=== PATIENT | female | born 1940 | race Two or more races ===

== ENCOUNTER 2019-07-04 11:59 | Inpatient (IN) | payer OTHER, MEDICAID ==
[~2019-07-04] VITALS: Ht 183.2 cm; Wt 73.8 kg
[2019-07-04] MEDS ORDERED: ASPirin 81 mg TAB PO ONE ×2 (12:45→13:00)
[2019-07-04 12:52] LABS: Basophils # (auto) 0.1 10 ^3/uL (0-0.2); Mean Corpuscular Volume 71.5 fL (80.0-100.0); Nucleated Red Blood Cells % 0.1 %; Red Blood Cells 3.96 10^6/uL (4.0-5.20)
[2019-07-04 12:54] LABS: Basophils % (auto) 0.7 % (0.0-2.0); Eosinophils # (auto) 0.2 10 ^3/uL (0-0.8); Eosinophils % (auto) 1.7 % (0.0-7.0); Hematocrit 28.4 % (36.0-46.0); Hemoglobin 8.8 g/dL (12.2-16.2); Lymphocytes % (auto) 22.2 % (10.0-50.0); Mean Corpuscular Hemoglobin 22.2 pg (28.0-32.0); Monocytes # (auto) 0.7 10 ^3/uL (0-1.3); Monocytes % (auto) 7.7 % (0.0-12.0); Neutrophils # (auto) 5.9 10 ^3/uL (1.6-8.6); Neutrophils % (auto) 67.7 % (37.0-80.0); Platelet Count (auto) 666 10^3/uL (140-450); White Blood Cell 8.8 10^3/uL (4.4-10.8)
[2019-07-04 13:02] LABS: Partial Thromboplastin Time 27.1 sec (23.64-32.05)
[2019-07-04 13:08] LABS: Albumin 3.8 g/dL (3.4-5.0); Anion Gap 8 (5-15); Blood Urea Nitrogen 14 mg/dL (7-18); Carbon Dioxide 24 mmol/L (21-32); Chloride 104 mmol/L (98-107); Glucose 116 mg/dL (74-106); Potassium 4.1 mmol/L (3.5-5.1); Sodium 136 mmol/L (136-145)
[2019-07-04 13:13] LABS: Alanine Aminotransferase 28 U/L (13-56); Alkaline Phosphatase 150 U/L (45-117); Aspartate Aminotransferase 13 U/L (15-37); BUN/Creatinine Ratio 15.6; Bilirubin, Total 0.2 mg/dL (0.2-1.0); GFR African American 78 mL/min; GFR Non-African American 65 mL/min; Total Protein 8.1 g/dL (6.4-8.2)
[2019-07-04] MEDS ORDERED: MORPHINE SULF INJ 2 MG/ML SYRINGE 1ML IV ONE (14:15)
[2019-07-04] MEDS ORDERED: ONDANSETRON HCL 4 MG/2 ML VIAL IV ONE (14:15)
[2019-07-04] MEDS ORDERED: ONDANSETRON HCL 4 MG/2 ML VIAL IV PRN (15:00)
[2019-07-04] MEDS ORDERED: NITROGLYCERIN 0.4 MG SL TAB SL PRN (15:00)
[2019-07-04] MEDS ORDERED: hydrALAZINE HCL 20 MG/ML VL IV PRN (15:00)
[2019-07-04] MEDS ORDERED: MORPHINE SULF INJ 2 MG/ML SYRINGE 1ML IV PRN ×2 (15:00)
[2019-07-04] MEDS ORDERED: BACLOFEN 10 MG TAB PO PRN (15:00)
[2019-07-04 15:19] VITALS: BP 107/33
[2019-07-04 16:00] VITALS: BP 127/67
[2019-07-04 16:55] VITALS: BP 127/67
[2019-07-04] MEDS: BUDESONIDE (INHALATION) 0.5 MG/2 ML NEB NEB SCH (18:27)
[2019-07-04] MEDS: IPRATROPIUM BROM 0.5 MG/2.5ML INH SOL NEB SCH (18:27)
[2019-07-04] MEDS: ALBUTEROL SULF 2.5 MG/0.5ML(0.5%) NEB SOLN NEB SCH (18:27)
[2019-07-04 21:00] VITALS: BP 135/60
[2019-07-04] MEDS ORDERED: TEMAZEPAM 15 MG CAP PO ONE (21:15)
[2019-07-04] MEDS: MONTELUKAST SODIUM 10 MG TAB PO SCH (21:25)
[2019-07-04] MEDS: ATORVASTATIN 20 MG TAB PO SCH (21:25)
[2019-07-04] MEDS ORDERED: METOPROLOL TARTRATE 25 MG TAB PO SCH (22:00)
[2019-07-05] MEDS ORDERED: ALBU2TAB4 PO (04:48)
[2019-07-05] MEDS ORDERED: BUPR150T6 PO (04:48)
[2019-07-05] MEDS ORDERED: ESCI20TA PO (04:48)
[2019-07-05] MEDS ORDERED: TRAM50TA2 PO (04:48)
[2019-07-05] MEDS ORDERED: GABA300C10 PO (04:48)
[2019-07-05] MEDS ORDERED: ASPI81CH43 PO (04:48)
[2019-07-05] MEDS ORDERED: MONT10TA34 OR (04:48)
[2019-07-05] MEDS ORDERED: ALEN1TAB32 PO (04:48)
[2019-07-05] MEDS ORDERED: ALBU2TAB4 INH (04:48)
[2019-07-05] MEDS ORDERED: DICL1.3D21 TD (04:48)
[2019-07-05] MEDS ORDERED: PRE1T PO (04:48)
[2019-07-05] MEDS ORDERED: BECL80AE11 IN (04:48)
[2019-07-05] MEDS ORDERED: LOSA-39 PO (04:48)
[2019-07-05 05:00] VITALS: BP 128/69
[2019-07-05 06:24] LABS: Basophils # (auto) 0 10 ^3/uL (0-0.2); Basophils % (auto) 0.7 % (0.0-2.0); Eosinophils # (auto) 0.2 10 ^3/uL (0-0.8); Eosinophils % (auto) 2.7 % (0.0-7.0); Hematocrit 26.2 % (36.0-46.0); Hemoglobin 8.4 g/dL (12.2-16.2); Lymphocytes # (auto) 1.3 10 ^3/uL (0.4-5.4); Lymphocytes % (auto) 19.4 % (10.0-50.0); Mean Corpuscular Hemoglobin 22.8 pg (28.0-32.0); Mean Corpuscular Hgb Conc. 31.9 g/dL (32.0-36.0); Mean Corpuscular Volume 71.4 fL (80.0-100.0); Monocytes # (auto) 0.6 10 ^3/uL (0-1.3); Monocytes % (auto) 8.2 % (0.0-12.0); Neutrophils # (auto) 4.7 10 ^3/uL (1.6-8.6); Nucleated Red Blood Cells % 0.1 %; Platelet Count (auto) 619 10^3/uL (140-450); Red Blood Cells 3.67 10^6/uL (4.0-5.20); Red Cell Distribution Width 17.8 % (11.8-14.3); White Blood Cell 6.8 10^3/uL (4.4-10.8)
[2019-07-05 06:41] LABS: BUN/Creatinine Ratio 19.3; Calcium 8.3 mg/dL (8.5-10.1); Potassium 4.2 mmol/L (3.5-5.1)
[2019-07-05 06:44] LABS: INR 1.02 (0.9-1.15); Partial Thromboplastin Time 27.1 sec (23.64-32.05)
[2019-07-05] MEDS: BUDESONIDE (INHALATION) 0.5 MG/2 ML NEB NEB SCH ×2 (07:45→18:11)
[2019-07-05] MEDS: ALBUTEROL SULF 2.5 MG/0.5ML(0.5%) NEB SOLN NEB SCH ×3 (07:45→18:11)
[2019-07-05] MEDS: IPRATROPIUM BROM 0.5 MG/2.5ML INH SOL NEB SCH ×3 (07:45→18:11)
[2019-07-05 08:00] VITALS: BP 101/49
[2019-07-05] MEDS: HYDROcodone-ACET 5/325MG TAB PO PRN ×2 (08:03→20:50)
[2019-07-05] MEDS: ASPirin-EC 81 mg tab PO SCH (09:27)
[2019-07-05] MEDS: LISINOPRIL 10 MG TAB PO SCH (09:28)
[2019-07-05 13:00] VITALS: BP 114/45
[2019-07-05 14:06] LABS: % Iron Saturation 3.1 % (15-50)
[2019-07-05 17:00] VITALS: BP 125/53
[2019-07-05 20:00] VITALS: BP 142/64
[2019-07-05] MEDS: CYCLOBENZAPRINE HCL 10 MG TAB PO PRN (20:50)
[2019-07-05 22:00] VITALS: BP 142/64
[2019-07-05] MEDS: METOPROLOL TARTRATE 25 MG TAB PO SCH (22:25)
[2019-07-05] MEDS: MONTELUKAST SODIUM 10 MG TAB PO SCH (22:25)
[2019-07-05] MEDS: ATORVASTATIN 20 MG TAB PO SCH (22:26)
[2019-07-06] MEDS: ACETAMINOPHEN 500 MG TAB PO PRN ×2 (04:55→13:18)
[2019-07-06] MEDS: CYCLOBENZAPRINE HCL 10 MG TAB PO PRN ×2 (04:55→22:02)
[2019-07-06 05:00] VITALS: BP 136/65
[2019-07-06] MEDS: IPRATROPIUM BROM 0.5 MG/2.5ML INH SOL NEB SCH ×3 (06:07→18:35)
[2019-07-06] MEDS: BUDESONIDE (INHALATION) 0.5 MG/2 ML NEB NEB SCH ×2 (06:07→18:35)
[2019-07-06] MEDS: ALBUTEROL SULF 2.5 MG/0.5ML(0.5%) NEB SOLN NEB SCH ×3 (06:07→18:35)
[2019-07-06 06:31] LABS: Hemoglobin 8.3 g/dL (12.2-16.2)
[2019-07-06 06:34] LABS: Hematocrit 25.8 % (36.0-46.0)
[2019-07-06 06:54] LABS: Cholesterol 134 mg/dL (< 200); HDL Cholesterol 39 mg/dL (40-59); LDL Cholesterol 72 mg/dL (< 100); Triglycerides 126 mg/dL (< 150)
[2019-07-06 09:00] VITALS: BP 121/50
[2019-07-06] MEDS: ASPirin-EC 81 mg tab PO SCH (09:13)
[2019-07-06] MEDS: LISINOPRIL 10 MG TAB PO SCH (09:14)
[2019-07-06] MEDS: METOPROLOL TARTRATE 25 MG TAB PO SCH ×2 (09:15→22:04)
[2019-07-06] MEDS: HYDROcodone-ACET 5/325MG TAB PO PRN ×2 (09:19→17:40)
[2019-07-06] MEDS ORDERED: LACTULOSE 20Gm/30ML SOLN PO PRN (09:45)
[2019-07-06 13:00] VITALS: BP 125/52
[2019-07-06] MEDS: DOCUSATE SOD 100 MG CAP PO SCH ×2 (13:16→22:00)
[2019-07-06 17:00] VITALS: BP 130/50
[2019-07-06 22:00] VITALS: BP 117/56
[2019-07-06] MEDS: ATORVASTATIN 20 MG TAB PO SCH (22:03)
[2019-07-06] MEDS: MONTELUKAST SODIUM 10 MG TAB PO SCH (22:03)
[2019-07-07 04:44] VITALS: BP 133/55
[2019-07-07] MEDS: IPRATROPIUM BROM 0.5 MG/2.5ML INH SOL NEB SCH ×2 (07:21→12:00)
[2019-07-07] MEDS: ALBUTEROL SULF 2.5 MG/0.5ML(0.5%) NEB SOLN NEB SCH ×2 (07:21→12:00)
[2019-07-07] MEDS: BUDESONIDE (INHALATION) 0.5 MG/2 ML NEB NEB SCH (07:21)
[2019-07-07 09:00] VITALS: BP 127/56
[2019-07-07] MEDS: CYCLOBENZAPRINE HCL 10 MG TAB PO PRN (09:07)
[2019-07-07] MEDS: ASPirin-EC 81 mg tab PO SCH (09:07)
[2019-07-07] MEDS: METOPROLOL TARTRATE 25 MG TAB PO SCH (09:08)
[2019-07-07] MEDS: LISINOPRIL 10 MG TAB PO SCH (09:09)
[2019-07-07] MEDS: DOCUSATE SOD 100 MG CAP PO SCH ×2 (09:09→09:12)
[2019-07-07 13:00] VITALS: BP 117/62
[2019-07-07 13:02] VITALS: BP 125/56
[2019-07-07 14:50] VITALS: BP 117/62
== END 2019-07-07 16:05 | disposition home or self-care (01) | DRG 206 ==
LOC: ER 11:59 → TELE 12:00 → TELE-EAST 15:46
PROVIDERS: ADMIT Nurse Practitioner Acute Care; ATTEND Internal Medicine
DX: M94.0 Chondrocostal junction syndrome [Tietze] (principal); D68.59 Other primary thrombophilia; D50.8 Other iron deficiency anemias; J44.9 Chronic obstructive pulmonary disease, unspecified; I10 Essential (primary) hypertension; M81.0 Age-related osteoporosis without current pathological fracture; F41.9 Anxiety disorder, unspecified; G89.29 Other chronic pain; I11.9 Hypertensive heart disease without heart failure; M48.00 Spinal stenosis, site unspecified; F32.9 Major depressive disorder, single episode, unspecified; M54.5 Low back pain; S32.020G Wedge compression fracture of second lumbar vertebra, subsequent encounter for fracture with delayed healing; S22.050G Wedge compression fracture of T5-T6 vertebra, subsequent encounter for fracture with delayed healing
CPT/HCPCS: 36415; 71046; 72128; 72131; 73010; 80048; 80053; 80061; 82270; 83036; 83540; 83550; 83735; 83880; 84443; 84484; 85014; 85018; 85025; 85379; 85610; 85730; 86141; 93005; 93306; 94640; 96374; 96375; 97116; 97163; 97530; G0378; J2405

== ENCOUNTER 2024-02-14 02:25 | Inpatient (IN) | payer OTHER, MEDICAID ==
[2024-02-14] VITALS (20 sets, daily range): BP systolic 103–140; BP diastolic 38–76; PULSE 21–103; RESP 18–41; TEMP 98.8; O2SAT 93–99
[~2024-02-14] VITALS: Ht 147.3 cm; Wt 57.8 kg
[~2024-02-14 02:25] MED LIST: ALBU2TAB11 INH; ALEN70TA74 PO; ASPI81CH43 PO; BECL80AE11 IN; BUPR150T18 PO; DICL1.3P TD; ESCI20TA PO; GABA-1250 PO; LOSA-535 PO; MONT-8 OR; PRE1T PO; TRAM50TA2 PO
[2024-02-14] MEDS: ALBUTEROL SULF 2.5 MG/0.5ML(0.5%) NEB SOLN NEB ONE ×2 (02:30→02:45)
[2024-02-14] MEDS: IPRATROPIUM BROM 0.5 MG/2.5ML INH SOL NEB ONE ×2 (02:30→02:45)
[2024-02-14] MEDS: methylPREDNISolone SOD SUCC 125 MG/2 ML VL IV ONE (02:39)
--- NOTE | 2024-02-14 03:01 | ED.PDOC ---
History of Present Illness HPI Comments 83 y/o F is BIBA for c/o shortness of breath, today. Per EMS report, patient endorses on sudden and unprovoked onset of difficulty breathing, this morning. She was noted to have been found with a SpO2 of 80%RA and wheezing and placed on CPAP after given a 1x breathing Tx en route. At time of assessment, patient denies having any chest pain, cough, fever, chills, or other associated symptoms or modifiers at this time. 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: Denies all WELL HEAD PUMPER Hx Family History Family History: Unknown Social History Smoker: Non-Smoker Alcohol: Denies ETOH Use Drugs: Denies Drug Use Lives In: Home Respiratory: reports: shortness of breath All Other Systems: Reviewed and Negative (negative unless otherwise stated above or in HPI) Physical Exam General Appearance: No Apparent Distress, Normal HEENT: Normal ENT Inspection, Pharynx Normal, TMs Normal Neck: Full Range of Motion, Non-Tender, Normal, Normal Inspection Respiratory: Decreased Breath Sounds, Respiratory Distress, Wheezing, Other (labored breathing, on CPAP, chest tightness) Cardiovascular: No Edema, No JVD, No Murmur, No Gallop, Normal Peripheral Pulses, Regular Rate/Rhythm Breast Exam: Deferred Gastrointestinal: No Organomegaly, Non Tender, No Pulsatile Mass, Normal Bowel Sounds, Soft Genitalia: Deferred Pelvic: Deferred Rectal: Deferred Extremities: No calf tenderness, Normal capillary refill, Normal inspection, Normal range of motion, Non-tender, No pedal edema Musculoskeletal : Apperance: Normal Neurologic: Alert, printing services coordinator II-XII nml as Tested, No Motor Deficits, Normal Affect, Normal Mood, No Sensory Deficits Cerebellar Function: Normal Reflexes: Normal Skin: Dry, Normal Color, Warm Lymphatic: No Adenopathy Was a procedure done? Was a procedure done?: No EKG EKG : Pulse Rate (adult): 91 Weed: Normal Cardiac Rhythm: NSR Block: None Hypertrophy: None ST: Normal Differential Dx Considerations may include: respiratory distress, URI, viral syndrome, PE, PNA, pleural effusions X-Ray, Labs, Meds, VS Vital Signs Date Time Temp Pulse Resp B/P (MAP) Pulse Ox O2 Delivery O2 Flow Rate FiO2 02/14/24 04:04 109 Facial BiPAP Mask 50 02/14/24 04:00 83 27 125/40 (68) 95 02/14/24 03:01 91 02/14/24 02:53 103 41 99 Bi-Pap+ 100 100 02/14/24 02:42 91 02/14/24 02:36 103 41 143/85 (104) 99 02/14/24 02:35 116 Facial BiPAP Mask 100 02/14/24 02:25 97.0 87 38 127/86 (100) 91 Lab Test 02/14/24 05:10 02/14/24 04:04 02/14/24 03:38 Range/Units Troponin I High Sensitivity Pending 67 *H </=34 ng/L White Blood Count 20.0 H 4.4-10.8 10^3/uL Red Blood Count 4.30 4.0-5.20 10^6/uL Hemoglobin 11.4 L 12.2-16.2 g/dL Hematocrit 34.5 L 36.0-46.0 % Mean Corpuscular Volume 80.2 80.0-100.0 fL Mean Corpuscular Hemoglobin 26.5 L 28.0-32.0 pg Mean Corpuscular Hemoglobin Concent 33.1 32.0-36.0 g/dL Red Cell Distribution Width 15.1 H 11.8-14.3 % Platelet Count 467 H 140-450 10^3/uL Mean Platelet Volume 7.9 6.9-10.8 fL Neutrophils (%) (Auto) 88.7 H 37.0-80.0 % Lymphocytes (%) (Auto) 8.0 L 10.0-50.0 % Monocytes (%) (Auto) 2.5 0.0-12.0 % Eosinophils (%) (Auto) 0.6 0.0-7.0 % Basophils (%) (Auto) 0.2 0.0-2.0 % Neutrophils # (Auto) 17.7 H 1.6-8.6 10 ^3/uL Lymphocytes # (Auto) 1.6 0.4-5.4 10 ^3/uL Monocytes # (Auto) 0.5 0-1.3 10 ^3/uL Eosinophils # (Auto) 0.1 0-0.8 10 ^3/uL Basophils # (Auto) 0 0-0.2 10 ^3/uL Nucleated Red Blood Cells 0.0 % Prothrombin Time 11.1 9.3-11.8 sec Prothrombin Time INR 1.05 0.9-1.15 Activated Partial Thromboplast Time 20.0 L 24.5-34.5 SEC Sodium Level 140 136-145 mmol/L Potassium Level 3.3 L 3.5-5.1 mmol/L Chloride Level 107 98-107 mmol/L Carbon Dioxide Level 23 20-31 mmol/L Anion Gap 10 5-15 Blood Urea Nitrogen 10 9-23 mg/dL Creatinine 0.92 0.550-1.02 mg/dL Glomerular Filtration Rate Calc 62 >90 mL/min BUN/Creatinine Ratio 10.9 10.0-20.0 Serum Glucose 185 H 74-106 mg/dL Calcium Level 9.2 8.7-10.4 mg/dL Magnesium Level 1.9 1.6-2.6 mg/dL Total Bilirubin 0.2 0.2-1.0 mg/dL Aspartate Amino Transferase (AST) 13 13-40 U/L Alanine Aminotransferase (ALT) 18 7-40 U/L Alkaline Phosphatase 115 46-116 U/L B-Type Natriuretic Peptide 439.38 0-100 pg/mL Total Protein 6.5 5.7-8.2 g/dL Albumin 4.0 3.2-4.8 g/dL Blood Gas Specimen Type Arterial Blood Gas Sample Site Right radial Blood Gas Patient Temperature 37.0 Arterial Blood Date Drawn [id number] Arterial Blood pH 7.313 L 7.350-7.450 Arterial Blood Partial Pressure CO2 40.2 32.0-45.0 mmHg Arterial Blood Partial Pressure O2 195.3 H 83.0-108.0 mmHg Arterial Blood HCO3 19.9 L 21.0-28.0 mmol/L Arterial Blood Oxygen Saturation 99.4 H 94.0-98.0 % Arterial Blood Base Excess -5.9 L -2.0-3.0 mmol/L Arterial Blood Oxyhemoglobin 98.5 H 94.0-98.0 % Arterial Blood Carboxyhemoglobin 0.3 L 0.5-1.5 % Arterial Blood Methemoglobin 0.6 0.0-1.5 % Naga Test Yes Blood Gas Total Hemoglobin 12.40 12.0-16.0 g/dL Blood Gas Modality Mask - bipap Blood Gas Spontaneous Rate 27 FiO2 % 100.0 Blood Gas EPAP 6 Blood Gas IPAP 12 Current Medications Medications (Trade) Dose Ordered Sig/Bria Route Start Time Stop Time Status Last Admin Methylprednisolone Sodium Succinate (Solu Medrol) 250 mg ONCE ONCE IV 02/14/24 02:30 02/14/24 02:31 DC 02/14/24 02:39 Ceftriaxone Sodium 50 ml @ 100 mls/hr ONCE ONCE IV 02/14/24 03:00 02/14/24 03:29 DC 02/14/24 03:10 [place] [id number] Ph: [phone] DIAGNOSTIC IMAGING Diagnostic Imaging Report : [id number] Signed PATIENT: SYL CULLEN ACCT: [id number] UNIT: [id number] : 1940 LOC: ER ROOM / BED: / AGE / SEX: 83 / F ADM STATUS: REG ER SERVICE 8 ORDERING PHYSICIAN: KATHERYN WESTFALL MD PROCEDURE(s): CXRP - CHEST PORTABLE REASON: SOB ORDER NUMBER(s): [id number], ACCESSION NUMBER(s): [id number] Examination: CXRP CLINICAL INDICATION: SOB COMPARISON: None. Technique: Frontal radiograph of the chest was obtained. Findings: Prominent vascular markings are seen in bilateral lung harmon. Mild bilateral pleural effusion. Moderate cardiomegaly. Rest of the lungs are clear and well expanded with no pulmonary infiltrate. There is no pneumothorax. No acute osseous abnormality is seen. Impression: 1. Prominent vascular markings are seen in bilateral lung harmon. 2. Mild bilateral pleural effusion. 3. Moderate cardiomegaly. 4. Features suggestive of pulmonary edema. 5. Suggest clinical correlation, follow-up. Electronically Signed 02/14/2024 03:05 Larisa Xiong ATED BY: JIM DE OLIVEIRA MD DICTATED DATE/TIME: 02/14/24 0305 SIGNED BY: JIM DE OLIVEIRA MD SIGNED DATE/TIME: 02/14/24 0301 CC: Troponin is 67 EKG shows no signs of ischemia BNP is 440 [place] [address]. Patient was placed on Rocephin and given Lasix for CHF and possible pneumonia while on CPAP. DuoNeb Rocephin was also given for possible pneumonia versus COPD exacerbation The patient will be admitted to the hospitalist for further evaluation and care. Time of 1ST Reevaluation: 03:00 Reevaluation 1ST: Unchanged Patient Education/Counseling: Diagnosis, Treatment Family Education/Counseling: No Family Present Departure 1 Departure Time of Disposition: 05:39 Impression: Primary Impression: Congestive heart failure Qualified Codes: I50.9 - Heart failure, unspecified Additional Impressions: Elevated troponin Pleural effusion Pulmonary edema Qualified Codes: J81.0 - Acute pulmonary edema Acute hypoxic on chronic hypercapnic respiratory failure Pneumonia Qualified Codes: J18.9 - Pneumonia, unspecified organism Admit to: ICU Condition: Critical Critical Care Note Critical Care Time?: Yes Stability Stability form required: No Heart Score Heart Score: Heart Score Response (Comments) Value History Moderate Suspicious 1 EKG Normal 0 Age >65 2 Risk Factors 1 or 2 risk factors 1 Troponin N/A 0 Total 4 I personally scribed for KATHERYN WESTFALL MD ([email or web address]) on 02/14/24 at 03:01. Electronically submitted by Melchor Reyes ([email or web address]). KATHERYN WESTFALL MD Feb 14, 2024 03:01
--- NOTE | 2024-02-14 03:06 | DVH ---
Examination: CXRP CLINICAL INDICATION: SOB COMPARISON: None. Technique: Frontal radiograph of the chest was obtained. Findings: Prominent vascular markings are seen in bilateral lung harmon. Mild bilateral pleural effusion. Moderate cardiomegaly. Rest of the lungs are clear and well expanded with no pulmonary infiltrate. There is no pneumothorax. No acute osseous abnormality is seen. Impression: 1. Prominent vascular markings are seen in bilateral lung harmon. 2. Mild bilateral pleural effusion. 3. Moderate cardiomegaly. 4. Features suggestive of pulmonary edema. 5. Suggest clinical correlation, follow-up. Electronically Signed 02/14/2024 03:05 Larisa Xiong
[2024-02-14] MEDS: cefTRIAXone 1GM/50ML D5W 50 ML IV ONE (03:10)
[2024-02-14 04:05] LABS: Base Excess -5.9 mmol/L (-2.0-3.0)
[2024-02-14 04:41] LABS: Alanine Aminotransferase 18 U/L (7-40); Alkaline Phosphatase 115 U/L (46-116); Anion Gap 10 (5-15); Aspartate Aminotransferase 13 U/L (13-40); BUN/Creatinine Ratio 10.9 (10.0-20.0); Blood Urea Nitrogen 10 mg/dL (9-23); Calcium 9.2 mg/dL (8.7-10.4); Carbon Dioxide 23 mmol/L (20-31); Magnesium 1.9 mg/dL (1.6-2.6); Sodium 140 mmol/L (136-145); Total Protein 6.5 g/dL (5.7-8.2)
[2024-02-14 04:42] LABS: INR 1.05 (0.9-1.15); Prothrombin Time 11.1 sec (9.3-11.8)
[2024-02-14 04:46] LABS: Basophils # (auto) 0 10 ^3/uL (0-0.2); Basophils % (auto) 0.2 % (0.0-2.0); Eosinophils # (auto) 0.1 10 ^3/uL (0-0.8); Eosinophils % (auto) 0.6 % (0.0-7.0); Hematocrit 34.5 % (36.0-46.0); Hemoglobin 11.4 g/dL (12.2-16.2); Lymphocytes # (auto) 1.6 10 ^3/uL (0.4-5.4); Mean Corpuscular Hemoglobin 26.5 pg (28.0-32.0); Mean Corpuscular Hgb Conc. 33.1 g/dL (32.0-36.0); Mean Corpuscular Volume 80.2 fL (80.0-100.0); Monocytes # (auto) 0.5 10 ^3/uL (0-1.3); Monocytes % (auto) 2.5 % (0.0-12.0); Neutrophils # (auto) 17.7 10 ^3/uL (1.6-8.6); Neutrophils % (auto) 88.7 % (37.0-80.0); Platelet Count (auto) 467 10^3/uL (140-450); Red Cell Distribution Width 15.1 % (11.8-14.3)
[2024-02-14 04:48] LABS: Bilirubin, Total 0.2 mg/dL (0.2-1.0); Chloride 107 mmol/L (98-107); Glucose 185 mg/dL (74-106); Potassium 3.3 mmol/L (3.5-5.1)
[2024-02-14] MEDS: FUROSEMIDE 40 MG/4 ML VIAL IV ONE (06:12)
[2024-02-14] MEDS ORDERED: DEXTROSE (50%) 50ML SYRG IV PRN (06:30)
[2024-02-14] MEDS ORDERED: IPRATROPIUM BROM 0.5 MG/2.5ML INH SOL NEB PRN (06:30)
[2024-02-14] MEDS ORDERED: ALBUTEROL SULF 2.5 MG/0.5ML(0.5%) NEB SOLN NEB PRN (06:30)
--- NOTE | 2024-02-14 06:36 | ECG ---
[facility] Test Date: 2024-02-14 Test Time: 02:42:56 Pat Name: SYL CULLEN Department: ED Room: [address] [place] [address] Gender: F Transportation Officer: ZACH : 1940 Requested By: KATHERYN WESTFALL Order Number: [id number] Reading MD: Joseph Gould Measurements Intervals [place] Rate: 91 P: 53 AL: 151 QRS: 32 QRSD: 94 T: 121 QT: 372 QTc: 458 Interpretive Statements Sinus rhythm Multiple premature complexes, vent & supraven Borderline repolarization abnormality Electronically Signed On 02-14-2024 18:28:36 PST by Joseph Gould Please click the below link to view image of tracing.
--- NOTE | 2024-02-14 06:50 | DVHHP2 ---
History of Present Illness Reason for Visit: Shortness of breath History of Present Illness María Padilla is a an 83-year-old female with past medical history of hypertension, hyperlipidemia, depression, oa, and anxiety who presents to the ED for shortness of breath x1 day. Patient reports that she lives with her family and she just suddenly woke up feeling short of breath was in a tripod position. EMS was called placed her on a CPAP and brought her to the ER for evaluation. Patient also reports that she uses about 2-3 L of nasal cannula on and off at home for shortness of breath. Patient states that there are no triggering or alleviating factors. Patient also reports that she is compliant with her medications and she has been seeing her PCP regularly. Patient denies any chest pain, fever, chills, nausea, vomiting, abdominal pain, lightheadedness, dizziness, any recent sick contacts, and any recent travels. Cardiovascular: HTN, hyperipidemia Psych: Anxiety, Depression Past Medical History Osteoarthritis Family History: Other (Dad throat cancer Mom emphysema) Smoke: No ALCOHOL: none Lives: with Family Domestic Violence: Neg Review of Systems Constitutional: No: Fever, Chills, Sweats, Weakness, Malaise, Other Eyes: No: Pain, Vision change, Conjunctivae inflammation, Eyelid inflammation, Other, Redness ENT: No: Ear pain, Ear discharge, Nose pain, Nose discharge, Nose congestion, Mouth pain, Mouth swelling, Throat pain, Throat swelling, Other Respiratory: Shortness of breath; No: Cough, Dry, SOB with excertion, Wheezing, Hemoptysis, Pleuritic Pain, Sputum, Wheezing, Other Cardiovascular: Other (Chest tightness); No: Chest Pain, Palpitations, Orthopnea, Paroxysmal Noc. Dyspnea, Edema, Lt Headedness Gastrointestinal: No: Nausea, Vomiting, Abdominal Pain, Diarrhea, Constipation, Melena, Hematochezia, Other Genitourinary: No Dysuria, No Frequency, No Incontinence, No Hematuria, No Retention, No Other Musculoskeletal: No: other, neck pain, shoulder pain, arm pain, back pain, hand pain, leg pain, foot pain Skin: No: Rash, Lesions, Jaundice, Bruising, Other Neurological: No: Weakness, Numbness, Incoordination, Change in speech, Confusion, Seizures, Other Allergies: Coded Allergies: NO KNOWN ALLERGIES (Unverified , 02/14/24) Exam Vital Signs Vital Signs Date Time Temp Pulse Resp B/P (MAP) Pulse Ox O2 Delivery O2 Flow Rate FiO2 02/14/24 06:00 75 20 120/38 (65) 95 02/14/24 04:04 Facial BiPAP Mask 50 02/14/24 02:25 97.0 General Appearance: Alert, Oriented X3, Cooperative, mild distress HEENT: Atraumatic, PERRLA, EOMI, Mucous membr. moist/pink Respiratory: Normal air movement Cardiovascular: Regular rate, Normal S1, Normal S2, No murmurs Abdominal: Normal bowel sounds, Soft, No tenderness, No hepatospenomegaly, No masses Extremities: No clubbing, No cyanosis, No edema, Normal pulses, No tenderness/swelling Skin: No rashes, No breakdown, No significant lesion Neuro: Normal gait, Normal speech, Strength at 5/5 X4 ext, Normal tone, Sensation intact Psych/Mental Status: Mental status NL, Mood NL Labs/Xrays Labs Test 02/14/24 05:10 02/14/24 04:04 02/14/24 03:38 Range/Units Troponin I High Sensitivity 88 *H </=34 ng/L White Blood Count 20.0 H 4.4-10.8 10^3/uL Red Blood Count 4.30 4.0-5.20 10^6/uL Hemoglobin 11.4 L 12.2-16.2 g/dL Hematocrit 34.5 L 36.0-46.0 % Mean Corpuscular Volume 80.2 80.0-100.0 fL Mean Corpuscular Hemoglobin 26.5 L 28.0-32.0 pg Mean Corpuscular Hemoglobin Concent 33.1 32.0-36.0 g/dL Red Cell Distribution Width 15.1 H 11.8-14.3 % Platelet Count 467 H 140-450 10^3/uL Mean Platelet Volume 7.9 6.9-10.8 fL Neutrophils (%) (Auto) 88.7 H 37.0-80.0 % Lymphocytes (%) (Auto) 8.0 L 10.0-50.0 % Monocytes (%) (Auto) 2.5 0.0-12.0 % Eosinophils (%) (Auto) 0.6 0.0-7.0 % Basophils (%) (Auto) 0.2 0.0-2.0 % Neutrophils # (Auto) 17.7 H 1.6-8.6 10 ^3/uL Lymphocytes # (Auto) 1.6 0.4-5.4 10 ^3/uL Monocytes # (Auto) 0.5 0-1.3 10 ^3/uL Eosinophils # (Auto) 0.1 0-0.8 10 ^3/uL Basophils # (Auto) 0 0-0.2 10 ^3/uL Nucleated Red Blood Cells 0.0 % Prothrombin Time 11.1 9.3-11.8 sec Prothrombin Time INR 1.05 0.9-1.15 Activated Partial Thromboplast Time 20.0 L 24.5-34.5 SEC Sodium Level 140 136-145 mmol/L Potassium Level 3.3 L 3.5-5.1 mmol/L Chloride Level 107 98-107 mmol/L Carbon Dioxide Level 23 20-31 mmol/L Anion Gap 10 5-15 Blood Urea Nitrogen 10 9-23 mg/dL Creatinine 0.92 0.550-1.02 mg/dL Glomerular Filtration Rate Calc 62 >90 mL/min BUN/Creatinine Ratio 10.9 10.0-20.0 Serum Glucose 185 H 74-106 mg/dL Calcium Level 9.2 8.7-10.4 mg/dL Magnesium Level 1.9 1.6-2.6 mg/dL Total Bilirubin 0.2 0.2-1.0 mg/dL Aspartate Amino Transferase (AST) 13 13-40 U/L Alanine Aminotransferase (ALT) 18 7-40 U/L Alkaline Phosphatase 115 46-116 U/L B-Type Natriuretic Peptide 439.38 0-100 pg/mL Total Protein 6.5 5.7-8.2 g/dL Albumin 4.0 3.2-4.8 g/dL Blood Gas Specimen Type Arterial Blood Gas Sample Site Right radial Blood Gas Patient Temperature 37.0 Arterial Blood Date Drawn [id number] Arterial Blood pH 7.313 L 7.350-7.450 Arterial Blood Partial Pressure CO2 40.2 32.0-45.0 mmHg Arterial Blood Partial Pressure O2 195.3 H 83.0-108.0 mmHg Arterial Blood HCO3 19.9 L 21.0-28.0 mmol/L Arterial Blood Oxygen Saturation 99.4 H 94.0-98.0 % Arterial Blood Base Excess -5.9 L -2.0-3.0 mmol/L Arterial Blood Oxyhemoglobin 98.5 H 94.0-98.0 % Arterial Blood Carboxyhemoglobin 0.3 L 0.5-1.5 % Arterial Blood Methemoglobin 0.6 0.0-1.5 % Naga Test Yes Blood Gas Total Hemoglobin 12.40 12.0-16.0 g/dL Blood Gas Modality Mask - bipap Blood Gas Spontaneous Rate 27 FiO2 % 100.0 Blood Gas EPAP 6 Blood Gas IPAP 12 Examination: CXRP CLINICAL INDICATION: SOB COMPARISON: None. Technique: Frontal radiograph of the chest was obtained. Findings: Prominent vascular markings are seen in bilateral lung harmon. Mild bilateral pleural effusion. Moderate cardiomegaly. Rest of the lungs are clear and well expanded with no pulmonary infiltrate. There is no pneumothorax. No acute osseous abnormality is seen. Impression: 1. Prominent vascular markings are seen in bilateral lung harmon. 2. Mild bilateral pleural effusion. 3. Moderate cardiomegaly. 4. Features suggestive of pulmonary edema. 5. Suggest clinical correlation, follow-up. Assessment/Plan Assessment/Plan Assessment/Plan: Acute HF exacerbation Leukocytosis likely secondary to pneumonia R/O sepsis Trop IV antibiotics BiPAP Flu swab COVID ABG EKG Mag level UA Chest x-ray noted PT/PTT BNP Respiratory treatments IV steroids Inhaled steroids Lasix A.m. labs Labs EKG Echo Pain management Antiemetics TSH Cardiology consult asa statin gdmt tx (metop, losartan, spironolactone, jardiance) lactic blood cultures Hyperglycemia HgbA1C ISS and accuchecks Hypokalemia Replete lytes Monitor labs Chronic hyperlipidemia Follow up with PCP outpatient Chronic depression Chronic anxiety Continue home medications Chronic OA Continue home medications FEN/PPX cardiac diet hl DVT ppx - lovenox PUD ppx - famotidine with steroids Home medications reconciled Discussed plan of care with patient and nurse Admit to [facility] Plan discussed with: Patient, Daughter My Orders Orders - VIRI LUX Procedure Category Date Status Time Magnesium Nirmal PHA 02/14/24 Transmitted 06:30 Potassium Chl Nirmal PHA 02/14/24 Transmitted KCL 06:30 Furosemide Injection PHA 02/14/24 Transmitted (Lasix Injection) 10:00 Admit ADMIT 02/14/24 Transmitted 06:20 Allergies IVORY 02/14/24 Transmitted 06:20 Code Status CODE 02/14/24 Transmitted 06:20 Hydrocodone-Acet PHA 02/14/24 Transmitted 5/325mg Tab ([place] 06:30 Ondansetron Hcl PHA 02/14/24 Transmitted (Zofran) 06:30 Enoxaparin Sodium PHA 02/14/24 Transmitted (Lovenox) 10:00 Complete Blood Count LAB 02/15/24 Verified 04:00 Comprehensive LAB 02/15/24 Verified Metabolic Panel 04:00 Cardiac DIET 02/14/24 Transmitted Diet-2gna,Lofat,Lochol Breakfast Echo 2d Mode Cardiac US 02/14/24 Transmitted DOP 06:20 Acetaminophen Tablet PHA 02/14/24 Transmitted (Tylenol Tablet) 06:30 Morphine Sulfate PHA 02/14/24 Transmitted Injection 06:30 Nitroglycerin MERGED WITH [facility] 02/14/24 Transmitted Sublingual (Ntrostat 06:30 Morphine Sulfate PHA 02/14/24 Transmitted Injection 06:30 Stat Ekg For Chest [facility] 02/14/24 Transmitted Pain 06:20 Notify Of Changes [facility] 02/14/24 Transmitted From Base 06:20 Balance Assembler For [facility] 02/14/24 Transmitted 24 Hours 06:20 Emergency Dysrhythmia [facility] 02/14/24 Transmitted Protocol 06:20 Rhythm Strips Once [facility] 02/14/24 Transmitted Every Shift 06:20 Oxygen By Nasal RT 02/14/24 Transmitted Cannula 06:20 Glucose Blood MERGED WITH [facility] 02/14/24 Transmitted (Accu-Chek Comfort 07:00 Mild Sliding Scale PHA 02/14/24 Transmitted 07:00 Dextrose 50% Syringe PHA 02/14/24 Transmitted 06:30 Hemoglobin A1c LAB 02/14/24 Transmitted 06:20 Ceftriaxone Ivpb PHA 02/14/24 Transmitted Rocephin 09:00 Azithromycin 500mg/ PHA 02/14/24 Transmitted 250ml (Zithromax 50 10:00 Azithromycin 500mg/ PHA 02/14/24 Transmitted 250ml (Zithromax 50 06:30 Albuterol Medneb PHA 02/14/24 Transmitted (Ventolin Medneb) 12:00 Albuterol Medneb PHA 02/14/24 Transmitted (Ventolin Medneb) 06:30 Ipratropium Medneb PHA 02/14/24 Transmitted (Atrovent Medneb) 12:00 Ipratropium Medneb PHA 02/14/24 Transmitted (Atrovent Medneb) 06:30 Budesonide PHA 02/14/24 Transmitted (Inhalation) 10:00 Methylprednisolone PHA 02/14/24 Transmitted Sod Succ (Solu Medrol 14:00 Famotidine Injection PHA 02/14/24 Transmitted (Pepcid Injection) 10:00 Date of Service: Feb 14, 2024 Billing Provider: VIRI LUX Common Visit Codes: [id number] INP/OBS CARE (HIGH) VIRI LUX Feb 14, 2024 06:50
[2024-02-14] MEDS: MAGNESIUM SULFATE 1GM/100ML 100 ML IV ONE (06:57)
[2024-02-14] MEDS: ACCU-CHEK COMFORT CURVE STRIP VI SCH (07:07)
[2024-02-14] MEDS: InsuLIN REG 1unit/0.01ml Soln (100units/ml) SC SCH (07:07)
[2024-02-14 07:46] LABS: COVID19 ANTIGEN SOFIA FIA NEGATIVE (NEGATIVE)
[2024-02-14 07:47] LABS: Rapid Influenza A Negative (Negative); Rapid Influenza B Negative (Negative)
[2024-02-14] MEDS: POTASSIUM CHLORIDE 40 MEQ, LIDOCAINE 1% (LOCAL ANESTH.) 4 ML in SODIUM CHL 0.9% 250 ML IV ONE (08:15)
[2024-02-14] MEDS: AZITHROMYCIN 500MG/ 250ML 250 ML IV ONE (09:53)
[2024-02-14] MEDS ORDERED: FUROSEMIDE 20 MG/2 ML VIAL IV SCH (10:00)
--- NOTE | 2024-02-14 10:09 | DVHINCON2 ---
Date Seen: Feb 14, 2024 Referring Physician KARI Dasilva Reason for Consultation Elevated troponin History of Present Illness This is an 83-year-old female patient who presents to the emergency room with chief complaint of shortness of breath that began yesterday. Patient reports she was sleeping when suddenly she woke up feeling extremely short of breath. EMS was called and the patient was brought to the emergency room for further evaluation. Initial twelve lead electrocardiogram reveals normal sinus rhythm with PVCs. She denies any chest pain or palpitations. Initial troponin level of 67ng/L with peak level at 105ng/L. Initial BNP level of 439.38pg/mL. Significant past medical history includes hypertension, COPD with home O2 as needed, peripheral neuropathy, osteoporosis, anxiety, and previous tobacco use. The patient denies following up with a hogshead hand in the outpatient setting. Patient reports her PCP is Dr. Swenson. Past Medical History Past medical history reviewed. No other significant than mentioned above. Past Surgical History Lymph node removal Hysterectomy Partial thyroidectomy Family History Family history reviewed. Social History Patient has a 58 pack-year history, quit smoking approximately three years ago Patient denies any drug use Patient denies any alcohol use Allergies: Coded Allergies: NO KNOWN ALLERGIES (Unverified , 02/14/24) Home Meds Reported Medications Escitalopram Oxalate (ESCITALOPRAM OXALATE) 20 Mg Tab, 0.5 TAB PO DAILY 02/14/24 Alendronate Sodium (Alendronate Sodium) 70 Mg Tab, 1 TAB PO QWEEKLY 02/14/24 Losartan Potassium (Losartan Potassium) 50 Mg Tab, 1 TAB PO DAILY 02/14/24 Current Medications Current Medications Medications (Trade) Dose Ordered Sig/Bria Route PRN Reason Start Time Stop Time Status Last Admin Furosemide (Lasix Injection) 20 mg DAILY IV 02/14/24 10:00 02/14/24 08:50 DC Acetaminophen/ Hydrocodone Bitart (Rulo 5/325MG Tab) 1 tab Q4HP PRN PO MODERATE PAIN (4-6 PAIN SCALE) 02/14/24 06:30 Ondansetron HCl (Zofran) 4 mg Q4HP PRN IV NAUSEA / VOMITING 02/14/24 06:30 Enoxaparin Sodium (Lovenox) 40 mg DAILY SC 02/14/24 10:00 Acetaminophen (Tylenol Tablet) 650 mg Q6HP PRN PO PAIN SCALE 1-3 OR TEMP>100.4 02/14/24 06:30 Morphine Sulfate 2 mg Q4HPRN PRN IV SEVERE PAIN (7-10 PAIN SCALE) 02/14/24 06:30 Nitroglycerin (Ntrostat Sublingual) 0.4 mg Q5MINP PRN SL FOR CHEST PAIN 02/14/24 06:30 Morphine Sulfate 2 mg Q30M PRN IV FOR CHEST PAIN 02/14/24 06:30 Diagnostic Test (Pha) (Accu-Chek Comfort Curve T) 1 strip ACHS 02/14/24 07:00 02/14/24 07:07 Insulin Human Regular (InsuLIN R) ACHS SC 02/14/24 07:00 02/14/24 07:07 Dextrose 50 ml UD PRN IV Blood Sugar LESS THAN 60 02/14/24 06:30 Ceftriaxone Sodium 50 ml @ 100 mls/hr DAILY@09 IV 02/15/24 09:00 Azithromycin 250 ml @ 125 mls/hr DAILY IV 02/15/24 10:00 Albuterol (Ventolin Medneb) 2.5 mg Q6HWA NEB 02/14/24 12:00 Albuterol (Ventolin Medneb) 2.5 mg Q4HPRN PRN NEB SHORTNESS OF BREATH 02/14/24 06:30 Ipratropium [place] (Atrovent Medneb) 0.5 mg Q6HWA NEB 02/14/24 12:00 Ipratropium [place] (Atrovent Medneb) 0.5 mg Q4HPRN PRN NEB SHORTNESS OF BREATH 02/14/24 06:30 Budesonide (Pulmicort) 0.5 mg BID NEB 02/14/24 10:00 Methylprednisolone Sodium Succinate (Solu Medrol) 40 mg Q8HR IV 02/14/24 14:00 Famotidine (Pepcid Injection) 20 mg DAILY IV 02/14/24 10:00 Aspirin 81 mg DAILY PO 02/14/24 10:00 Atorvastatin Calcium (Lipitor) 40 mg HS PO 02/14/24 22:00 Metoprolol Tartrate (Lopressor Tablet) 12.5 mg BID PO 02/14/24 10:00 Losartan Potassium (Cozaar Tablet) 12.5 mg DAILY PO 02/14/24 10:00 Empaglifozin (Jardiance) 10 mg DAILY PO 02/14/24 10:00 Spironolactone (Aldactone) 25 mg DAILY PO 02/14/24 10:00 Review of Systems Constitutional: No symptom reported Ears, Nose, & Throat: No symptom reported Eyes: No symptom reported Neurological: No symptoms reported Pulmonary/Respiratory: Shortness of breath Cardiovascular: No symptom reported Gastrointestinal: No symptom reported Genitourinary: No symptom reported Musculoskeletal: No symptom reported Skin: No symptom reported Psychiatric: No symptom reported Endocrine: No symptom reported Hematologic/Lymphatic: No symptom reported Vital Signs Vital Signs Date Time Temp Pulse Resp B/P (MAP) Pulse Ox O2 Delivery O2 Flow Rate FiO2 02/14/24 08:34 82 123/57 97 Facial BiPAP Mask 50 02/14/24 07:30 20 02/14/24 07:30 98.3 98.3 Physical Exam General Appearance: Cooperative. Well-developed. Well-nourished. No acute distress. Pulmonary/Respiratory: Coarse throughout Cardiovascular/Chest: Regular rate and rhythm. Peripheral Pulses: 2+ Radial (R). 2+ Radial (L). 2+ Pedal (R). 2+ Pedal (L) Abdominal Exam: Normal bowel sounds. Ankle Exam: Negative ankle edema Lower extremities: Negative lower extremity edema Neuro/Mental Status: A/OX4, coherent. Thoughts/Psych: Normal thought pattern. Appropriate mood and affect. Good judgment and insight. Appearance: No acute distress. Skin Exam: Normal inspection. Normal color. Warm and dry. Labs/Diagnostic Data Labs Test 02/14/24 07:45 02/14/24 05:59 02/14/24 04:04 02/14/24 03:38 Range/Units Troponin I High Sensitivity 105 *H </=34 ng/L Albumin 4.0 3.2-4.8 g/dL Influenza Type A Antigen Negative Negative Influenza Type B Antigen Negative Negative SARS-CoV-2 Antigen (Rapid) Negative NEGATIVE White Blood Count 20.0 H 4.4-10.8 10^3/uL Red Blood Count 4.30 4.0-5.20 10^6/uL Hemoglobin 11.4 L 12.2-16.2 g/dL Hematocrit 34.5 L 36.0-46.0 % Mean Corpuscular Volume 80.2 80.0-100.0 fL Mean Corpuscular Hemoglobin 26.5 L 28.0-32.0 pg Mean Corpuscular Hemoglobin Concent 33.1 32.0-36.0 g/dL Red Cell Distribution Width 15.1 H 11.8-14.3 % Platelet Count 467 H 140-450 10^3/uL Mean Platelet Volume 7.9 6.9-10.8 fL Neutrophils (%) (Auto) 88.7 H 37.0-80.0 % Lymphocytes (%) (Auto) 8.0 L 10.0-50.0 % Monocytes (%) (Auto) 2.5 0.0-12.0 % Eosinophils (%) (Auto) 0.6 0.0-7.0 % Basophils (%) (Auto) 0.2 0.0-2.0 % Neutrophils # (Auto) 17.7 H 1.6-8.6 10 ^3/uL Lymphocytes # (Auto) 1.6 0.4-5.4 10 ^3/uL Monocytes # (Auto) 0.5 0-1.3 10 ^3/uL Eosinophils # (Auto) 0.1 0-0.8 10 ^3/uL Basophils # (Auto) 0 0-0.2 10 ^3/uL Nucleated Red Blood Cells 0.0 % Prothrombin Time 11.1 9.3-11.8 sec Prothrombin Time INR 1.05 0.9-1.15 Activated Partial Thromboplast Time 20.0 L 24.5-34.5 SEC Sodium Level 140 136-145 mmol/L Potassium Level 3.3 L 3.5-5.1 mmol/L Chloride Level 107 98-107 mmol/L Carbon Dioxide Level 23 20-31 mmol/L Anion Gap 10 5-15 Blood Urea Nitrogen 10 9-23 mg/dL Creatinine 0.92 0.550-1.02 mg/dL Glomerular Filtration Rate Calc 62 >90 mL/min BUN/Creatinine Ratio 10.9 10.0-20.0 Serum Glucose 185 H 74-106 mg/dL Hemoglobin A1c 6.2 H <5.7 % A1C Calcium Level 9.2 8.7-10.4 mg/dL Magnesium Level 1.9 1.6-2.6 mg/dL Total Bilirubin 0.2 0.2-1.0 mg/dL Aspartate Amino Transferase (AST) 13 13-40 U/L Alanine Aminotransferase (ALT) 18 7-40 U/L Alkaline Phosphatase 115 46-116 U/L B-Type Natriuretic Peptide 439.38 0-100 pg/mL Total Protein 6.5 5.7-8.2 g/dL Thyroid Stimulating Hormone (TSH) 1.28 0.55-4.78 uIU/mL Blood Gas Specimen Type Arterial Blood Gas Sample Site Right radial Blood Gas Patient Temperature 37.0 Arterial Blood Date Drawn [id number] Arterial Blood pH 7.313 L 7.350-7.450 Arterial Blood Partial Pressure CO2 40.2 32.0-45.0 mmHg Arterial Blood Partial Pressure O2 195.3 H 83.0-108.0 mmHg Arterial Blood HCO3 19.9 L 21.0-28.0 mmol/L Arterial Blood Oxygen Saturation 99.4 H 94.0-98.0 % Arterial Blood Base Excess -5.9 L -2.0-3.0 mmol/L Arterial Blood Oxyhemoglobin 98.5 H 94.0-98.0 % Arterial Blood Carboxyhemoglobin 0.3 L 0.5-1.5 % Arterial Blood Methemoglobin 0.6 0.0-1.5 % Naag Test Yes Blood Gas Total Hemoglobin 12.40 12.0-16.0 g/dL Blood Gas Modality Mask - bipap Blood Gas Spontaneous Rate 27 FiO2 % 100.0 Blood Gas EPAP 6 Blood Gas IPAP 12 Assessment Rule out structural heart disease Hypertension Pneumonia Prediabetes Bilateral pleural effusion COPD with home O2 as needed Osteoporosis Anxiety History of tobacco use Plan/Recommendation We will continue with the following plan/recommendations (Dr. Gould): * Echocardiogram to evaluate cardiac function * Diuresis as tolerated * BP control * Antibiotics per primary care Case discussed with . Thank you for allowing us to care for this patient. Please call with any questions or concerns. Critical care time spent: 41 minutes This medical document was created using an electronic medical record system with voice recognition software and computerized dictation system. Although this document has been carefully reviewed, there might still be some phonetic and typographical errors. Occasional wrong-word or ``sound-alike substitutions may have occurred due to the inherent limitations of voice recognition software. These areas are purely typographical due to imperfections of the software p rograms and do not reflect any compromise in the patient's medical care. Please read the chart carefully and recognize, using context, where these substitutions have occurred. Plan discussed with: Patient NYHA Physical activity limitations: NA Date of Service: Feb 14, 2024 Billing Provider: TAY GLYNN Cardiology Common Codes: 56812-YJPNPJS INP/OBS CARE (High) Cardiology Consultation Codes: 23613-[id number] CONSULT <45MIN TAY GLYNN Feb 14, 2024 10:09
[2024-02-14] MEDS: ENOXAPARIN SOD 40 MG/0.4 ML SYRINGE SC SCH (10:46)
[2024-02-14] MEDS: FAMOTIDINE (10MG/ML) 2ML VL IV SCH (10:46)
[2024-02-14] MEDS: LOSARTAN POTASSIUM 25 MG TAB PO SCH (10:47)
[2024-02-14] MEDS: ASPirin 81 mg TAB PO SCH (10:47)
[2024-02-14] MEDS: SPIRONOLACTONE 25 MG TAB PO SCH (10:48)
[2024-02-14] MEDS: EMPAGLIFLOZIN 10 MG TAB PO SCH (10:48)
[2024-02-14] MEDS: METOPROLOL TARTRATE 25 MG TAB PO SCH (10:52)
[2024-02-14 11:28] LABS: Lactic Acid w/Reflex 4.5 mmol/L (0.4-2.0)
[2024-02-14] MEDS: LORazepam 2MG/ML-1ML VIAL IV ONE ×2 (11:44→21:02)
[2024-02-14] MEDS: ALBUTEROL SULF 2.5 MG/0.5ML(0.5%) NEB SOLN NEB SCH (12:48)
[2024-02-14] MEDS: IPRATROPIUM BROM 0.5 MG/2.5ML INH SOL NEB SCH (12:49)
[2024-02-14] MEDS: BUDESONIDE (INHALATION) 0.5 MG/2 ML NEB NEB SCH (12:49)
[2024-02-14] MEDS ORDERED: methylPREDNISolone SOD SUCC 40 MG/ML VL IV SCH (14:00)
[2024-02-14 14:32] LABS: Urine Bacteria None Seen /hpf (None Seen)
[2024-02-14 14:52] LABS: Urine Blood Negative /uL (Negative); Urine Clarity Clear (Clear); Urine Color Light-Yellow (Yellow); Urine Mucus FEW (None Seen); Urine Protein, UAD 1+ (Negative); Urine Specific Gravity 1.015 (1.001-1.035); Urine Squamous Epithelial Cell FEW /hpf (<5); Urine Urobilinogen Normal (Negative); Urine WBC 3 /hpf (0 - 5); Urine pH 6.5 (5.0-9.0)
--- NOTE | 2024-02-14 16:18 | DVHPN2 ---
Subjective Patient was states that her shortness of breath has improved Reviewed: Care Plan, H&P, Labs, Medications Changes from previous H/P or p: No Changes General: Per HPI Eyes: No Pain, No Vision change, No Conjunctivae inflammation, No Eyelid inflammation, No Other, No Redness ENT: No Ear pain, No Ear discharge, No Nose pain, No Nose discharge, No Nose congestion, No Mouth pain, No Mouth swelling, No Throat pain, No Throat swelling, No Other Cardiovascular: No Chest Pain, No Palpitations, No Orthopnea, No Paroxysmal Noc. Dyspnea, No Edema, No Lt Headedness; Other (Chest tightness) Respiratory: No Cough, No Dry; Shortness of breath; No SOB with excertion, No Wheezing, No Hemoptysis, No Pleuritic Pain, No Sputum, No Other Gastrointestinal: No Nausea, No Vomiting, No Abdominal Pain, No Diarrhea, No Constipation, No Melena, No Hematochezia, No Other Genitourinary: No Dysuria, No Frequency, No Incontinence, No Hematuria, No Retention, No Other Musculoskeletal: No other, No neck pain, No shoulder pain, No arm pain, No back pain, No hand pain, No leg pain, No foot pain Skin: No Rash, No Lesions, No Jaundice, No Bruising, No Other Objective Vitals Vital Signs Date Time Temp Pulse Resp B/P (MAP) Pulse Ox O2 Delivery O2 Flow Rate FiO2 02/14/24 15:00 74 20 114/54 (74) 94 02/14/24 12:48 Bi-Pap+ 35 35 02/14/24 07:30 98.3 98.3 Intake/Output Intake and Output 02/14/24 07:00 Intake Total 50 ml Balance 50 ml Intake IV Total 50 ml General Appearance: Alert, Oriented X3, Cooperative, mild distress HEENT: Atraumatic, PERRLA, EOMI Lungs: Clear to auscultation, Normal air movement Cardiovascular: Normal S1, Normal S2 Abdomen: Normal bowel sounds, Soft, No tenderness, No hepatospenomegaly Musculoskeletal: Normal sensory function, Normal motor function Neuro: Normal gait, Normal speech Psych/Mental Status: Mental status NL, Mood NL Medications Current Medications Medications Dose Ordered Sig/Bria Route Start Time Stop Time Status Last Admin Dose Admin Acetaminophen/ Hydrocodone Bitart 1 tab Q4HP PRN PO 02/14/24 06:30 Ondansetron HCl 4 mg Q4HP PRN IV 02/14/24 06:30 Enoxaparin Sodium 40 mg DAILY SC 02/14/24 10:00 02/14/24 10:46 40 MG Acetaminophen 650 mg Q6HP PRN PO 02/14/24 06:30 Morphine Sulfate 2 mg Q4HPRN PRN IV 02/14/24 06:30 Nitroglycerin 0.4 mg Q5MINP PRN SL 02/14/24 06:30 Morphine Sulfate 2 mg Q30M PRN IV 02/14/24 06:30 Diagnostic Test (Pha) 1 strip ACHS 02/14/24 07:00 02/14/24 11:38 1 STRIP Insulin Human Regular ACHS SC 02/14/24 07:00 02/14/24 11:44 3 UNITS Dextrose 50 ml UD PRN IV 02/14/24 06:30 Ceftriaxone Sodium 50 ml @ 100 mls/hr DAILY@09 IV 02/15/24 09:00 Azithromycin 250 ml @ 125 mls/hr DAILY IV 02/15/24 10:00 Albuterol 2.5 mg Q6HWA NEB 02/14/24 12:00 02/14/24 12:48 2.5 MG Albuterol 2.5 mg Q4HPRN PRN NEB 02/14/24 06:30 Ipratropium [place] 0.5 mg Q6HWA NEB 02/14/24 12:00 02/14/24 12:49 0.5 MG Ipratropium [place] 0.5 mg Q4HPRN PRN NEB 02/14/24 06:30 Budesonide 0.5 mg BID NEB 02/14/24 10:00 02/14/24 12:49 0.5 MG Famotidine 20 mg DAILY IV 02/14/24 10:00 02/14/24 10:46 20 MG Aspirin 81 mg DAILY PO 02/14/24 10:00 02/14/24 10:47 81 MG Atorvastatin Calcium 40 mg HS PO 02/14/24 22:00 Metoprolol Tartrate 12.5 mg BID PO 02/14/24 10:00 02/14/24 10:52 12.5 MG Losartan Potassium 12.5 mg DAILY PO 02/14/24 10:00 02/14/24 10:47 12.5 MG Empaglifozin 10 mg DAILY PO 02/14/24 10:00 02/14/24 10:48 10 MG Spironolactone 25 mg DAILY PO 02/14/24 10:00 02/14/24 10:48 25 MG Furosemide 20 mg DAILY IV 02/15/24 10:00 Laboratory Results Laboratory Tests 02/14/24 04:04 Chemistry Test 02/14/24 04:04 02/14/24 07:45 Albumin 4.0 g/dL (3.2-4.8) 4.0 g/dL (3.2-4.8) Calcium Level 9.2 mg/dL (8.7-10.4) Magnesium Level 1.9 mg/dL (1.6-2.6) Total Protein 6.5 g/dL (5.7-8.2) Coagulation Test 02/14/24 04:04 Prothrombin Time 11.1 sec (9.3-11.8) Prothrombin Time INR 1.05 (0.9-1.15) Activated Partial Thromboplast Time 20.0 SEC (24.5-34.5) L Cardiac Markers Test 02/14/24 04:04 B-Type Natriuretic Peptide 439.38 pg/mL (0-100) LFT Test 02/14/24 04:04 Alanine Aminotransferase (ALT) 18 U/L (7-40) Alkaline Phosphatase 115 U/L (46-116) Aspartate Amino Transferase (AST) 13 U/L (13-40) Total Bilirubin 0.2 mg/dL (0.2-1.0) HgA1c, TSH Test 02/14/24 04:04 Hemoglobin A1c 6.2 % A1C (<5.7) H Thyroid Stimulating Hormone (TSH) 1.28 uIU/mL (0.55-4.78) Urinalysis Test 02/14/24 14:32 Urine Color Light-yellow (Yellow) Urine Clarity Clear (Clear) Urine pH 6.5 (5.0-9.0) Urine Specific [place] 1.015 (1.001-1.035) Urine Protein 1+ (Negative) H Urine Ketones Negative (Negative) Urine Blood Negative /uL (Negative) Urine Nitrite Negative (Negative) Urine Bilirubin Negative (Negative) Urine Urobilinogen Normal mg/dL (Negative) Urine Leukocyte Esterase Negative /uL (Negative) Urine RBC 1 /hpf (0 - 4) Urine WBC 3 /hpf (0 - 5) Urine Squamous Epithelial Cells Few /hpf (<5) Urine Bacteria None seen /hpf (None Seen) Urine Mucus Few (None Seen) Urine Glucose 4+ mg/dL (Normal) H Blood Gas Results Test 02/14/24 03:38 Arterial Blood pH 7.313 (7.350-7.450) FiO2 % 100.0 Labs and/or images reviewed: Labs reviewed by me, Image(s) reviewed by me Assessment/Plan Assessment/Plan Impression: -acute hypoxic respiratory failure -acute decompensated systolic heart failure -leukocytosis, rule out sepsis -hypothyroidism -dyslipidemia -primary hypertension Plan: -patient now on high-flow nasal cannula at 40% FiO2. Dyspnea has improved dramatically. -cardiology consultation: Echocardiogram pending with preliminary ejection fraction 30% -IV diuresis -continue goal-directed medical therapy -blood and sputum culture -repeat labs and chest x-ray in am Critical care time spent with patient discussing and formulating plan of care: 40 minutes. This does not include time spent performing procedures. This medical document was created using an electronic medical record system with [employer] dictation system. Although this document has been carefully reviewed, there may still be some phonetic and typographical errors. These areas are purely typographical due to imperfections of the software programs, and do not reflect any compromise in the patient's medical care. Plan discussed with: Patient, Other (RN) My Orders Orders - WILMAR MENDES NP Procedure Category Date Status Time Furosemide Injection PHA 02/15/24 In Process (Lasix Injection) 10:00 Chest Portable XY 02/15/24 Logged 04:00 Respiratory Culture HILDA 02/14/24 Transmitted W/ Gs 16:13 Date of Service: Feb 14, 2024 Billing Provider: WILMAR MENDES NP Common Visit Codes: [id number] CARE 30-74 MIN WILMAR MENDES NP Feb 14, 2024 16:18
--- NOTE | 2024-02-14 17:14 | DVHSR ---
APPROVED REPORT EXAM: Two-dimensional and M-mode echocardiogram with Doppler and color Doppler. Blood Pressure: 120/38 mmHg INDICATION SOB RISK FACTORS Height: 61, Weight: 150 DIMENSIONS LVDd5.1 (3.8-5.7cm)LA (2D)4.1 (1.9-4.0cm)Aortic Root3.0 (2.0-3.7cm) LVDs4.4 (2.5-4.0cm)LA (MM) (1.9-4.0cm)Aortic Cusp Exc1.4 (1.5-2.0cm) EF (%) 30.0 (55-70%)Rt. Atrium3.7 (1.9-4.0cm)Asc. Aorta cm IVSd1.0 (0.7-1.1cm)RV (D) (1.8-2.4cm) PWd1.1 (0.7-1.1cm) Mitral Valve MitralMitral Stenosis E wave1.25m/sMV Mean GR.4mmHg A wave1.18m/sMV Peak GR.99mmHg E/A ratio1.12D MVAcm2 DECEL [id number] 1/2 [place] Aortic Valve Aortic ValveAortic Stenosis V11.22m/Annabelle Mean GR.9mmHg V22.18m/Annabelle Peak GR.19mmHg LVOT Diameter2.0 (1.8-2.4cm)Doppler AVA1.76cm2 AI P 1/2 Fryg666.49ms Pulmonic Valve V20.94m/s Tricuspid Valve TR Velocity3.03m/s [id number] Conclusion lvef 30% by visual estimate moderate to severe mitral regurg dilated left atrium normal rv function
[2024-02-14] MEDS: HYDROcodone-ACET 5/325MG TAB PO PRN (21:15)
[2024-02-14] MEDS: ATORVASTATIN 20 MG TAB PO SCH (22:36)
[2024-02-15] VITALS (46 sets, daily range): BP systolic 98–133; BP diastolic 38–69; PULSE 57–87; RESP 12–31; TEMP 97.6–98; O2SAT 94–100
[2024-02-15] MEDS: MORPHINE SULFATE INJ 2 MG/ml SYRG IV PRN (02:56)
--- NOTE | 2024-02-15 04:47 | DVH ---
CHEST RADIOGRAPH Indication: chf Technique: Single frontal view of the chest was obtained Comparison: XY CHEST PORTABLE on DOS: 02/14/24 FINDINGS: Lines and Tubes: None Lungs: There is pulmonary vascular congestion. Pleura: No effusion. No pneumothorax. Cardiomediastinal contours: Stable. Bones: No acute osseous abnormality. IMPRESSION: 1. Pulmonary vascular congestion similar to prior study.
[2024-02-15 05:12] LABS: Basophils # (auto) 0 10 ^3/uL (0-0.2); Basophils % (auto) 0.1 % (0.0-2.0); Eosinophils # (auto) 0 10 ^3/uL (0-0.8); Mean Corpuscular Volume 80.1 fL (80.0-100.0); Monocytes # (auto) 0.7 10 ^3/uL (0-1.3); Neutrophils % (auto) 87.3 % (37.0-80.0)
[2024-02-15 05:15] LABS: Hematocrit 30.5 % (36.0-46.0); Lymphocytes % (auto) 7.3 % (10.0-50.0); Mean Corpuscular Hemoglobin 26.2 pg (28.0-32.0); Mean Corpuscular Hgb Conc. 32.7 g/dL (32.0-36.0); Monocytes % (auto) 5.3 % (0.0-12.0); Neutrophils # (auto) 11.5 10 ^3/uL (1.6-8.6); Platelet Count (auto) 394 10^3/uL (140-450); Red Blood Cells 3.81 10^6/uL (4.0-5.20); Red Cell Distribution Width 15.3 % (11.8-14.3); White Blood Cell 13.2 10^3/uL (4.4-10.8)
[2024-02-15 05:19] LABS: Alanine Aminotransferase 31 U/L (7-40); Albumin 3.8 g/dL (3.2-4.8); Alkaline Phosphatase 116 U/L (46-116); Anion Gap 6 (5-15); Aspartate Aminotransferase 23 U/L (13-40); BUN/Creatinine Ratio 20.3 (10.0-20.0); Blood Urea Nitrogen 16 mg/dL (9-23); Calcium 9.1 mg/dL (8.7-10.4); Carbon Dioxide 23 mmol/L (20-31); Chloride 107 mmol/L (98-107); Potassium 4.4 mmol/L (3.5-5.1); Sodium 136 mmol/L (136-145)
[2024-02-15 05:27] LABS: Bilirubin, Total 0.3 mg/dL (0.2-1.0); Glucose 122 mg/dL (74-106)
[2024-02-15] MEDS: ONDANSETRON HCL 4 MG/2 ML VIAL IV PRN (08:23)
[2024-02-15] MEDS ORDERED: HEPARIN SODIUM (PORCINE) 5000 UNITS/ML 1ML VIAL IV ONE (08:45)
[2024-02-15] MEDS ORDERED: HEPARIN DRIP/D5W 100UNITS/ML 250 ML IV SCH (08:45)
[2024-02-15] MEDS: HEPARIN SODIUM (PORCINE) 5000 UNITS/ML 1ML VIAL ONE ×2 (08:59→09:54)
[2024-02-15] MEDS: ASPirin 325 MG TAB PO ONE (09:01)
[2024-02-15] MEDS: cefTRIAXone 1GM/50ML D5W 50 ML IV SCH (09:02)
[2024-02-15] MEDS: NITROGLYCERIN 0.2MG/HR TOPICAL PATCH TD ONE (09:05)
--- NOTE | 2024-02-15 09:12 | DVHPN2 ---
Subjective Patient was found to be in 10/10 chest pain, left side of her chest radiating to her back. Patient was currently tachypneic and on BiPAP. Reviewed: Care Plan, H&P, Labs, Medications Changes from previous H/P or p: No Changes General: Per HPI Eyes: No Pain, No Vision change, No Conjunctivae inflammation, No Eyelid inflammation, No Other, No Redness ENT: No Ear pain, No Ear discharge, No Nose pain, No Nose discharge, No Nose congestion, No Mouth pain, No Mouth swelling, No Throat pain, No Throat swelling, No Other Cardiovascular: No Chest Pain, No Palpitations, No Orthopnea, No Paroxysmal Noc. Dyspnea, No Edema, No Lt Headedness; Other (Chest tightness) Respiratory: No Cough, No Dry; Shortness of breath; No SOB with excertion, No Wheezing, No Hemoptysis, No Pleuritic Pain, No Sputum, No Other Gastrointestinal: No Nausea, No Vomiting, No Abdominal Pain, No Diarrhea, No Constipation, No Melena, No Hematochezia, No Other Genitourinary: No Dysuria, No Frequency, No Incontinence, No Hematuria, No Retention, No Other Musculoskeletal: No other, No neck pain, No shoulder pain, No arm pain, No back pain, No hand pain, No leg pain, No foot pain Skin: No Rash, No Lesions, No Jaundice, No Bruising, No Other Objective Vitals Vital Signs Date Time Temp Pulse Resp B/P (MAP) Pulse Ox O2 Delivery O2 Flow Rate FiO2 02/15/24 09:05 123/51 02/15/24 08:57 66 18 02/15/24 07:39 96 Facial BiPAP Mask 35 02/15/24 07:30 98.0 98.0 02/14/24 13:19 50.0 Intake/Output Intake and Output 02/15/24 07:00 Intake Total 932.5 ml Output Total 800 ml Balance 132.5 ml Intake Oral 300 ml IV Total 632.5 ml Output Urine Total 800 ml General Appearance: Alert, Oriented X3, Cooperative, mild distress HEENT: Atraumatic, PERRLA, EOMI Lungs: Clear to auscultation, Normal air movement Cardiovascular: Normal S1, Normal S2 Abdomen: Normal bowel sounds, Soft, No tenderness, No hepatospenomegaly Musculoskeletal: Normal sensory function, Normal motor function Neuro: Normal gait, Normal speech Psych/Mental Status: Mental status NL, Mood NL Medications Current Medications Medications Dose Ordered Sig/Bria Route Start Time Stop Time Status Last Admin Dose Admin Acetaminophen/ Hydrocodone Bitart 1 tab Q4HP PRN PO 02/14/24 06:30 02/14/24 21:15 Ondansetron HCl 4 mg Q4HP PRN IV 02/14/24 06:30 02/15/24 08:23 Enoxaparin Sodium 40 mg DAILY SC 02/14/24 10:00 02/14/24 10:46 Acetaminophen 650 mg Q6HP PRN PO 02/14/24 06:30 Morphine Sulfate 2 mg Q4HPRN PRN IV 02/14/24 06:30 02/15/24 08:24 Nitroglycerin 0.4 mg Q5MINP PRN SL 02/14/24 06:30 Morphine Sulfate 2 mg Q30M PRN IV 02/14/24 06:30 Diagnostic Test (Pha) 1 strip ACHS 02/14/24 07:00 02/15/24 06:33 Insulin Human Regular ACHS SC 02/14/24 07:00 02/14/24 22:43 Dextrose 50 ml UD PRN IV 02/14/24 06:30 Ceftriaxone Sodium 50 ml @ 100 mls/hr DAILY@09 IV 02/15/24 09:00 02/15/24 09:02 Azithromycin 250 ml @ 125 mls/hr DAILY IV 02/15/24 10:00 Albuterol 2.5 mg Q6HWA NEB 02/14/24 12:00 02/15/24 06:14 Albuterol 2.5 mg Q4HPRN PRN NEB 02/14/24 06:30 Ipratropium [place] 0.5 mg Q6HWA NEB 02/14/24 12:00 02/15/24 06:14 Ipratropium [place] 0.5 mg Q4HPRN PRN NEB 02/14/24 06:30 Budesonide 0.5 mg BID NEB 02/14/24 10:00 02/15/24 06:14 Famotidine 20 mg DAILY IV 02/14/24 10:00 02/14/24 10:46 Aspirin 81 mg DAILY PO 02/14/24 10:00 02/14/24 10:47 Atorvastatin Calcium 40 mg HS PO 02/14/24 22:00 02/14/24 22:36 Metoprolol Tartrate 12.5 mg BID PO 02/14/24 10:00 02/14/24 22:38 Losartan Potassium 12.5 mg DAILY PO 02/14/24 10:00 02/14/24 10:47 Empaglifozin 10 mg DAILY PO 02/14/24 10:00 02/14/24 10:48 Spironolactone 25 mg DAILY PO 02/14/24 10:00 02/14/24 10:48 Furosemide 20 mg DAILY IV 02/15/24 10:00 Heparin Sodium/ Dextrose 250 ml @ 8.172 mls/ hr Q24H IV 02/15/24 08:45 UNV Laboratory Results Laboratory Tests 02/15/24 03:50 Chemistry Test 02/15/24 03:50 Albumin 3.8 g/dL (3.2-4.8) Calcium Level 9.1 mg/dL (8.7-10.4) Total Protein 6.0 g/dL (5.7-8.2) LFT Test 02/15/24 03:50 Alanine Aminotransferase (ALT) 31 U/L (7-40) Alkaline Phosphatase 116 U/L (46-116) Aspartate Amino Transferase (AST) 23 U/L (13-40) Total Bilirubin 0.3 mg/dL (0.2-1.0) Urinalysis Test 02/14/24 14:32 Urine Color Light-yellow (Yellow) Urine Clarity Clear (Clear) Urine pH 6.5 (5.0-9.0) Urine Specific [place] 1.015 (1.001-1.035) Urine Protein 1+ (Negative) H Urine Ketones Negative (Negative) Urine Blood Negative /uL (Negative) Urine Nitrite Negative (Negative) Urine Bilirubin Negative (Negative) Urine Urobilinogen Normal mg/dL (Negative) Urine Leukocyte Esterase Negative /uL (Negative) Urine RBC 1 /hpf (0 - 4) Urine WBC 3 /hpf (0 - 5) Urine Squamous Epithelial Cells Few /hpf (<5) Urine Bacteria None seen /hpf (None Seen) Urine Mucus Few (None Seen) Urine Glucose 4+ mg/dL (Normal) H Labs and/or images reviewed: Labs reviewed by me, Image(s) reviewed by me Assessment/Plan Assessment/Plan Impression: -acute hypoxic respiratory failure -acute decompensated systolic heart failure -leukocytosis, rule out sepsis -hypothyroidism -dyslipidemia -primary hypertension -acute coronary syndrome Plan: -events: Patient has acute change in clinical status including severe chest pain, ST depression in V2 through five, with noted well in sign. Patient also has 10/10 chest pain, located in the left aspect of her chest radiating to her back. Patient was also tachypneic. Repeat troponin this a.m. is currently pending. I, myself called the Cardiology regarding acute changes in EKG as well as clinical presentation. -heparin bolus 4000 units followed by heparin drip -loading dose of aspirin 325 mg -nitro patch 0.2 x 1. -cardiology consultation: Recommendations appreciated -IV diuresis -continue goal-directed medical therapy -blood and sputum culture -repeat labs and chest x-ray in am -patient was daughter was bedside. Plan of care discussed. Critical care time spent with patient discussing and formulating plan of care: 90 minutes. This does not include time spent performing procedures. This medical document was created using an electronic medical record system with [employer] dictation system. Although this document has been carefully reviewed, there may still be some phonetic and typographical errors. These areas are purely typographical due to imperfections of the software programs, and do not reflect any compromise in the patient's medical care. Plan discussed with: Patient, Daughter, Other (RN, Cardiology [employer] Belgica Reyna) My Orders Orders - WILMAR MENDES [employer] Procedure Category Date Status Time Furosemide Injection PHA 02/15/24 In Process (Lasix Injection) 10:00 Chest Portable XY 02/15/24 Resulted 04:00 Respiratory Culture HILDA 02/14/24 Logged W/ Gs 16:13 Heparin Sodium PHA 02/15/24 Logged (Porcine) 08:45 Platelet Monitoring IVORY 02/15/24 In Process 08:45 Heparin Per IVORY 02/15/24 In Process Standardized Proce 08:45 Discontinue All Im IVORY 02/15/24 In Process Injections 08:45 PTPTT LAB 02/15/24 Logged 08:45 Complete Blood Count LAB 02/15/24 Logged 08:45 Heparin Drip/D5w PHA 02/15/24 Logged 100units/Ml 08:45 Type And Screen BBK 02/15/24 Logged 08:48 Date of Service: Feb 15, 2024 Billing Provider: WILMAR MENDSE NP Common Visit Codes: 89129-[id number] CARE 30-74 MIN, 55621-[id number] CARE-EACH +30MIN WILMAR MENDES NP Feb 15, 2024 09:12
--- NOTE | 2024-02-15 09:22 | DVHPN2 ---
Consult Progress Note Subjective Other Systems: Chest pain at time of assessment. Objective vital signs Vital Sign Date Time Temp Pulse Resp B/P (MAP) Pulse Ox O2 Delivery O2 Flow Rate FiO2 02/15/24 09:05 123/51 02/15/24 09:04 98.0 65 15 100 35 98.0 02/15/24 07:39 Facial BiPAP Mask 02/14/24 13:19 50.0 Total Intake and Output 02/14/24 02/14/24 02/15/24 15:00 23:00 07:00 Intake Total 632.5 ml 300 ml Output Total 800 ml Balance 632.5 ml -500 ml medications Current Medications Medications Dose Ordered Sig/Bria Route Start Time Stop Time Status Last Admin Dose Admin Acetaminophen/ Hydrocodone Bitart 1 tab Q4HP PRN PO 02/14/24 06:30 02/14/24 21:15 1 TAB Ondansetron HCl 4 mg Q4HP PRN IV 02/14/24 06:30 02/15/24 08:23 4 MG Enoxaparin Sodium 40 mg DAILY SC 02/14/24 10:00 02/14/24 10:46 40 MG Acetaminophen 650 mg Q6HP PRN PO 02/14/24 06:30 Morphine Sulfate 2 mg Q4HPRN PRN IV 02/14/24 06:30 02/15/24 08:24 2 MG Nitroglycerin 0.4 mg Q5MINP PRN SL 02/14/24 06:30 Morphine Sulfate 2 mg Q30M PRN IV 02/14/24 06:30 Diagnostic Test (Pha) 1 strip ACHS 02/14/24 07:00 02/15/24 06:33 1 STRIP Insulin Human Regular ACHS SC 02/14/24 07:00 02/14/24 22:43 2 UNITS Dextrose 50 ml UD PRN IV 02/14/24 06:30 Ceftriaxone Sodium 50 ml @ 100 mls/hr DAILY@09 IV 02/15/24 09:00 02/15/24 09:02 100 MLS/HR Azithromycin 250 ml @ 125 mls/hr DAILY IV 02/15/24 10:00 Albuterol 2.5 mg Q6HWA NEB 02/14/24 12:00 02/15/24 06:14 2.5 MG Albuterol 2.5 mg Q4HPRN PRN NEB 02/14/24 06:30 Ipratropium [place] 0.5 mg Q6HWA NEB 02/14/24 12:00 02/15/24 06:14 0.5 MG Ipratropium [place] 0.5 mg Q4HPRN PRN NEB 02/14/24 06:30 Budesonide 0.5 mg BID NEB 02/14/24 10:00 02/15/24 06:14 0.5 MG Famotidine 20 mg DAILY IV 02/14/24 10:00 02/14/24 10:46 20 MG Aspirin 81 mg DAILY PO 02/14/24 10:00 02/14/24 10:47 81 MG Atorvastatin Calcium 40 mg HS PO 02/14/24 22:00 02/14/24 22:36 40 MG Metoprolol Tartrate 12.5 mg BID PO 02/14/24 10:00 02/14/24 22:38 12.5 MG Losartan Potassium 12.5 mg DAILY PO 02/14/24 10:00 02/14/24 10:47 12.5 MG Empaglifozin 10 mg DAILY PO 02/14/24 10:00 02/14/24 10:48 10 MG Spironolactone 25 mg DAILY PO 02/14/24 10:00 02/14/24 10:48 25 MG Furosemide 20 mg DAILY IV 02/15/24 10:00 Heparin Sodium/ Dextrose 250 ml @ 8.172 mls/ hr Q24H IV 02/15/24 08:45 UNV Examination: GENERAL:Abnormal, LUNGS:Abnormal (Coarse throughout), CVS:Normal, NEURO:Normal laboratory and microbiology Laboratory Tests 02/15/24 03:50 Test 02/15/24 03:50 Range/Units Serum Glucose 122 H 74-106 mg/dL Problem List/Assessment/Plan Problem List/Assessment/Plan Chest pain, coronary artery disease ruled out Acute on chronic decompensated HFrEF, NYHA class IV Moderate to severe mitral valve regurgitation Hypertension Pneumonia Prediabetes Bilateral pleural effusion COPD with home O2 as needed Osteoporosis Anxiety History of tobacco use Plan/Recommendation (Dr. Hernandes): * Echocardiogram reveals EF 30% * Initiate GDMT for CHF as tolerated * Strict intake and output, daily weights, maintain fluid restriction * Diuresis as tolerated * BP control * Antibiotics per primary care Today, the patient began experiencing severe chest pain. A twelve lead electrocardiogram was done by the bedside RN and revealed depressed T-waves to anterolateral leads. It was discussed with the patient and her daughter at bedside that the patient may benefit from coronary angiogram with left heart catheterization. Procedure was discussed with the patient full detail including risks and benefits. Risks include but are not limited to bleeding, contrast induced nephropathy, stroke, and even . The patient was urgently taken to the microbiology laboratory manager. The patient underwent a coronary angiogram without catheter based intervention. We will recommend to continue guideline directed medical therapy for CHF, and diurese as tolerated. Thank you for allowing us to care for this patient. Please call with any questions or concerns. This medical document was created using an electronic medical record system with voice recognition software and computerized dictation system. Although this document has been carefully reviewed, there might still be some phonetic and typographical errors. Occasional wrong-word or ``sound-alike substitutions may have occurred due to the inherent limitations of voice recognition software. These areas are purely typographical due to imperfections of the software programs and do not reflect any compromise in the patient's medical care. Please read the chart carefully and recognize, using context, where these substitutions have occurred. Plan discussed with: Patient, Daughter Date of Service: Feb 15, 2024 Billing Provider: SAMANTHA HERNANDES MD Common Visit Codes: [id number] INP/OBS CARE(HIGH) TAY GLYNN Feb 15, 2024 09:22
[2024-02-15 09:28] LABS: Basophils # (auto) 0 10 ^3/uL (0-0.2); Eosinophils # (auto) 0 10 ^3/uL (0-0.8); Neutrophils # (auto) 12.5 10 ^3/uL (1.6-8.6)
[2024-02-15 09:31] LABS: Basophils % (auto) 0.1 % (0.0-2.0); Hematocrit 30.2 % (36.0-46.0); Lymphocytes # (auto) 1.3 10 ^3/uL (0.4-5.4); Lymphocytes % (auto) 8.9 % (10.0-50.0); Mean Corpuscular Hemoglobin 26.5 pg (28.0-32.0); Mean Corpuscular Hgb Conc. 33.2 g/dL (32.0-36.0); Monocytes # (auto) 0.9 10 ^3/uL (0-1.3); Platelet Count (auto) 423 10^3/uL (140-450); Red Blood Cells 3.78 10^6/uL (4.0-5.20); Red Cell Distribution Width 15.2 % (11.8-14.3); White Blood Cell 14.7 10^3/uL (4.4-10.8)
[2024-02-15] MEDS: VERAPAMIL 2.5MG/ML INJ 2ML VIAL IV ONE (09:54)
[2024-02-15] MEDS: fentaNYL CITRATE 100 MCG/2 ML VL ONE (09:54)
[2024-02-15] MEDS: MIDAZOLAM HCL 2MG/2ML 2ml VIAL (1mg/ml) ONE (09:54)
[2024-02-15] MEDS: ANGIOMAX 250 MG VIAL IV ONE (09:54)
[2024-02-15] MEDS: LIDOCAINE 2%HCL (LOCAL ANESTH.) INJ 20ML MDV ONE (09:55)
[2024-02-15 09:56] LABS: INR 1.12 (0.9-1.15); Prothrombin Time 11.8 sec (9.3-11.8)
[2024-02-15 09:59] LABS: Partial Thromboplastin Time 106.3 SEC (24.5-34.5)
[2024-02-15] MEDS: HEPARIN IN NS 1000Units/500mL 1,500 ML ONE (10:28)
[2024-02-15] MEDS: IODIXANOL 320MG/ML 100ML BTL IV ONE (10:28)
--- NOTE | 2024-02-15 10:44 | DVHOP2 ---
Operative Report - 2 Report Details Date: 02/15/24 Preop Diagnosis: Patient presented with shortness of breath. She has been diagnosed with acute hypoxic respiratory failure. She has been having recurrent episodes of chest pain with elevated troponin suggestive of non ST-elevation myocardial infarction. Her EKG today did show new biphasic T-waves in anterolateral leads. She was taken urgently to the label machine operator for coronary angiography. Postop Diagnosis: 1. No significant angiographic coronary artery disease. 2. Moderately elevated left ventricular end-diastolic pressure. Surgeon: Samantha Hernandes MD Anesthesiologist: Patient was deemed an adequate candidate for conscious sedation. I was available for [id number] monitoring throughout the sedation time. Versed1 mg and [id number] mcg were given during the procedure. Anesthesia: Local Consent: The patient was informed of the risks and benefits of the procedure. These include but are not limited to complications of anesthesia, postoperative infection, incomplete relief of symptoms, recurrence of symptoms, damage to blood vessels, nerves and tendons, deep venous thrombosis, pulmonary embolism and possible need for repeat surgery in the future. Estimated Blood Loss: 10 cc. Name of Procedure Performed 1. Left heart catheterization. 2. Selective left and right coronary angiography. 3. Moderated sedation. Procedure Details Procedure Details: The patient was brought to the label machine operator urgently. She was found to have normal pulses in the right radial artery. The right wrist area was sterilized and draped in a sterile fashion. The skin was anesthetized using 1% lidocaine. Access in the right radial artery was obtained using a Seldinger approach. An 11 cm sheath was placed in the right radial artery. The left heart catheterization, left coronary angiography, and right coronary angiography were performed using a5 [place] tiger catheter. At the completion of the procedure hemostasis in radial artery was obtained using a TR band. Findings: Hemodynamics: Aortic pressure was 139/70 mm Hg, LVEDP was25 mm Hg. There is no significant gradient on LV to aorta pullback. Coronary angiography: The left main coronary artery is a normal caliber bifurcating vessel. It is free of any significant disease. The left anterior descending artery is normal caliber vessel that extends to the apex. No significant angiographic disease. The diagonal branches are with no significant disease. The left circumflex artery is a normal-caliber nondominant vessel. No significant disease. The obtuse marginal branch and left posterolateral branch are with no significant disease. The right coronary artery is a normal caliber and dominant vessel. No significant disease. RPDA and right posterolateral branches are with no significant disease. Impressions: 1. No significant angiographic coronary artery disease. 2. Moderately elevated left ventricular end-diastolic pressure. 3. Consider takotsubo cardiomyopathy. Plan: 1. Patient will be diuresed with IV Lasix. 2. Optimize medical therapy for cardiomyopathy. 3. Risk factors modifications. Condition Stable Disposition Still a Patient SAMANTHA HERNANEDS MD Feb 15, 2024 10:44
[2024-02-15] MEDS: FUROSEMIDE 20 MG/2 ML VIAL IV SCH (10:52)
[2024-02-15] MEDS: AZITHROMYCIN 500MG/ 250ML 250 ML IV SCH (11:25)
[2024-02-16] VITALS (35 sets, daily range): BP systolic 92–133; BP diastolic 29–61; PULSE 65–84; RESP 13–39; TEMP 97.5–98.6; O2SAT 92–100
[2024-02-16 03:47] LABS: Basophils # (auto) 0 10 ^3/uL (0-0.2); Eosinophils # (auto) 0 10 ^3/uL (0-0.8); Monocytes # (auto) 0.9 10 ^3/uL (0-1.3); Neutrophils # (auto) 10.6 10 ^3/uL (1.6-8.6); White Blood Cell 12.9 10^3/uL (4.4-10.8)
[2024-02-16 03:49] LABS: Basophils % (auto) 0.2 % (0.0-2.0); Eosinophils % (auto) 0.4 % (0.0-7.0); Hematocrit 31.5 % (36.0-46.0); Hemoglobin 10.4 g/dL (12.2-16.2); Lymphocytes # (auto) 1.3 10 ^3/uL (0.4-5.4); Lymphocytes % (auto) 10.5 % (10.0-50.0); Mean Corpuscular Hemoglobin 26.3 pg (28.0-32.0); Mean Corpuscular Volume 79.7 fL (80.0-100.0); Monocytes % (auto) 6.9 % (0.0-12.0); Platelet Count (auto) 394 10^3/uL (140-450); Red Blood Cells 3.96 10^6/uL (4.0-5.20); Red Cell Distribution Width 14.9 % (11.8-14.3)
[2024-02-16 04:03] LABS: Anion Gap 7 (5-15); Carbon Dioxide 26 mmol/L (20-31); Chloride 105 mmol/L (98-107); Sodium 138 mmol/L (136-145)
[2024-02-16 04:04] LABS: Calcium 9.4 mg/dL (8.7-10.4)
[2024-02-16 04:09] LABS: BUN/Creatinine Ratio 21.2 (10.0-20.0); Blood Urea Nitrogen 18 mg/dL (9-23)
[2024-02-16 04:18] LABS: Glucose 112 mg/dL (74-106)
[2024-02-16] MEDS: FUROSEMIDE 40 MG/4 ML VIAL ONE (06:26)
[2024-02-16] MEDS: methylPREDNISolone SOD SUCC 125 MG/2 ML VL ONE (06:26)
--- NOTE | 2024-02-16 06:27 | DVH ---
CHEST RADIOGRAPH Indication: LABORED BREATHING Technique: Single frontal view of the chest was obtained Comparison: XY CHEST PORTABLE on DOS: 02/15/24, XY CHEST PORTABLE on DOS: 02/14/24 FINDINGS: Lines and Tubes: None Lungs: Stable pulmonary congestion. Pleura: No effusion. No pneumothorax. Cardiomediastinal contours: Stable cardiovascular silhouette. Bones: No acute osseous abnormality. IMPRESSION: 1. Stable pulmonary congestion.
[2024-02-16] MEDS: methylPREDNISolone SOD SUCC 125 MG/2 ML VL IV ONE (06:30)
[2024-02-16] MEDS: FUROSEMIDE 40 MG/4 ML VIAL IV ONE (06:30)
--- NOTE | 2024-02-16 07:17 | ECG ---
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
--- NOTE | 2024-02-16 07:57 | DVHPN2 ---
Subjective Patient continues to report having shortness of breath. Reviewed: Care Plan, H&P, Labs, Medications Changes from previous H/P or p: Changes General: Per HPI Eyes: No Pain, No Vision change, No Conjunctivae inflammation, No Eyelid inflammation, No Other, No Redness ENT: No Ear pain, No Ear discharge, No Nose pain, No Nose discharge, No Nose congestion, No Mouth pain, No Mouth swelling, No Throat pain, No Throat swelling, No Other Cardiovascular: No Chest Pain, No Palpitations, No Orthopnea, No Paroxysmal Noc. Dyspnea, No Edema, No Lt Headedness; Other (Chest tightness) Respiratory: No Cough, No Dry; Shortness of breath; No SOB with excertion, No Wheezing, No Hemoptysis, No Pleuritic Pain, No Sputum, No Other Gastrointestinal: No Nausea, No Vomiting, No Abdominal Pain, No Diarrhea, No Constipation, No Melena, No Hematochezia, No Other Genitourinary: No Dysuria, No Frequency, No Incontinence, No Hematuria, No Retention, No Other Musculoskeletal: No other, No neck pain, No shoulder pain, No arm pain, No back pain, No hand pain, No leg pain, No foot pain Skin: No Rash, No Lesions, No Jaundice, No Bruising, No Other Objective Vitals Vital Signs Date Time Temp Pulse Resp B/P (MAP) Pulse Ox O2 Delivery O2 Flow Rate FiO2 02/16/24 06:00 82 22 116/60 (78) 96 02/15/24 20:00 Oxymizer 8 35 35 02/15/24 10:20 97.6 97.6 Intake/Output Intake and Output 02/16/24 07:00 Intake Total 450 ml Output Total 2575 ml Balance -2125 ml Intake Oral 200 ml IV Total 250 ml Output Urine Total 2575 ml General Appearance: Alert, Oriented X3, Cooperative, mild distress HEENT: Atraumatic, PERRLA, EOMI Lungs: Clear to auscultation, Normal air movement Cardiovascular: Normal S1, Normal S2 Abdomen: Normal bowel sounds, Soft, No tenderness, No hepatospenomegaly Musculoskeletal: Normal sensory function, Normal motor function Neuro: Normal gait, Normal speech Psych/Mental Status: Mental status NL, Mood NL Medications Current Medications Medications Dose Ordered Sig/Bria Route Start Time Stop Time Status Last Admin Dose Admin Acetaminophen/ Hydrocodone Bitart 1 tab Q4HP PRN PO 02/14/24 06:30 02/16/24 05:50 1 TAB Ondansetron HCl 4 mg Q4HP PRN IV 02/14/24 06:30 02/15/24 08:23 4 MG Enoxaparin Sodium 40 mg DAILY SC 02/14/24 10:00 02/14/24 10:46 40 MG Acetaminophen 650 mg Q6HP PRN PO 02/14/24 06:30 Morphine Sulfate 2 mg Q4HPRN PRN IV 02/14/24 06:30 02/15/24 08:24 2 MG Nitroglycerin 0.4 mg Q5MINP PRN SL 02/14/24 06:30 Morphine Sulfate 2 mg Q30M PRN IV 02/14/24 06:30 Diagnostic Test (Pha) 1 strip ACHS 02/14/24 07:00 02/15/24 21:53 1 STRIP Insulin Human Regular ACHS SC 02/14/24 07:00 02/14/24 22:43 2 UNITS Dextrose 50 ml UD PRN IV 02/14/24 06:30 Ceftriaxone Sodium 50 ml @ 100 mls/hr DAILY@09 IV 02/15/24 09:00 02/15/24 09:02 100 MLS/HR Azithromycin 250 ml @ 125 mls/hr DAILY IV 02/15/24 10:00 02/15/24 11:25 125 MLS/HR Albuterol 2.5 mg Q6HWA NEB 02/14/24 12:00 02/15/24 18:55 2.5 MG Albuterol 2.5 mg Q4HPRN PRN NEB 02/14/24 06:30 Ipratropium [place] 0.5 mg Q6HWA NEB 02/14/24 12:00 02/15/24 18:55 0.5 MG Ipratropium [place] 0.5 mg Q4HPRN PRN NEB 02/14/24 06:30 Budesonide 0.5 mg BID NEB 02/14/24 10:00 02/15/24 18:58 0.5 MG Famotidine 20 mg DAILY IV 02/14/24 10:00 02/15/24 10:47 20 MG Aspirin 81 mg DAILY PO 02/14/24 10:00 02/15/24 10:49 81 MG Atorvastatin Calcium 40 mg HS PO 02/14/24 22:00 02/15/24 21:52 40 MG Metoprolol Tartrate 12.5 mg BID PO 02/14/24 10:00 02/15/24 21:53 12.5 MG Losartan Potassium 12.5 mg DAILY PO 02/14/24 10:00 02/15/24 10:49 12.5 MG Empaglifozin 10 mg DAILY PO 02/14/24 10:00 02/15/24 10:49 10 MG Spironolactone 25 mg DAILY PO 02/14/24 10:00 02/15/24 10:49 25 MG Furosemide 100 mg/ Sodium Chloride 110 ml @ 11 mls/hr Q10H IV 02/16/24 07:45 Laboratory Results Laboratory Tests 02/16/24 03:15 Chemistry Test 02/16/24 03:15 Calcium Level 9.4 mg/dL (8.7-10.4) Coagulation Test 02/15/24 09:03 Prothrombin Time 11.8 sec (9.3-11.8) Prothrombin Time INR 1.12 (0.9-1.15) Activated Partial Thromboplast Time 106.3 SEC (24.5-34.5) *H Urinalysis Test 02/14/24 14:32 Urine Color Light-yellow (Yellow) Urine Clarity Clear (Clear) Urine pH 6.5 (5.0-9.0) Urine Specific [place] 1.015 (1.001-1.035) Urine Protein 1+ (Negative) H Urine Ketones Negative (Negative) Urine Blood Negative /uL (Negative) Urine Nitrite Negative (Negative) Urine Bilirubin Negative (Negative) Urine Urobilinogen Normal mg/dL (Negative) Urine Leukocyte Esterase Negative /uL (Negative) Urine RBC 1 /hpf (0 - 4) Urine WBC 3 /hpf (0 - 5) Urine Squamous Epithelial Cells Few /hpf (<5) Urine Bacteria None seen /hpf (None Seen) Urine Mucus Few (None Seen) Urine Glucose 4+ mg/dL (Normal) H Blood Gas Results Test 02/16/24 05:55 Arterial Blood pH 7.385 (7.350-7.450) FiO2 % 64.0 Microbiology Microbiology Date/Time Source Procedure Growth Status 02/14/24 13:45 Blood Blood Culture - Preliminary NO GROWTH AFTER 24 HOURS OF INCUBATION. Resulted Labs and/or images reviewed: Labs reviewed by me, Image(s) reviewed by me Assessment/Plan Assessment/Plan Impression: -acute hypoxic respiratory failure -acute decompensated systolic heart failure -leukocytosis, rule out sepsis -hypothyroidism -dyslipidemia -primary hypertension -acute coronary syndrome Plan: -events: Patient went for left heart catheterization yesterday morning. No CAD found amenable for intervention. 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 Worsening dyspnea overnight with the patient placed back on BiPAP. Chest x-ray reveals pulmonary vascular congestion. -start Lasix drip -serial K and Mag with replete as needed -cardiology consultation: Recommendations reviewed -continue goal-directed medical therapy -blood and sputum culture -repeat labs and chest x-ray in am -patient was daughter was bedside. Plan of care discussed. Critical care time spent with patient discussing and formulating plan of care: 40 minutes. This does not include time spent performing procedures. This medical document was created using an electronic medical record system with [employer] dictation system. Although this document has been carefully reviewed, there may still be some phonetic and typographical errors. These areas are purely typographical due to imperfections of the software programs, and do not reflect any compromise in the patient's medical care. Plan discussed with: Patient, Other (RN) My Orders Orders - WILMAR MENDES NP Procedure Category Date Status Time Platelet Monitoring IVORY 02/15/24 In Process 08:45 Heparin Per IVORY 02/15/24 In Process Standardized Proce 08:45 Discontinue All Im IVORY 02/15/24 In Process Injections 08:45 Mrsa Screen HILDA 02/15/24 In Process 19:57 Chest Portable XY 02/16/24 Resulted 05:43 Abg W/ Co-Ox RT 02/16/24 Logged 05:43 Sodium Chl 0.9% PHA 02/16/24 In Process (So... W/Furosemide 07:45 Potassium LAB 02/16/24 Logged 12:00 Potassium LAB 02/16/24 Logged 18:00 Potassium LAB 02/17/24 Verified 00:00 Potassium LAB 02/17/24 Verified 06:00 Potassium LAB 02/17/24 Verified 12:00 Potassium LAB 02/17/24 Verified 18:00 Potassium LAB 02/18/24 Verified 00:00 Potassium LAB 02/18/24 Verified 06:00 Magnesium LAB 02/16/24 Logged 07:40 Magnesium LAB 02/16/24 Logged 12:00 Magnesium LAB 02/16/24 Logged 18:00 Magnesium LAB 02/17/24 Verified 00:00 Magnesium LAB 02/17/24 Verified 06:00 Magnesium LAB 02/17/24 Verified 12:00 Magnesium LAB 02/17/24 Verified 18:00 Magnesium LAB 02/18/24 Verified 00:00 Magnesium LAB 02/18/24 Verified 06:00 Basic Metabolic Panel LAB 02/17/24 Verified 05:00 Basic Metabolic Panel LAB 02/18/24 Verified 05:00 Basic Metabolic Panel LAB 02/19/24 Verified 05:00 Basic Metabolic Panel LAB 02/20/24 Verified 05:00 Basic Metabolic Panel LAB 02/21/24 Verified 05:00 Basic Metabolic Panel LAB 02/22/24 Verified 05:00 Complete Blood Count LAB 02/17/24 Verified 05:00 Complete Blood Count LAB 02/18/24 Verified 05:00 Complete Blood Count LAB 02/19/24 Verified 05:00 Complete Blood Count LAB 02/20/24 Verified 05:00 Chest Portable XY 02/17/24 Verified 04:00 Lorazepam 2mg/Ml Inj PHA 02/16/24 Verified (Ativan Inj) 08:00 Date of Service: Feb 16, 2024 Billing Provider: WILMAR MENDES NP Common Visit Codes: [id number] CARE 30-74 MIN WILMAR MENDES NP Feb 16, 2024 07:57
[2024-02-16] MEDS: LORazepam 2MG/ML-1ML VIAL IV PRN ×2 (08:21→22:19)
[2024-02-16] MEDS: FUROSEMIDE INJECTION 100 MG in SODIUM CHL 0.9% 100 ML IV SCH (11:19)
[2024-02-16 12:37] LABS: Potassium 4.1 mmol/L (3.5-5.1)
--- NOTE | 2024-02-16 18:34 | DVHPN2 ---
Consult Progress Note Subjective Other Systems: Patient now on HiFlow cannula at 50L, FIO2 60% No cardiac events reported Objective vital signs Vital Sign Date Time Temp Pulse Resp B/P (MAP) Pulse Ox O2 Delivery O2 Flow Rate FiO2 02/16/24 18:16 115/42 02/16/24 16:09 79 16 97 60.0 50 02/16/24 12:00 98.4 98.4 02/16/24 11:30 Facial BiPAP Mask Total Intake and Output 02/15/24 02/15/24 02/16/24 15:00 23:00 07:00 Intake Total 250 ml 200 ml Output Total 1850 ml 725 ml Balance 250 ml -1850 ml -525 ml medications Current Medications Medications Dose Ordered Sig/Bria Route Start Time Stop Time Status Last Admin Dose Admin Acetaminophen/ Hydrocodone Bitart 1 tab Q4HP PRN PO 02/14/24 06:30 02/16/24 05:50 1 TAB Ondansetron HCl 4 mg Q4HP PRN IV 02/14/24 06:30 02/15/24 08:23 4 MG Enoxaparin Sodium 40 mg DAILY SC 02/14/24 10:00 02/16/24 08:43 40 MG Acetaminophen 650 mg Q6HP PRN PO 02/14/24 06:30 Morphine Sulfate 2 mg Q4HPRN PRN IV 02/14/24 06:30 02/16/24 15:18 2 MG Nitroglycerin 0.4 mg Q5MINP PRN SL 02/14/24 06:30 Morphine Sulfate 2 mg Q30M PRN IV 02/14/24 06:30 Diagnostic Test (Pha) 1 strip ACHS 02/14/24 07:00 02/16/24 17:00 1 STRIP Insulin Human Regular ACHS SC 02/14/24 07:00 02/16/24 18:04 3 UNITS Dextrose 50 ml UD PRN IV 02/14/24 06:30 Ceftriaxone Sodium 50 ml @ 100 mls/hr DAILY@09 IV 02/15/24 09:00 02/16/24 08:26 100 MLS/HR Azithromycin 250 ml @ 125 mls/hr DAILY IV 02/15/24 10:00 02/16/24 08:44 125 MLS/HR Albuterol 2.5 mg Q6HWA NEB 02/14/24 12:00 02/16/24 14:10 2.5 MG Albuterol 2.5 mg Q4HPRN PRN NEB 02/14/24 06:30 Ipratropium [place] 0.5 mg Q6HWA NEB 02/14/24 12:00 02/16/24 14:10 0.5 MG Ipratropium [place] 0.5 mg Q4HPRN PRN NEB 02/14/24 06:30 Budesonide 0.5 mg BID NEB 02/14/24 10:00 02/16/24 09:08 0.5 MG Famotidine 20 mg DAILY IV 02/14/24 10:00 02/16/24 08:21 20 MG Aspirin 81 mg DAILY PO 02/14/24 10:00 02/16/24 11:00 81 MG Atorvastatin Calcium 40 mg HS PO 02/14/24 22:00 02/15/24 21:52 40 MG Metoprolol Tartrate 12.5 mg BID PO 02/14/24 10:00 02/16/24 08:23 12.5 MG Losartan Potassium 12.5 mg DAILY PO 02/14/24 10:00 02/16/24 08:24 12.5 MG Empaglifozin 10 mg DAILY PO 02/14/24 10:00 02/16/24 08:25 10 MG Spironolactone 25 mg DAILY PO 02/14/24 10:00 02/16/24 08:22 25 MG Furosemide 100 mg/ Sodium Chloride 110 ml @ 11 mls/hr Q10H IV 02/16/24 07:45 02/16/24 18:16 11 MLS/HR Lorazepam 0.5 mg Q6HP PRN IV 02/16/24 16:30 Examination: GENERAL:Abnormal (Generalized weakness), LUNGS:Normal, CVS:Normal, NEURO:Normal laboratory and microbiology Laboratory Tests 02/16/24 11:54 02/16/24 03:15 Test 02/16/24 03:15 Range/Units Serum Glucose 112 H 74-106 mg/dL Problem List/Assessment/Plan Problem List/Assessment/Plan Chest pain, coronary artery disease ruled out Acute on chronic decompensated HFrEF, NYHA class IV ?Takotsubo cardiomyopathy Nonischemic cardiomyopathy Moderate to severe mitral valve regurgitation Hypertension Pneumonia Prediabetes Bilateral pleural effusion COPD with home O2 as needed Osteoporosis Anxiety History of tobacco use Plan/Recommendation (Dr. Hernandes): * Echocardiogram reveals EF 30% * Continue GDMT for CHF as tolerated by BP * Strict intake and output, daily weights, maintain fluid restriction * Diuresis as tolerated * BP control * Antibiotics per primary care Patient seen and examined at bedside with . The patient underwent a coronary angiogram on 02/15/2024 which revealed no significant coronary artery disease. We will recommend to continue guideline directed medical therapy for CHF, and diurese as tolerated. There is no further inpatient cardiac workup indicated at this time. The patient may qualify for CASING FLUID TENDER-D implantation after three months of GDMT with no improvement in EF. Patient will need to follow up with Cardiology in the outpatient setting in 1-2 weeks post discharge. Thank you for allowing us to care for this patient. Please call with any questions or concerns. Critical care time spent: 35 minutes This medical document was created using an electronic medical record system with voice recognition software and computerized dictation system. Although this document has been carefully reviewed, there might still be some phonetic and typographical errors. Occasional wrong-word or ``sound-alike substitutions may have occurred due to the inherent limitations of voice recognition software. These areas are purely typographical due to imperfections of the software programs and do not reflect any compromise in the patient's medical care. Please read the chart carefully and recognize, using context, where these substitutions have occurred. Plan discussed with: Patient Date of Service: Feb 16, 2024 Billing Provider: SAMANTHA HERNANDES MD Common Visit Codes: [id number] CARE 30-74 MIN TAY GLYNN Feb 16, 2024 18:34
[2024-02-16 19:00] LABS: Potassium 3.6 mmol/L (3.5-5.1)
--- NOTE | 2024-02-16 23:41 | DVHINCON2 ---
Date of service: Feb 16, 2024 Referring Physician Augustine Cruz NP Reason for Consultation Acute hypoxic respiratory failure History of Present Illness An 83-year-old woman with past medical history of hypertension, hyperlipidemia, depression, osteoarthritis, and anxiety who presented to ED on 02/14/24 with c/o shortness of breath x1 day. Patient reports she lives with her family and she just suddenly woke up feeling short of breath, was in a tripod position. EMS was called, they placed her on CPAP and brought her to the ER for evaluation. Patient uses about 2-3 L of nasal cannula on and off at home for shortness of breath. Reports she is compliant with her medications and has been seeing her PCP regularly. Patient was admitted for further care and pulmonary consultation is requested for evaluation and management due to the above findings. Review of Systems: 14-point review of systems negative unless otherwise noted above. Past Medical History: hypertension, hyperlipidemia, depression, osteoarthritis, and anxiety Past Surgical History: None Medications: Reviewed. Allergies: No known drug allergies. Family History: Dad w/ throat cancer, mom w/ emphysema. Social History: Nonsmoker. No alcohol or illicit drug use. Allergies: Coded Allergies: NO KNOWN ALLERGIES (Unverified , 02/14/24) Home Meds Reported Medications Ibuprofen (Ibuprofen) 600 Mg Tab, 600 MG PO, MG 0 Refills 02/15/24 Trazodone Hcl (Trazodone Hcl) 100 Mg Tab, 1 TAB PO QPM, #30 TAB 1 Refill 02/15/24 Albuterol Sulfate (VENTOLIN MDI) 90 Mcg Ih, 90 MCG INH Q6HP PRN for cough,SOB for 30 Days, MCG 02/15/24 Aspirin (Aspir-Low) 81 Mg Tab, 81 MG PO DAILY for 30 Days, MG 02/15/24 Beclomethasone Dipropionate (Qvar Redihaler) 80 Mcg/Act Aer, 2 PUFF IN DAILY for 30 Days, #10.6 02/15/24 Escitalopram Oxalate (ESCITALOPRAM OXALATE) 20 Mg Tab, 0.5 TAB PO DAILY 02/14/24 Alendronate Sodium (Alendronate Sodium) 70 Mg Tab, 1 TAB PO QWEEKLY 02/14/24 Losartan Potassium (Losartan Potassium) 50 Mg Tab, 1 TAB PO DAILY 02/14/24 Current Medications Current Medications Medications (Trade) Dose Ordered Sig/Bria Route PRN Reason Start Time Stop Time Status Last Admin Furosemide 100 mg/ Sodium Chloride 110 ml @ 11 mls/hr Q10H IV 02/16/24 07:45 02/16/24 18:16 Lorazepam (Ativan Inj) 0.5 mg Q12HP PRN IV ANXIETY 02/16/24 08:00 02/16/24 16:22 DC 02/16/24 08:21 Lorazepam (Ativan Inj) 0.5 mg Q6HP PRN IV ANXIETY 02/16/24 16:30 02/16/24 22:19 Vital Signs Vital Signs Date Time Temp Pulse Resp B/P (MAP) Pulse Ox O2 Delivery O2 Flow Rate FiO2 02/16/24 22:06 83 24 95 02/16/24 22:00 98/36 02/16/24 20:37 Nasal Cannula 3.0 02/16/24 20:00 60 60 02/16/24 17:00 98.5 98.5 Physical Exam Gen.: Patient lying in bed in no apparent distress. On supplemental oxygen. Head: Normocephalic, atraumatic. Eyes: EOMI/PERRLA. Ears: Normal hearing. Normal anatomy. Neck/trachea: Trachea midline, supple. Nose: Normal external anatomy. Mouth: Moist mucous membranes. Chest: Decreased air entry bilaterally. No wheezing or rhonchi. Cardiovascular: Positive S1, positive S2. Regular rate and rhythm. Abdomen: Positive bowel sounds in all 4 quadrants. Soft, non-tender, non- distended. : Deferred. Rectal: Deferred. Skin: Warm, dry. Intact. Extremities: 2+ radial pulses bilaterally. No lower extremity edema. Neuro: Awake, alert, oriented x3. No gross motor or sensory deficits. Cranial nerves II through XII intact. Gait not assessed. Labs/Diagnostic Data Labs Test 02/16/24 22:05 02/16/24 18:15 02/16/24 05:55 02/16/24 03:15 Range/Units POC Glucose 163 H 70-106 mg/dl Potassium Level 3.6 3.5-5.1 mmol/L Magnesium Level 2.0 1.6-2.6 mg/dL Blood Gas Specimen Type Arterial Blood Gas Sample Site Right radial Blood Gas Patient Temperature 37.0 Arterial Blood Date Drawn [id number] Arterial Blood pH 7.385 7.350-7.450 Arterial Blood Partial Pressure CO2 45.1 H 32.0-45.0 mmHg Arterial Blood Partial Pressure O2 71.2 L 83.0-108.0 mmHg Arterial Blood HCO3 26.4 21.0-28.0 mmol/L Arterial Blood Oxygen Saturation 93.1 L 94.0-98.0 % Arterial Blood Base Excess 1.0 -2.0-3.0 mmol/L Arterial Blood Oxyhemoglobin 92.5 L 94.0-98.0 % Arterial Blood Carboxyhemoglobin 0.2 L 0.5-1.5 % Arterial Blood Methemoglobin 0.4 0.0-1.5 % [place] Test Modified Blood Gas Total Hemoglobin 12.20 12.0-16.0 g/dL Blood Gas Modality Oxymizer FiO2 % 64.0 Specimen Drawn By cipriano pedro White Blood Count 12.9 H 4.4-10.8 10^3/uL Red Blood Count 3.96 L 4.0-5.20 10^6/uL Hemoglobin 10.4 L 12.2-16.2 g/dL Hematocrit 31.5 L 36.0-46.0 % Mean Corpuscular Volume 79.7 L 80.0-100.0 fL Mean Corpuscular Hemoglobin 26.3 L 28.0-32.0 pg Mean Corpuscular Hemoglobin Concent 33.0 32.0-36.0 g/dL Red Cell Distribution Width 14.9 H 11.8-14.3 % Platelet Count 394 140-450 10^3/uL Mean Platelet Volume 7.7 6.9-10.8 fL Neutrophils (%) (Auto) 82.0 H 37.0-80.0 % Lymphocytes (%) (Auto) 10.5 10.0-50.0 % Monocytes (%) (Auto) 6.9 0.0-12.0 % Eosinophils (%) (Auto) 0.4 0.0-7.0 % Basophils (%) (Auto) 0.2 0.0-2.0 % Neutrophils # (Auto) 10.6 H 1.6-8.6 10 ^3/uL Lymphocytes # (Auto) 1.3 0.4-5.4 10 ^3/uL Monocytes # (Auto) 0.9 0-1.3 10 ^3/uL Eosinophils # (Auto) 0 0-0.8 10 ^3/uL Basophils # (Auto) 0 0-0.2 10 ^3/uL Nucleated Red Blood Cells 0.0 % Sodium Level 138 136-145 mmol/L Chloride Level 105 98-107 mmol/L Carbon Dioxide Level 26 20-31 mmol/L Anion Gap 7 5-15 Blood Urea Nitrogen 18 9-23 mg/dL Creatinine 0.85 0.550-1.02 mg/dL Glomerular Filtration Rate Calc 68 >90 mL/min BUN/Creatinine Ratio 21.2 H 10.0-20.0 Serum Glucose 112 H 74-106 mg/dL Calcium Level 9.4 8.7-10.4 mg/dL Test 02/15/24 20:26 02/15/24 09:03 02/15/24 03:50 02/14/24 14:32 Range/Units Troponin I High Sensitivity 42 *H </=34 ng/L Prothrombin Time 11.8 9.3-11.8 sec Prothrombin Time INR 1.12 0.9-1.15 Activated Partial Thromboplast Time 106.3 *H 24.5-34.5 SEC Total Bilirubin 0.3 0.2-1.0 mg/dL Aspartate Amino Transferase (AST) 23 13-40 U/L Alanine Aminotransferase (ALT) 31 7-40 U/L Alkaline Phosphatase 116 46-116 U/L Total Protein 6.0 5.7-8.2 g/dL Albumin 3.8 3.2-4.8 g/dL Urine Color Light-yellow Yellow Urine Clarity Clear Clear Urine pH 6.5 5.0-9.0 Urine Specific [place] 1.015 1.001-1.035 Urine Protein 1+ H Negative Urine Ketones Negative Negative Urine Blood Negative Negative /uL Urine Nitrite Negative Negative Urine Bilirubin Negative Negative Urine Urobilinogen Normal Negative mg/dL Urine Leukocyte Esterase Negative Negative /uL Urine RBC 1 0 - 4 /hpf Urine WBC 3 0 - 5 /hpf Urine Squamous Epithelial Cells Few <5 /hpf Urine Bacteria None seen None Seen /hpf Urine Mucus Few None Seen Urine Glucose 4+ H Normal mg/dL Test 02/14/24 13:45 02/14/24 05:59 02/14/24 04:04 02/14/24 03:38 Range/Units Lactic Acid Level 2.8 *H 0.4-2.0 mmol/L Influenza Type A Antigen Negative Negative Influenza Type B Antigen Negative Negative SARS-CoV-2 Antigen (Rapid) Negative NEGATIVE Hemoglobin A1c 6.2 H <5.7 % A1C B-Type Natriuretic Peptide 439.38 0-100 pg/mL Thyroid Stimulating Hormone (TSH) 1.28 0.55-4.78 uIU/mL Blood Gas Spontaneous Rate 27 Blood Gas EPAP 6 Blood Gas IPAP 12 Microbiology Date/Time Source Procedure Growth Status 02/15/24 19:57 Nose MRSA Screen - Final Complete 02/14/24 13:45 Blood Blood Culture - Preliminary NO GROWTH AFTER 48 HOURS OF INCUBATION. Resulted Assessment Impression: Acute hypoxic respiratory failure Dependence on supplemental oxygen Acute decompensated systolic heart failure Leukocytosis Hypertension Obesity Plan: Supplemental oxygen On high-flow oxygen at 50 LPM, 60% FiO2 Titrate to keep O2 sats above 92%. Taper O2 as tolerated. Continue antibiotics Monitor WBC Monitor blood pressure closely Start Levophed if SBP <90 mmHg Diurese as tolerated w/ Lasix drip Monitor renal function. Monitor electrolytes. Supplement as necessary. Monitor ins and outs. Cardiology recs appreciated. Anxiolytic PRN anxiety. Diet and lifestyle modifications for weight reduction Obesity - complicates all care DVT prophylaxis. Prognosis: Poor given patient's multiple co-morbidities. Condition: Critical Rest of plan per hospitalist and other consultants. A total of 35 minutes of critical care time was spent reviewing the patient record, examining the patient, making a diagnostic and therapeutic plan, discussing this plan with the medical personnel, following up on diagnostic studies and following the patient for clinical stability excluding any and all procedures. At least 50% of this time was spent in direct, [id number] contact. Thank you, KARI Cruz, for allowing me to participate in this patient's care. Further recommendations will depend on the patient's clinical course. Please do not hesitate to contact me if you have any questions or concerns. This medical document was created using an electronic medical record system with [employer] dictation system. Although these documentations are being carefully reviewed, there may still be some phonetic and typographical changes. The errors are purely typographical, due to imperfection on the software program, and do not reflect any compromise in the patient's medical care. Plan discussed with: Patient, Other (MARIBELL Amaro/KARI Cruz/) LANA PARHAM MD Feb 16, 2024 23:41
[2024-02-17] VITALS (34 sets, daily range): BP systolic 96–145; BP diastolic 34–112; PULSE 65–88; RESP 12–31; TEMP 97.5–98.4; O2SAT 91–100
[2024-02-17 02:14] LABS: Potassium 3.4 mmol/L (3.5-5.1)
[2024-02-17 04:40] LABS: Basophils # (auto) 0 10 ^3/uL (0-0.2); Eosinophils # (auto) 0 10 ^3/uL (0-0.8); Hemoglobin 12.2 g/dL (12.2-16.2); Mean Corpuscular Hemoglobin 26.4 pg (28.0-32.0); Monocytes # (auto) 0.6 10 ^3/uL (0-1.3)
[2024-02-17 04:46] LABS: Basophils % (auto) 0.1 % (0.0-2.0); Hematocrit 36.3 % (36.0-46.0); Lymphocytes # (auto) 0.9 10 ^3/uL (0.4-5.4); Lymphocytes % (auto) 6.5 % (10.0-50.0); Mean Corpuscular Hgb Conc. 33.5 g/dL (32.0-36.0); Mean Corpuscular Volume 78.6 fL (80.0-100.0); Monocytes % (auto) 4.8 % (0.0-12.0); Neutrophils # (auto) 11.9 10 ^3/uL (1.6-8.6); Neutrophils % (auto) 88.6 % (37.0-80.0); Platelet Count (auto) 442 10^3/uL (140-450); Red Blood Cells 4.62 10^6/uL (4.0-5.20); Red Cell Distribution Width 14.7 % (11.8-14.3); White Blood Cell 13.4 10^3/uL (4.4-10.8)
[2024-02-17 04:54] LABS: Anion Gap 11 (5-15); Calcium 9.3 mg/dL (8.7-10.4); Carbon Dioxide 28 mmol/L (20-31); Chloride 99 mmol/L (98-107); Sodium 138 mmol/L (136-145)
[2024-02-17 05:00] LABS: BUN/Creatinine Ratio 21.6 (10.0-20.0); Blood Urea Nitrogen 22 mg/dL (9-23); Glucose 118 mg/dL (74-106); Potassium 3.3 mmol/L (3.5-5.1)
[2024-02-17 05:01] LABS: Magnesium 2.1 mg/dL (1.6-2.6)
--- NOTE | 2024-02-17 05:40 | DVH ---
CHEST RADIOGRAPH Indication: chf Technique: Single frontal view of the chest was obtained COMPARISON: XY CHEST PORTABLE on DOS: 02/16/24, XY CHEST PORTABLE on DOS: 02/15/24, XY CHEST PORTABLE on DOS: 02/14/24 FINDINGS: Lines and Tubes: None Lungs: Congestion Pleura: No effusion. No pneumothorax. Cardiomediastinal contours: Cardiomegaly Bones: Unremarkable IMPRESSION: Slight interval increase in diffuse congestion.
[2024-02-17] MEDS: POTASSIUM CHL 20MEQ/100ML 100 ML IV SCH (08:46)
--- NOTE | 2024-02-17 09:03 | DVHPN2 ---
Subjective Patient resting comfortably. Denies any symptoms at this time. Reviewed: Care Plan, H&P, Labs, Medications Changes from previous H/P or p: Changes General: Per HPI Eyes: No Pain, No Vision change, No Conjunctivae inflammation, No Eyelid inflammation, No Other, No Redness ENT: No Ear pain, No Ear discharge, No Nose pain, No Nose discharge, No Nose congestion, No Mouth pain, No Mouth swelling, No Throat pain, No Throat swelling, No Other Cardiovascular: No Chest Pain, No Palpitations, No Orthopnea, No Paroxysmal Noc. Dyspnea, No Edema, No Lt Headedness; Other (Chest tightness) Respiratory: No Cough, No Dry; Shortness of breath; No SOB with excertion, No Wheezing, No Hemoptysis, No Pleuritic Pain, No Sputum, No Other Gastrointestinal: No Nausea, No Vomiting, No Abdominal Pain, No Diarrhea, No Constipation, No Melena, No Hematochezia, No Other Genitourinary: No Dysuria, No Frequency, No Incontinence, No Hematuria, No Retention, No Other Musculoskeletal: No other, No neck pain, No shoulder pain, No arm pain, No back pain, No hand pain, No leg pain, No foot pain Skin: No Rash, No Lesions, No Jaundice, No Bruising, No Other Objective Vitals Vital Signs Date Time Temp Pulse Resp B/P (MAP) Pulse Ox O2 Delivery O2 Flow Rate FiO2 02/17/24 06:53 81 18 99 50.0 60 02/17/24 06:51 Hi-Flow Heated NC+ 02/17/24 06:00 145/67 (93) 02/17/24 04:00 97.5 97.5 Intake/Output Intake and Output 02/17/24 07:00 Intake Total 787 ml Output Total 3450 ml Balance -2663 ml Intake Oral 300 ml IV Total 487 ml Output Urine Total 3450 ml General Appearance: Alert, Oriented X3, Cooperative, mild distress HEENT: Atraumatic, PERRLA, EOMI Lungs: Clear to auscultation, Normal air movement Cardiovascular: Normal S1, Normal S2 Abdomen: Normal bowel sounds, Soft, No tenderness, No hepatospenomegaly Musculoskeletal: Normal sensory function, Normal motor function Neuro: Normal gait, Normal speech Psych/Mental Status: Mental status NL, Mood NL Medications Current Medications Medications Dose Ordered Sig/Bria Route Start Time Stop Time Status Last Admin Dose Admin Acetaminophen/ Hydrocodone Bitart 1 tab Q4HP PRN PO 02/14/24 06:30 02/16/24 20:44 1 TAB Ondansetron HCl 4 mg Q4HP PRN IV 02/14/24 06:30 02/15/24 08:23 4 MG Enoxaparin Sodium 40 mg DAILY SC 02/14/24 10:00 02/16/24 08:43 40 MG Acetaminophen 650 mg Q6HP PRN PO 02/14/24 06:30 Morphine Sulfate 2 mg Q4HPRN PRN IV 02/14/24 06:30 02/16/24 15:18 2 MG Nitroglycerin 0.4 mg Q5MINP PRN SL 02/14/24 06:30 Morphine Sulfate 2 mg Q30M PRN IV 02/14/24 06:30 Diagnostic Test (Pha) 1 strip ACHS 02/14/24 07:00 02/17/24 08:56 1 STRIP Insulin Human Regular ACHS SC 02/14/24 07:00 02/16/24 22:08 3 UNITS Dextrose 50 ml UD PRN IV 02/14/24 06:30 Ceftriaxone Sodium 50 ml @ 100 mls/hr DAILY@09 IV 02/15/24 09:00 02/16/24 08:26 100 MLS/HR Azithromycin 250 ml @ 125 mls/hr DAILY IV 02/15/24 10:00 02/16/24 08:44 125 MLS/HR Albuterol 2.5 mg Q6HWA NEB 02/14/24 12:00 02/17/24 06:46 2.5 MG Albuterol 2.5 mg Q4HPRN PRN NEB 02/14/24 06:30 Ipratropium [place] 0.5 mg Q6HWA NEB 02/14/24 12:00 02/17/24 06:46 0.5 MG Ipratropium [place] 0.5 mg Q4HPRN PRN NEB 02/14/24 06:30 Budesonide 0.5 mg BID NEB 02/14/24 10:00 02/17/24 06:45 0.5 MG Aspirin 81 mg DAILY PO 02/14/24 10:00 02/16/24 11:00 81 MG Atorvastatin Calcium 40 mg HS PO 02/14/24 22:00 02/16/24 22:04 40 MG Metoprolol Tartrate 12.5 mg BID PO 02/14/24 10:00 02/16/24 08:23 12.5 MG Losartan Potassium 12.5 mg DAILY PO 02/14/24 10:00 02/16/24 08:24 12.5 MG Empaglifozin 10 mg DAILY PO 02/14/24 10:00 02/16/24 08:25 10 MG Spironolactone 25 mg DAILY PO 02/14/24 10:00 02/16/24 08:22 25 MG Potassium Chloride 100 ml @ 50 mls/hr Q2H IV 02/17/24 06:30 02/17/24 10:29 02/17/24 08:46 50 MLS/HR Patient Own Medication 0.5 tab DAILY PO 02/17/24 10:00 UNV Laboratory Results Laboratory Tests 02/17/24 03:39 Chemistry Test 02/16/24 11:54 02/16/24 18:15 02/17/24 00:23 02/17/24 03:39 Magnesium Level 2.0 mg/dL (1.6-2.6) 2.0 mg/dL (1.6-2.6) 2.0 mg/dL (1.6-2.6) 2.1 mg/dL (1.6-2.6) Calcium Level 9.3 mg/dL (8.7-10.4) Urinalysis Test 02/14/24 14:32 Urine Color Light-yellow (Yellow) Urine Clarity Clear (Clear) Urine pH 6.5 (5.0-9.0) Urine Specific [place] 1.015 (1.001-1.035) Urine Protein 1+ (Negative) H Urine Ketones Negative (Negative) Urine Blood Negative /uL (Negative) Urine Nitrite Negative (Negative) Urine Bilirubin Negative (Negative) Urine Urobilinogen Normal mg/dL (Negative) Urine Leukocyte Esterase Negative /uL (Negative) Urine RBC 1 /hpf (0 - 4) Urine WBC 3 /hpf (0 - 5) Urine Squamous Epithelial Cells Few /hpf (<5) Urine Bacteria None seen /hpf (None Seen) Urine Mucus Few (None Seen) Urine Glucose 4+ mg/dL (Normal) H Microbiology Microbiology Date/Time Source Procedure Growth Status 02/15/24 19:57 Nose MRSA Screen - Final Complete 02/14/24 13:45 Blood Blood Culture - Preliminary NO GROWTH AFTER 48 HOURS OF INCUBATION. Resulted Labs and/or images reviewed: Labs reviewed by me, Image(s) reviewed by me Assessment/Plan Assessment/Plan Impression: -acute hypoxic respiratory failure -acute decompensated systolic heart failure -leukocytosis, rule out sepsis -hypothyroidism -dyslipidemia -primary hypertension -acute coronary syndrome -anxiety disorder Plan: -events: Stop Lasix drip. Transitioned to IV Bumex pulse dose. Continue K and Mag supplementation. Patient weaned down to 40% on high-flow nasal cannula. -restart antianxiety medication, p.r.n. hydroxyzine -serial K and Mag with replete as needed -cardiology consultation: Recommendations reviewed -continue goal-directed medical therapy -blood and sputum culture -repeat labs and chest x-ray in am -transfer to step-down ICU Critical care time spent with patient discussing and formulating plan of care: 40 minutes. This does not include time spent performing procedures. This medical document was created using an electronic medical record system with [employer] dictation system. Although this document has been carefully reviewed, there may still be some phonetic and typographical errors. These areas are purely typographical due to imperfections of the software programs, and do not reflect any compromise in the patient's medical care. Plan discussed with: Patient, Daughter, Other (RN) My Orders Orders - WILMAR MENDES NP Procedure Category Date Status Time Communication Order ORDERS 02/16/24 Transmitted 15:56 Potassium Chl PHA 02/17/24 In Process 20meq/100ml 06:30 (Nf) Escitalopram PHA 02/17/24 Logged Oxalate 10:00 Magnesium Oxide PHA 02/17/24 Verified Tablet (Mag-Ox Tablet) 10:00 Bumetanide Injection PHA 02/17/24 Verified (Bumex Injection) 18:00 Chest Ultrasound US 02/17/24 Verified 08:57 Hydroxyzine Oral PHA 02/17/24 Verified (Vistaril Oral) 09:00 Transfer Orders XFER 02/17/24 Verified 08:57 Date of Service: Feb 17, 2024 Billing Provider: WILMAR MENDES NP Common Visit Codes: [id number] CARE 30-74 MIN WILMAR MENDES NP Feb 17, 2024 09:03
[2024-02-17] MEDS: CITALOPRAM HYDROBR 20 MG TAB PO SCH (10:05)
[2024-02-17] MEDS: MAGNESIUM OXIDE 400 MG TAB PO SCH (10:06)
--- NOTE | 2024-02-17 10:22 | DVH ---
US CHEST ULTRASOUND, HISTORY: pleural effusion COMPARISON(S): None TECHNICAL DATA: Transverse and longitudinal images are obtained of the chest. FINDING: IMPRESSION(S): Trace bilateral pleural effusion.
[2024-02-17] MEDS: hydrOXYzine HCL 10 MG TAB PO PRN (12:38)
[2024-02-17] MEDS: BUMETANIDE 1mg/4ml VIAL (0.25mg/ml) IV SCH (17:23)
--- NOTE | 2024-02-17 22:26 | DVHPN2 ---
Progress Note - Dictate Date Seen: Feb 17, 2024 Medical Necessity Reason Pt with a Central, PICC or Fol: Yes The following are medically ne: Chaudhry Catheter Reason for chaudhry catheter: Strict I&O Subjective Patient seen and examined at bedside. Remains on supplemental oxygen Overnight events reviewed. vital signs Vital Sign Date Time Temp Pulse Resp B/P (MAP) Pulse Ox O2 Delivery O2 Flow Rate FiO2 02/17/24 22:09 70 15 94 50.0 50 02/17/24 22:03 113/39 02/17/24 20:00 Hi-Flow Heated NC+ 02/17/24 16:00 97.9 97.9 Total Intake and Output 02/16/24 02/16/24 02/17/24 14:59 22:59 06:59 Intake Total 333 ml 328 ml 126 ml Output Total 2600 ml 850 ml Balance 333 ml -2272 ml -724 ml medications Current Medications Medications Dose Ordered Sig/Bria Route Start Time Stop Time Status Last Admin Dose Admin Acetaminophen/ Hydrocodone Bitart 1 tab Q4HP PRN PO 02/14/24 06:30 02/17/24 21:25 1 TAB Ondansetron HCl 4 mg Q4HP PRN IV 02/14/24 06:30 02/15/24 08:23 4 MG Enoxaparin Sodium 40 mg DAILY SC 02/14/24 10:00 02/17/24 10:06 40 MG Acetaminophen 650 mg Q6HP PRN PO 02/14/24 06:30 Morphine Sulfate 2 mg Q4HPRN PRN IV 02/14/24 06:30 02/17/24 17:21 2 MG Nitroglycerin 0.4 mg Q5MINP PRN SL 02/14/24 06:30 Morphine Sulfate 2 mg Q30M PRN IV 02/14/24 06:30 Ceftriaxone Sodium 50 ml @ 100 mls/hr DAILY@09 IV 02/15/24 09:00 02/17/24 13:54 100 MLS/HR Azithromycin 250 ml @ 125 mls/hr DAILY IV 02/15/24 10:00 02/17/24 14:53 125 MLS/HR Albuterol 2.5 mg Q6HWA NEB 02/14/24 12:00 02/17/24 18:33 2.5 MG Albuterol 2.5 mg Q4HPRN PRN NEB 02/14/24 06:30 Ipratropium [place] 0.5 mg Q6HWA NEB 02/14/24 12:00 02/17/24 18:33 0.5 MG Ipratropium [place] 0.5 mg Q4HPRN PRN NEB 02/14/24 06:30 Budesonide 0.5 mg BID NEB 02/14/24 10:00 02/17/24 18:33 0.5 MG Aspirin 81 mg DAILY PO 02/14/24 10:00 02/17/24 10:06 81 MG Atorvastatin Calcium 40 mg HS PO 02/14/24 22:00 02/17/24 22:02 40 MG Metoprolol Tartrate 12.5 mg BID PO 02/14/24 10:00 02/17/24 22:03 12.5 MG Losartan Potassium 12.5 mg DAILY PO 02/14/24 10:00 02/17/24 10:06 12.5 MG Empaglifozin 10 mg DAILY PO 02/14/24 10:00 02/17/24 10:06 10 MG Spironolactone 25 mg DAILY PO 02/14/24 10:00 02/17/24 10:05 25 MG Citalopram Hydrobromide 20 mg DAILY PO 02/17/24 10:00 02/17/24 10:05 20 MG Magnesium Oxide 400 mg DAILY PO 02/17/24 10:00 02/17/24 10:06 400 MG Bumetanide 1 mg BIDD IV 02/17/24 18:00 02/17/24 17:23 1 MG Hydroxyzine HCl 10 mg Q6HP PRN PO 02/17/24 09:00 02/17/24 12:38 10 MG objective Gen.: Patient lying in bed in no apparent distress. On supplemental oxygen. Head: Normocephalic, atraumatic. Eyes: EOMI/PERRLA. Ears: Normal hearing. Normal anatomy. Neck/trachea: Trachea midline, supple. Nose: Normal external anatomy. Mouth: Moist mucous membranes. Chest: Decreased air entry bilaterally. No wheezing or rhonchi. Cardiovascular: Positive S1, positive S2. Regular rate and rhythm. Abdomen: Positive bowel sounds in all 4 quadrants. Soft, non-tender, non- distended. : Deferred. Rectal: Deferred. Skin: Warm, dry. Intact. Extremities: 2+ radial pulses bilaterally. No lower extremity edema. Neuro: Awake, alert, oriented x3. No gross motor or sensory deficits. Cranial nerves II through XII intact. Gait not assessed. laboratory and microbiology Laboratory Tests 02/17/24 03:39 Test 02/17/24 03:39 Range/Units Serum Glucose 118 H 74-106 mg/dL Assessment/Plan Impression: Acute hypoxic respiratory failure Dependence on supplemental oxygen Acute decompensated systolic heart failure Leukocytosis Hypertension Obesity Events: Remains on supplemental oxygen, On high-flow oxygen at 50 LPM, 50% FiO2 Taper as tolerated Improved O2 requirements Patient noted to have anxiety/panic attack Anxiolytic PRN Continue antibiotics IV fluid hydration Lasix drip for diuresis Monitor renal function. Monitor electrolytes. Supplement as necessary. Potassium supplementation Monitor respiratory status closely d/t high O2 requirements Labs and imaging reviewed. Rest of plan as noted below Plan: Supplemental oxygen Titrate to keep O2 sats above 92%. Continue antibiotics Monitor WBC Monitor blood pressure closely Start Levophed if SBP <90 mmHg Diurese as tolerated w/ Lasix drip Monitor renal function. Monitor electrolytes. Supplement as necessary. Monitor ins and outs. Cardiology recs appreciated. Anxiolytic PRN anxiety. Diet and lifestyle modifications for weight reduction Obesity - complicates all care DVT prophylaxis. Prognosis: Poor given patient's multiple co-morbidities. Condition: Critical Rest of plan per hospitalist and other consultants. A total of 35 minutes of critical care time was spent reviewing the patient record, examining the patient, making a diagnostic and therapeutic plan, discussing this plan with the medical personnel, following up on diagnostic studies and following the patient for clinical stability excluding any and all procedures. At least 50% of this time was spent in direct, [id number] contact. Thank you, KARI Cruz, for allowing me to participate in this patient's care. Further recommendations will depend on the patient's clinical course. Please do not hesitate to contact me if you have any questions or concerns. This medical document was created using an electronic medical record system with [employer] dictation system. Although these documentations are being carefully reviewed, there may still be some phonetic and typographical changes. The errors are purely typographical, due to imperfection on the software program, and do not reflect any compromise in the patient's medical care. Dietary Evaluation Review Comments: Continue current plan of care Expected Outcomes/Goals: F/U in 3-5 days Plan discussed with: Patient, Other (MARIBELL Doyle) Critical Care Time(min): 35 LANA PARHAM MD Feb 17, 2024 22:26
[2024-02-18] VITALS (37 sets, daily range): BP systolic 12–138; BP diastolic 23–71; PULSE 59–96; RESP 11–37; TEMP 97.4–98.8; O2SAT 85–98
[2024-02-18] MEDS: MORPHINE SULFATE INJ 2 MG/ml SYRG IV PRN (01:31)
[2024-02-18 04:35] LABS: Basophils # (auto) 0 10 ^3/uL (0-0.2); Basophils % (auto) 0.4 % (0.0-2.0); Eosinophils # (auto) 0 10 ^3/uL (0-0.8); Eosinophils % (auto) 0.4 % (0.0-7.0); Hematocrit 35.2 % (36.0-46.0); Hemoglobin 12.1 g/dL (12.2-16.2); Lymphocytes # (auto) 2.1 10 ^3/uL (0.4-5.4); Lymphocytes % (auto) 20.8 % (10.0-50.0); Mean Corpuscular Hgb Conc. 34.4 g/dL (32.0-36.0); Mean Corpuscular Volume 78.6 fL (80.0-100.0); Monocytes # (auto) 0.9 10 ^3/uL (0-1.3); Monocytes % (auto) 8.3 % (0.0-12.0); Neutrophils # (auto) 7.2 10 ^3/uL (1.6-8.6); Neutrophils % (auto) 70.1 % (37.0-80.0); Platelet Count (auto) 440 10^3/uL (140-450); Red Blood Cells 4.48 10^6/uL (4.0-5.20); Red Cell Distribution Width 14.7 % (11.8-14.3); White Blood Cell 10.3 10^3/uL (4.4-10.8)
[2024-02-18 04:46] LABS: Chloride 99 mmol/L (98-107); Sodium 137 mmol/L (136-145)
[2024-02-18 04:47] LABS: Anion Gap 10 (5-15); Carbon Dioxide 28 mmol/L (20-31)
[2024-02-18 04:48] LABS: Calcium 8.8 mg/dL (8.7-10.4); Potassium 3.2 mmol/L (3.5-5.1)
[2024-02-18 04:52] LABS: BUN/Creatinine Ratio 29.5 (10.0-20.0); Glucose 103 mg/dL (74-106)
[2024-02-18 04:53] LABS: Magnesium 2.1 mg/dL (1.6-2.6)
[2024-02-18 05:08] LABS: Blood Urea Nitrogen 28 mg/dL (9-23)
[2024-02-18] MEDS: POTASSIUM CHL 20MEQ/100ML 100 ML IV SCH (07:30)
[2024-02-18] MEDS: POTASSIUM EFFERVESENT TAB 25 MEQ PO SCH (07:56)
[2024-02-18] MEDS: APIXABAN 2.5 MG TAB PO SCH (07:57)
[2024-02-18] MEDS: Ensure Enlive Chocolate 8oz Bottle PO SCH (08:00)
--- NOTE | 2024-02-18 08:00 | DVHPN2 ---
Subjective Patient resting comfortably. Denies any symptoms at this time. Reviewed: Care Plan, H&P, Labs, Medications Changes from previous H/P or p: No Changes General: Per HPI Eyes: No Pain, No Vision change, No Conjunctivae inflammation, No Eyelid inflammation, No Other, No Redness ENT: No Ear pain, No Ear discharge, No Nose pain, No Nose discharge, No Nose congestion, No Mouth pain, No Mouth swelling, No Throat pain, No Throat swelling, No Other Cardiovascular: No Chest Pain, No Palpitations, No Orthopnea, No Paroxysmal Noc. Dyspnea, No Edema, No Lt Headedness; Other (Chest tightness) Respiratory: No Cough, No Dry; Shortness of breath; No SOB with excertion, No Wheezing, No Hemoptysis, No Pleuritic Pain, No Sputum, No Other Gastrointestinal: No Nausea, No Vomiting, No Abdominal Pain, No Diarrhea, No Constipation, No Melena, No Hematochezia, No Other Genitourinary: No Dysuria, No Frequency, No Incontinence, No Hematuria, No Retention, No Other Musculoskeletal: No other, No neck pain, No shoulder pain, No arm pain, No back pain, No hand pain, No leg pain, No foot pain Skin: No Rash, No Lesions, No Jaundice, No Bruising, No Other Objective Vitals Vital Signs Date Time Temp Pulse Resp B/P (MAP) Pulse Ox O2 Delivery O2 Flow Rate FiO2 02/18/24 06:05 75 11 96 50.0 50 02/18/24 06:00 117/50 (72) 02/18/24 04:00 98.5 98.5 02/17/24 22:23 Facial BiPAP Mask Intake/Output Intake and Output 02/18/24 07:00 Intake Total 1481 ml Output Total 800 ml Balance 681 ml Intake Oral 970 ml IV Total 511 ml Output Urine Total 800 ml General Appearance: Alert, Oriented X3, Cooperative, mild distress HEENT: Atraumatic, PERRLA, EOMI Lungs: Clear to auscultation, Normal air movement Cardiovascular: Normal S1, Normal S2 Abdomen: Normal bowel sounds, Soft, No tenderness, No hepatospenomegaly Musculoskeletal: Normal sensory function, Normal motor function Neuro: Normal gait, Normal speech Psych/Mental Status: Mental status NL, Mood NL Medications Current Medications Medications Dose Ordered Sig/Bria Route Start Time Stop Time Status Last Admin Dose Admin Acetaminophen/ Hydrocodone Bitart 1 tab Q4HP PRN PO 02/14/24 06:30 02/17/24 21:25 1 TAB Ondansetron HCl 4 mg Q4HP PRN IV 02/14/24 06:30 02/18/24 01:31 4 MG Acetaminophen 650 mg Q6HP PRN PO 02/14/24 06:30 Morphine Sulfate 2 mg Q4HPRN PRN IV 02/14/24 06:30 02/17/24 17:21 2 MG Nitroglycerin 0.4 mg Q5MINP PRN SL 02/14/24 06:30 Morphine Sulfate 2 mg Q30M PRN IV 02/14/24 06:30 02/18/24 01:31 2 MG Ceftriaxone Sodium 50 ml @ 100 mls/hr DAILY@09 IV 02/15/24 09:00 02/17/24 13:54 100 MLS/HR Azithromycin 250 ml @ 125 mls/hr DAILY IV 02/15/24 10:00 02/17/24 14:53 125 MLS/HR Albuterol 2.5 mg Q6HWA [facility] 02/14/24 12:00 02/18/24 06:04 2.5 MG Albuterol 2.5 mg Q4HPRN PRN NEB 02/14/24 06:30 Ipratropium [place] 0.5 mg Q6HWA NEB 02/14/24 12:00 02/18/24 06:04 0.5 MG Ipratropium [place] 0.5 mg Q4HPRN PRN NEB 02/14/24 06:30 Budesonide 0.5 mg BID NEB 02/14/24 10:00 02/17/24 18:33 0.5 MG Aspirin 81 mg DAILY PO 02/14/24 10:00 02/17/24 10:06 81 MG Atorvastatin Calcium 40 mg HS PO 02/14/24 22:00 02/17/24 22:02 40 MG Metoprolol Tartrate 12.5 mg BID PO 02/14/24 10:00 02/17/24 22:03 12.5 MG Losartan Potassium 12.5 mg DAILY PO 02/14/24 10:00 02/17/24 10:06 12.5 MG Empaglifozin 10 mg DAILY PO 02/14/24 10:00 02/17/24 10:06 10 MG Spironolactone 25 mg DAILY PO 02/14/24 10:00 02/17/24 10:05 25 MG Citalopram Hydrobromide 20 mg DAILY PO 02/17/24 10:00 02/17/24 10:05 20 MG Magnesium Oxide 400 mg DAILY PO 02/17/24 10:00 02/17/24 10:06 400 MG Bumetanide 1 mg BIDD IV 02/17/24 18:00 02/18/24 05:49 1 MG Hydroxyzine HCl 10 mg Q6HP PRN PO 02/17/24 09:00 02/18/24 01:49 10 MG Potassium Chloride 100 ml @ 50 mls/hr Q2H IV 02/18/24 05:30 02/18/24 09:29 Enteral Nutritional Formula 240 ml TIDWM PO 02/18/24 08:00 Potassium Bicarbonate 25 meq DAILY PO 02/18/24 10:00 Apixaban 2.5 mg BID PO 02/18/24 10:00 Laboratory Results Laboratory Tests 02/18/24 03:17 Chemistry Test 02/17/24 12:10 02/18/24 03:17 Magnesium Level 2.0 mg/dL (1.6-2.6) 2.1 mg/dL (1.6-2.6) Calcium Level 8.8 mg/dL (8.7-10.4) Urinalysis Test 02/14/24 14:32 Urine Color Light-yellow (Yellow) Urine Clarity Clear (Clear) Urine pH 6.5 (5.0-9.0) Urine Specific [place] 1.015 (1.001-1.035) Urine Protein 1+ (Negative) H Urine Ketones Negative (Negative) Urine Blood Negative /uL (Negative) Urine Nitrite Negative (Negative) Urine Bilirubin Negative (Negative) Urine Urobilinogen Normal mg/dL (Negative) Urine Leukocyte Esterase Negative /uL (Negative) Urine RBC 1 /hpf (0 - 4) Urine WBC 3 /hpf (0 - 5) Urine Squamous Epithelial Cells Few /hpf (<5) Urine Bacteria None seen /hpf (None Seen) Urine Mucus Few (None Seen) Urine Glucose 4+ mg/dL (Normal) H Microbiology Microbiology Date/Time Source Procedure Growth Status 02/15/24 19:57 Nose MRSA Screen - Final Complete 02/14/24 13:45 Blood Blood Culture - Preliminary NO GROWTH AFTER 72 HOURS OF INCUBATION. Resulted Labs and/or images reviewed: Labs reviewed by me, Image(s) reviewed by me Assessment/Plan Assessment/Plan Impression: -acute hypoxic respiratory failure -acute decompensated systolic heart failure -leukocytosis, rule out sepsis -hypothyroidism -dyslipidemia -primary hypertension -acute coronary syndrome -anxiety disorder Plan: -events: Continues to be on high-flow nasal cannula. WBC normal -continue antianxiety medication -potassium replaced -cardiology consultation: Recommendations reviewed -continue goal-directed medical therapy -blood and sputum culture -repeat labs and chest x-ray in am Critical care time spent with patient discussing and formulating plan of care: 40 minutes. This does not include time spent performing procedures. This medical document was created using an electronic medical record system with [employer] system. Although this document has been carefully reviewed, there may still be some phonetic and typographical errors. These areas are purely typographical due to imperfections of the software programs, and do not reflect any compromise in the patient's medical care Plan discussed with: Patient, Other (RN) My Orders Orders - WILMAR MENDES NP Procedure Category Date Status Time Citalopram Tablet PHA 02/17/24 In Process (Celexa Tablet) 10:00 Magnesium Oxide PHA 02/17/24 In Process Tablet (Mag-Ox Tablet) 10:00 Chest Ultrasound US 02/17/24 Resulted 08:57 Hydroxyzine Oral PHA 02/17/24 In Process (Vistaril Oral) 09:00 Transfer Orders XFER 02/17/24 Transmitted 08:57 Bumetanide Injection PHA 02/17/24 In Process (Bumex Injection) 18:00 Potassium Chl PHA 02/18/24 In Process 20meq/100ml 05:[address] 02/18/24 Logged 06:52 Nutritional PHA 02/18/24 In Process Supplements (Ensure 08:00 Potassium Effervesent PHA 02/18/24 In Process Tab (Klor-Con/Ef) 10:00 Apixaban (Eliquis) PHA 02/18/24 In Process 10:00 Date of Service: Feb 18, 2024 Billing Provider: WILMAR MENDES NP Common Visit Codes: [id number] CARE 30-74 MIN WILMAR MENDES NP Feb 18, 2024 07:59
--- NOTE | 2024-02-18 12:18 | DVH ---
EXAM: CT CHEST WITHOUT CONTRAST HISTORY: hypoxia, interstitial lung disease COMPARISON: None TECHNIQUE: Axial images were obtained and reformatted in coronal and sagittal planes. All CT scans at this medical facility are performed using dose modulation techniques as appropriate to a performed exam including the following: Automated exposure control was utilized; adjustment of the MA and/or K V according to patient size; and use of iterative reconstruction technique. CT Dose: CTDI volume is 9.89 mGy. Dose-length product is 335.49 mGy*cm FINDINGS: Lower neck: A subcentimeter calcification is seen in the right lobe. The right ovary is asymmetrical ly enlarged. Cardiomediastinal: Moderate cardiomegaly. Mild coronary artery calcification. Calcification of the aortic valve noted. Scattered calcified plaques of aorta. Lungs: Small bilateral pleural effusions with mild adjacent pulmonary opacities. Bones and Soft Tissues: No acute abnormality. Mild age-indeterminate anterior compression deformitie s of several mid to lower thoracic vertebrae without retropulsion. Upper Abdomen: No acute abnormality. There is hepatic steatosis. A partially seen approximately 2 c m cyst noted in the right hepatic lobe. Ill-defined hypodense lesion in the left hepatic lobe adjace nt to the fissure for falciform ligament, incompletely evaluated but probably focal fatty change. Co ntour deformity of the left kidney reflecting underlying lesions that are incompletely evaluated in t his motion degraded study Other: None. IMPRESSION: 1. No evidence of interstitial lung disease. No signs of COPD. 2. Small bilateral pleural effusions mild bilateral lower lung zone pulmonary opacities may represent atelectasis or developing pneumonia. Evaluation is very limited due to moderate respiratory motion. Recommend clinical and biochemical correlation. 3. Several nonemergent findings in the upper abdomen, suboptimally evaluated due to motion degradatio n and lack of contrast. Recommend further evaluation with abdominal CT scan without and with IV cont rast. 4. Moderate cardiomegaly.
[2024-02-18] MEDS: POTASSIUM EFFERVESENT TAB 25 MEQ PO ONE (15:42)
--- NOTE | 2024-02-18 23:04 | DVHPN2 ---
Progress Note - Dictate Date Seen: Feb 18, 2024 Medical Necessity Reason Pt with a Central, PICC or Fol: Yes The following are medically ne: Chaudhry Catheter Reason for chaudhry catheter: Strict I&O Subjective Patient seen and examined at bedside. Remains on supplemental oxygen Overnight events reviewed. vital signs Vital Sign Date Time Temp Pulse Resp B/P (MAP) Pulse Ox O2 Delivery O2 Flow Rate FiO2 02/18/24 22:15 68 129/57 02/18/24 22:00 18 90 Oxymizer 12 N/A 02/18/24 20:00 98.8 98.8 Total Intake and Output 02/17/24 02/17/24 02/18/24 15:00 23:00 07:00 Intake Total 261 ml 970 ml 250 ml Output Total 300 ml 500 ml Balance 261 ml 670 ml -250 ml medications Current Medications Medications Dose Ordered Sig/Bria Route Start Time Stop Time Status Last Admin Dose Admin Acetaminophen/ Hydrocodone Bitart 1 tab Q4HP PRN PO 02/14/24 06:30 02/18/24 21:02 1 TAB Ondansetron HCl 4 mg Q4HP PRN IV 02/14/24 06:30 02/18/24 01:31 4 MG Acetaminophen 650 mg Q6HP PRN PO 02/14/24 06:30 Morphine Sulfate 2 mg Q4HPRN PRN IV 02/14/24 06:30 02/17/24 17:21 2 MG Nitroglycerin 0.4 mg Q5MINP PRN SL 02/14/24 06:30 Morphine Sulfate 2 mg Q30M PRN IV 02/14/24 06:30 02/18/24 01:31 2 MG Ceftriaxone Sodium 50 ml @ 100 mls/hr DAILY@09 IV 02/15/24 09:00 02/18/24 07:57 100 MLS/HR Azithromycin 250 ml @ 125 mls/hr DAILY IV 02/15/24 10:00 02/18/24 08:43 125 MLS/HR Albuterol 2.5 mg Q6HWA NEB 02/14/24 12:00 02/18/24 18:29 2.5 MG Albuterol 2.5 mg Q4HPRN PRN NEB 02/14/24 06:30 Ipratropium [place] 0.5 mg Q6HWA NEB 02/14/24 12:00 02/18/24 18:29 0.5 MG Ipratropium [place] 0.5 mg Q4HPRN PRN NEB 02/14/24 06:30 Budesonide 0.5 mg BID NEB 02/14/24 10:00 02/18/24 18:29 0.5 MG Aspirin 81 mg DAILY PO 02/14/24 10:00 02/18/24 07:57 81 MG Atorvastatin Calcium 40 mg HS PO 02/14/24 22:00 02/18/24 21:02 40 MG Metoprolol Tartrate 12.5 mg BID PO 02/14/24 10:00 02/18/24 21:03 12.5 MG Losartan Potassium 12.5 mg DAILY PO 02/14/24 10:00 02/18/24 07:57 12.5 MG Empaglifozin 10 mg DAILY PO 02/14/24 10:00 02/18/24 08:42 10 MG Spironolactone 25 mg DAILY PO 02/14/24 10:00 02/18/24 07:56 25 MG Citalopram Hydrobromide 20 mg DAILY PO 02/17/24 10:00 02/18/24 07:56 20 MG Magnesium Oxide 400 mg DAILY PO 02/17/24 10:00 02/18/24 07:57 400 MG Bumetanide 1 mg BIDD IV 02/17/24 18:00 02/18/24 17:49 1 MG Hydroxyzine HCl 10 mg Q6HP PRN PO 02/17/24 09:00 02/18/24 14:41 10 MG Enteral Nutritional Formula 240 ml TIDWM PO 02/18/24 08:00 02/18/24 18:31 240 ML Potassium Bicarbonate 25 meq DAILY PO 02/18/24 10:00 02/18/24 07:56 25 MEQ Apixaban 2.5 mg BID PO 02/18/24 10:00 02/18/24 21:04 2.5 MG objective Gen.: Patient lying in bed in no apparent distress. On supplemental oxygen. Head: Normocephalic, atraumatic. Eyes: EOMI/PERRLA. Ears: Normal hearing. Normal anatomy. Neck/trachea: Trachea midline, supple. Nose: Normal external anatomy. Mouth: Moist mucous membranes. Chest: Decreased air entry bilaterally. No wheezing or rhonchi. Cardiovascular: Positive S1, positive S2. Regular rate and rhythm. Abdomen: Positive bowel sounds in all 4 quadrants. Soft, non-tender, non- distended. : Deferred. Rectal: Deferred. Skin: Warm, dry. Intact. Extremities: 2+ radial pulses bilaterally. No lower extremity edema. Neuro: Awake, alert, oriented x3. No gross motor or sensory deficits. Cranial nerves II through XII intact. Gait not assessed. laboratory and microbiology Laboratory Tests 02/18/24 03:17 Test 02/18/24 03:17 Range/Units Serum Glucose 103 74-106 mg/dL Assessment/Plan Impression: Acute hypoxic respiratory failure Dependence on supplemental oxygen Acute decompensated systolic heart failure Leukocytosis Hypertension Obesity Events: Remains on supplemental oxygen, Transitioned from high-flow oxygen to 12 LPM Oxymizer Continue to taper as tolerated Improved O2 requirements CT chest revealed small bilateral pleural effusions, atelectasis We will perform limited chest ultrasound to assess if pleural effusions amenable for thoracentesis. Continue antibiotics Anxiolytic PRN Diurese as tolerated w/ Bumex BID Monitor renal function. Monitor electrolytes. Supplement as necessary. Potassium supplementation Monitor respiratory status closely d/t high O2 requirements Pt is stable for downgrade to JOSE. Labs and imaging reviewed. Rest of plan as noted below Plan: Supplemental oxygen Titrate to keep O2 sats above 92%. Continue antibiotics Monitor WBC Monitor blood pressure closely Start Levophed if SBP <90 mmHg Diurese to euvolemia Monitor renal function. Monitor electrolytes. Supplement as necessary. Monitor ins and outs. Cardiology recs appreciated. Anxiolytic PRN anxiety. Diet and lifestyle modifications for weight reduction Obesity - complicates all care DVT prophylaxis. Prognosis: Poor given patient's multiple co-morbidities. Condition: Critical Rest of plan per hospitalist and other consultants. A total of 35 minutes of critical care time was spent reviewing the patient record, examining the patient, making a diagnostic and therapeutic plan, discussing this plan with the medical personnel, following up on diagnostic studies and following the patient for clinical stability excluding any and all procedures. At least 50% of this time was spent in direct, [id number] contact. Thank you, KARI Cruz, for allowing me to participate in this patient's care. Further recommendations will depend on the patient's clinical course. Please do not hesitate to contact me if you have any questions or concerns. This medical document was created using an electronic medical record system with [employer] dictation system. Although these documentations are being carefully reviewed, there may still be some phonetic and typographical changes. The errors are purely typographical, due to imperfection on the software program, and do not reflect any compromise in the patient's medical care. Dietary Evaluation Review Comments: Continue current plan of care Expected Outcomes/Goals: F/U in 3-5 days Plan discussed with: Other (MARIBELL Doyle) Critical Care Time(min): 35 LANA PARHAM MD Feb 18, 2024 23:04
[2024-02-19] VITALS (34 sets, daily range): BP systolic 98–152; BP diastolic 49–113; PULSE 62–93; RESP 9–37; TEMP 98.2–98.8; O2SAT 87–100
[2024-02-19 04:04] LABS: Basophils # (auto) 0 10 ^3/uL (0-0.2); Eosinophils # (auto) 0.1 10 ^3/uL (0-0.8); Lymphocytes # (auto) 2.2 10 ^3/uL (0.4-5.4); Red Cell Distribution Width 14.8 % (11.8-14.3)
[2024-02-19 04:05] LABS: Basophils % (auto) 0.5 % (0.0-2.0); Eosinophils % (auto) 0.9 % (0.0-7.0); Hematocrit 36.8 % (36.0-46.0); Hemoglobin 12.4 g/dL (12.2-16.2); Lymphocytes % (auto) 21.1 % (10.0-50.0); Mean Corpuscular Hemoglobin 26.4 pg (28.0-32.0); Mean Corpuscular Hgb Conc. 33.8 g/dL (32.0-36.0); Mean Corpuscular Volume 77.9 fL (80.0-100.0); Monocytes % (auto) 9.4 % (0.0-12.0); Neutrophils # (auto) 7.2 10 ^3/uL (1.6-8.6); Neutrophils % (auto) 68.1 % (37.0-80.0); Platelet Count (auto) 442 10^3/uL (140-450); Red Blood Cells 4.72 10^6/uL (4.0-5.20); White Blood Cell 10.6 10^3/uL (4.4-10.8)
[2024-02-19 04:13] LABS: Chloride 99 mmol/L (98-107); Potassium 3.9 mmol/L (3.5-5.1)
[2024-02-19 04:14] LABS: Anion Gap 7 (5-15); Carbon Dioxide 30 mmol/L (20-31)
[2024-02-19 04:15] LABS: Calcium 9.4 mg/dL (8.7-10.4)
[2024-02-19 04:16] LABS: Sodium 136 mmol/L (136-145)
[2024-02-19 04:20] LABS: BUN/Creatinine Ratio 26.6 (10.0-20.0)
[2024-02-19 04:23] LABS: Blood Urea Nitrogen 25 mg/dL (9-23); Glucose 110 mg/dL (74-106)
--- NOTE | 2024-02-19 11:18 | DVHPN2 ---
Subjective Patient resting comfortably. Denies any symptoms at this time. Reviewed: Care Plan, H&P, Labs, Medications Changes from previous H/P or p: No Changes General: Per HPI Eyes: No Pain, No Vision change, No Conjunctivae inflammation, No Eyelid inflammation, No Other, No Redness ENT: No Ear pain, No Ear discharge, No Nose pain, No Nose discharge, No Nose congestion, No Mouth pain, No Mouth swelling, No Throat pain, No Throat swelling, No Other Cardiovascular: Other Respiratory: Shortness of breath Gastrointestinal: No Nausea, No Vomiting, No Abdominal Pain, No Diarrhea, No Constipation, No Melena, No Hematochezia, No Other Genitourinary: No Dysuria, No Frequency, No Incontinence, No Hematuria, No Retention, No Other Musculoskeletal: No other, No neck pain, No shoulder pain, No arm pain, No back pain, No hand pain, No leg pain, No foot pain Skin: No Rash, No Lesions, No Jaundice, No Bruising, No Other Objective Vitals Vital Signs Date Time Temp Pulse Resp B/P (MAP) Pulse Ox O2 Delivery O2 Flow Rate FiO2 02/19/24 10:17 86 118/64 02/19/24 07:00 16 98 02/19/24 04:00 98.8 98.8 02/19/24 00:19 Oxymizer 10 N/A Intake/Output Intake and Output 02/19/24 07:00 Intake Total 1700 ml Output Total 1825 ml Balance -125 ml Intake Oral 1350 ml IV Total 350 ml Output Urine Total 1825 ml General Appearance: Alert, Oriented X3, Cooperative, mild distress HEENT: Atraumatic, PERRLA, EOMI Lungs: Clear to auscultation, Normal air movement Cardiovascular: Normal S1, Normal S2 Abdomen: Normal bowel sounds, Soft, No tenderness, No hepatospenomegaly Musculoskeletal: Normal sensory function, Normal motor function Neuro: Normal gait, Normal speech Psych/Mental Status: Mental status NL, Mood NL Medications Current Medications Medications Dose Ordered Sig/Bria Route Start Time Stop Time Status Last Admin Dose Admin Acetaminophen/ Hydrocodone Bitart 1 tab Q4HP PRN PO 02/14/24 06:30 02/19/24 08:34 1 TAB Ondansetron HCl 4 mg Q4HP PRN IV 02/14/24 06:30 02/19/24 08:33 4 MG Acetaminophen 650 mg Q6HP PRN PO 02/14/24 06:30 Morphine Sulfate 2 mg Q4HPRN PRN IV 02/14/24 06:30 02/19/24 05:54 2 MG Nitroglycerin 0.4 mg Q5MINP PRN SL 02/14/24 06:30 Morphine Sulfate 2 mg Q30M PRN IV 02/14/24 06:30 02/18/24 01:31 2 MG Ceftriaxone Sodium 50 ml @ 100 mls/hr DAILY@09 IV 02/15/24 09:00 02/19/24 08:58 100 MLS/HR Azithromycin 250 ml @ 125 mls/hr DAILY IV 02/15/24 10:00 02/19/24 10:06 125 MLS/HR Albuterol 2.5 mg Q6HWA [facility] [place] 02/14/24 12:00 02/19/24 06:13 2.5 MG Albuterol 2.5 mg Q4HPRN PRN NEB 02/14/24 06:30 Ipratropium [place] 0.5 mg Q6HWA [facility] [place] 02/14/24 12:00 02/19/24 06:14 0.5 MG Ipratropium [place] 0.5 mg Q4HPRN PRN NEB 02/14/24 06:30 Budesonide 0.5 mg BID NEB 02/14/24 10:00 02/19/24 06:14 0.5 MG Aspirin 81 mg DAILY PO 02/14/24 10:00 02/19/24 10:16 81 MG Atorvastatin Calcium 40 mg HS PO 02/14/24 22:00 02/18/24 21:02 40 MG Metoprolol Tartrate 12.5 mg BID PO 02/14/24 10:00 02/19/24 10:17 12.5 MG Losartan Potassium 12.5 mg DAILY PO 02/14/24 10:00 02/19/24 10:08 12.5 MG Empaglifozin 10 mg DAILY PO 02/14/24 10:00 02/19/24 10:06 10 MG Spironolactone 25 mg DAILY PO 02/14/24 10:00 02/19/24 10:16 25 MG Citalopram Hydrobromide 20 mg DAILY PO 02/17/24 10:00 02/19/24 10:08 20 MG Magnesium Oxide 400 mg DAILY PO 02/17/24 10:00 02/19/24 10:06 400 MG Bumetanide 1 mg BIDD IV 02/17/24 18:00 02/19/24 05:54 1 MG Hydroxyzine HCl 10 mg Q6HP PRN PO 02/17/24 09:00 02/18/24 14:41 10 MG Enteral Nutritional Formula 240 ml TIDWM PO 02/18/24 08:00 02/19/24 08:00 240 ML Potassium Bicarbonate 25 meq DAILY PO 02/18/24 10:00 02/19/24 10:06 25 MEQ Apixaban 2.5 mg BID PO 02/18/24 10:00 02/19/24 10:10 2.5 MG Laboratory Results Laboratory Tests 02/19/24 03:09 Chemistry Test 02/19/24 03:09 Calcium Level 9.4 mg/dL (8.7-10.4) Urinalysis Test 02/14/24 14:32 Urine Color Light-yellow (Yellow) Urine Clarity Clear (Clear) Urine pH 6.5 (5.0-9.0) Urine Specific [place] 1.015 (1.001-1.035) Urine Protein 1+ (Negative) H Urine Ketones Negative (Negative) Urine Blood Negative /uL (Negative) Urine Nitrite Negative (Negative) Urine Bilirubin Negative (Negative) Urine Urobilinogen Normal mg/dL (Negative) Urine Leukocyte Esterase Negative /uL (Negative) Urine RBC 1 /hpf (0 - 4) Urine WBC 3 /hpf (0 - 5) Urine Squamous Epithelial Cells Few /hpf (<5) Urine Bacteria None seen /hpf (None Seen) Urine Mucus Few (None Seen) Urine Glucose 4+ mg/dL (Normal) H Microbiology Microbiology Date/Time Source Procedure Growth Status 02/15/24 19:57 Nose MRSA Screen - Final Complete 02/14/24 13:45 Blood Blood Culture - Preliminary NO GROWTH AFTER 72 HOURS OF INCUBATION. Resulted Labs and/or images reviewed: Labs reviewed by me, Image(s) reviewed by me Assessment/Plan Assessment/Plan Impression: -acute hypoxic respiratory failure -acute decompensated systolic heart failure -leukocytosis, rule out sepsis -hypothyroidism -dyslipidemia -primary hypertension -acute coronary syndrome -anxiety disorder Plan: -events: Patient was off high-flow nasal cannula and on Oxymizer. Patient continues to have periods of panic attacks with high respiratory rate. CT scan performed of the chest yesterday with minimal infiltrates, small pleural effusions. -continue bronchodilators, Pulmicort, Solu-Medrol -continue antianxiety medication -cardiology consultation: Recommendations reviewed -continue goal-directed medical therapy -blood and sputum culture -repeat labs and chest x-ray in am -step-down ICU status Critical care time spent with patient discussing and formulating plan of care: 40 minutes. This does not include time spent performing procedures. This medical document was created using an electronic medical record system with [employer] dictation system. Although this document has been carefully reviewed, there may still be some phonetic and typographical errors. These areas are purely typographical due to imperfections of the software programs, and do not reflect any compromise in the patient's medical care Plan discussed with: Patient, Other (RN) Date of Service: Feb 19, 2024 Billing Provider: WILMAR MENDES NP Common Visit Codes: 86619-[id number] CARE 30-74 MIN WILMAR MENDES NP Feb 19, 2024 11:18
--- NOTE | 2024-02-19 23:35 | DVHPN2 ---
Progress Note - Dictate Date Seen: Feb 19, 2024 Medical Necessity Reason Pt with a Central, PICC or Fol: Yes The following are medically ne: Chaudhry Catheter Reason for chaudhry catheter: Strict I&O Subjective Patient seen and examined at bedside. Currently breathing on room air Overnight events reviewed. vital signs Vital Sign Date Time Temp Pulse Resp B/P (MAP) Pulse Ox O2 Delivery O2 Flow Rate FiO2 02/19/24 22:40 83 30 134/62 02/19/24 20:00 94 Oxymizer 8 N/A 02/19/24 20:00 98.2 98.2 Total Intake and Output 02/18/24 02/18/24 02/19/24 15:00 23:00 07:00 Intake Total 350 ml 800 ml 550 ml Output Total 875 ml 950 ml Balance 350 ml -75 ml -400 ml medications Current Medications Medications Dose Ordered Sig/Bria Route Start Time Stop Time Status Last Admin Dose Admin Acetaminophen/ Hydrocodone Bitart 1 tab Q4HP PRN PO 02/14/24 06:30 02/19/24 08:34 1 TAB Ondansetron HCl 4 mg Q4HP PRN IV 02/14/24 06:30 02/19/24 22:45 4 MG Acetaminophen 650 mg Q6HP PRN PO 02/14/24 06:30 Morphine Sulfate 2 mg Q4HPRN PRN IV 02/14/24 06:30 02/19/24 22:40 2 MG Nitroglycerin 0.4 mg Q5MINP PRN SL 02/14/24 06:30 Morphine Sulfate 2 mg Q30M PRN IV 02/14/24 06:30 02/18/24 01:31 2 MG Ceftriaxone Sodium 50 ml @ 100 mls/hr DAILY@09 IV 02/15/24 09:00 02/19/24 08:58 100 MLS/HR Azithromycin 250 ml @ 125 mls/hr DAILY IV 02/15/24 10:00 02/19/24 10:06 125 MLS/HR Albuterol 2.5 mg Q6HWA NEB 02/14/24 12:00 02/19/24 18:31 2.5 MG Albuterol 2.5 mg Q4HPRN PRN NEB 02/14/24 06:30 Ipratropium [place] 0.5 mg Q6HWA NEB 02/14/24 12:00 02/19/24 18:31 0.5 MG Ipratropium [place] 0.5 mg Q4HPRN PRN NEB 02/14/24 06:30 Budesonide 0.5 mg BID NEB 02/14/24 10:00 02/19/24 18:30 0.5 MG Aspirin 81 mg DAILY PO 02/14/24 10:00 02/19/24 10:16 81 MG Atorvastatin Calcium 40 mg HS PO 02/14/24 22:00 02/19/24 21:35 40 MG Metoprolol Tartrate 12.5 mg BID PO 02/14/24 10:00 02/19/24 21:36 12.5 MG Losartan Potassium 12.5 mg DAILY PO 02/14/24 10:00 02/19/24 10:08 12.5 MG Empaglifozin 10 mg DAILY PO 02/14/24 10:00 02/19/24 10:06 10 MG Spironolactone 25 mg DAILY PO 02/14/24 10:00 02/19/24 10:16 25 MG Citalopram Hydrobromide 20 mg DAILY PO 02/17/24 10:00 02/19/24 10:08 20 MG Magnesium Oxide 400 mg DAILY PO 02/17/24 10:00 02/19/24 10:06 400 MG Bumetanide 1 mg BIDD IV 02/17/24 18:00 02/19/24 17:25 1 MG Hydroxyzine HCl 10 mg Q6HP PRN PO 02/17/24 09:00 02/19/24 21:36 10 MG Enteral Nutritional Formula 240 ml TIDWM PO 02/18/24 08:00 02/19/24 21:39 240 ML Potassium Bicarbonate 25 meq DAILY PO 02/18/24 10:00 02/19/24 10:06 25 MEQ Apixaban 2.5 mg BID PO 02/18/24 10:00 02/19/24 21:36 2.5 MG objective Gen.: Patient lying in bed in no apparent distress. On room air. Head: Normocephalic, atraumatic. Eyes: EOMI/PERRLA. Ears: Normal hearing. Normal anatomy. Neck/trachea: Trachea midline, supple. Nose: Normal external anatomy. Mouth: Moist mucous membranes. Chest: Decreased air entry bilaterally. No wheezing or rhonchi. Cardiovascular: Positive S1, positive S2. Regular rate and rhythm. Abdomen: Positive bowel sounds in all 4 quadrants. Soft, non-tender, non- distended. : Deferred. Rectal: Deferred. Skin: Warm, dry. Intact. Extremities: 2+ radial pulses bilaterally. No lower extremity edema. Neuro: Awake, alert, oriented x3. No gross motor or sensory deficits. Cranial nerves II through XII intact. Gait not assessed. laboratory and microbiology Laboratory Tests 02/19/24 03:09 Test 02/19/24 03:09 Range/Units Serum Glucose 110 H 74-106 mg/dL Assessment/Plan Impression: Acute hypoxic respiratory failure Dependence on supplemental oxygen Acute decompensated systolic heart failure Leukocytosis Hypertension Obesity Events: Tapered off supplemental oxygen 12 LPM Oxymizer Currently breathing on room air. Supplemental oxygen PRN Improved O2 requirements CT chest on 02/18/24 revealed small bilateral pleural effusions, atelectasis Continue antibiotics Anxiolytic PRN Diurese as tolerated w/ Bumex BID Monitor renal function. Monitor electrolytes. Supplement as necessary. Potassium supplementation Labs and imaging reviewed. Rest of plan as noted below Plan: Supplemental oxygen PRN Titrate to keep O2 sats above 92%. Continue antibiotics Monitor WBC Monitor blood pressure closely Start Levophed if SBP <90 mmHg Diurese to euvolemia Monitor renal function. Monitor electrolytes. Supplement as necessary. Monitor ins and outs. Cardiology recs appreciated. Anxiolytic PRN anxiety. Diet and lifestyle modifications for weight reduction Obesity - complicates all care DVT prophylaxis. Prognosis: Poor given patient's multiple co-morbidities. Condition: Critical Rest of plan per hospitalist and other consultants. A total of 35 minutes of critical care time was spent reviewing the patient record, examining the patient, making a diagnostic and therapeutic plan, discussing this plan with the medical personnel, following up on diagnostic studies and following the patient for clinical stability excluding any and all procedures. At least 50% of this time was spent in direct, [id number] contact. Thank you, KARI Cruz, for allowing me to participate in this patient's care. Further recommendations will depend on the patient's clinical course. Please do not hesitate to contact me if you have any questions or concerns. This medical document was created using an electronic medical record system with [employer] dictation system. Although these documentations are being carefully reviewed, there may still be some phonetic and typographical changes. The errors are purely typographical, due to imperfection on the software program, and do not reflect any compromise in the patient's medical care. Dietary Evaluation Review Comments: Continue current plan of care Expected Outcomes/Goals: F/U in 3-5 days Plan discussed with: Patient, Other (RN Ty) Critical Care Time(min): 35 LANA PARHAM MD Feb 19, 2024 23:35
[2024-02-20] VITALS (27 sets, daily range): BP systolic 92–141; BP diastolic 42–68; PULSE 63–97; RESP 10–26; TEMP 98.1–98.9; O2SAT 89–98
[2024-02-20 06:59] LABS: Basophils # (auto) 0 10 ^3/uL (0-0.2); Basophils % (auto) 0.3 % (0.0-2.0); Eosinophils # (auto) 0.2 10 ^3/uL (0-0.8); Eosinophils % (auto) 1.4 % (0.0-7.0); Hemoglobin 12.4 g/dL (12.2-16.2); Lymphocytes # (auto) 2.2 10 ^3/uL (0.4-5.4); Lymphocytes % (auto) 18.9 % (10.0-50.0); Mean Corpuscular Hemoglobin 25.9 pg (28.0-32.0); Mean Corpuscular Hgb Conc. 33.5 g/dL (32.0-36.0); Mean Corpuscular Volume 77.5 fL (80.0-100.0); Monocytes % (auto) 8.3 % (0.0-12.0); Neutrophils # (auto) 8.4 10 ^3/uL (1.6-8.6); Neutrophils % (auto) 71.1 % (37.0-80.0); Platelet Count (auto) 443 10^3/uL (140-450); Red Blood Cells 4.77 10^6/uL (4.0-5.20); Red Cell Distribution Width 14.5 % (11.8-14.3); White Blood Cell 11.8 10^3/uL (4.4-10.8)
[2024-02-20 07:26] LABS: Anion Gap 9 (5-15); Carbon Dioxide 27 mmol/L (20-31)
[2024-02-20 07:27] LABS: Calcium 9.5 mg/dL (8.7-10.4)
[2024-02-20 07:29] LABS: Chloride 97 mmol/L (98-107); Potassium 4.2 mmol/L (3.5-5.1); Sodium 133 mmol/L (136-145)
[2024-02-20 07:32] LABS: BUN/Creatinine Ratio 20.6 (10.0-20.0); Blood Urea Nitrogen 21 mg/dL (9-23)
[2024-02-20 07:38] LABS: Glucose 111 mg/dL (74-106)
--- NOTE | 2024-02-20 14:43 | DVHPN2 ---
Subjective Patient states that she has improvement with her breathing. Reviewed: Care Plan, H&P, Labs, Medications Changes from previous H/P or p: No Changes General: Per HPI Eyes: No Pain, No Vision change, No Conjunctivae inflammation, No Eyelid inflammation, No Other, No Redness ENT: No Ear pain, No Ear discharge, No Nose pain, No Nose discharge, No Nose congestion, No Mouth pain, No Mouth swelling, No Throat pain, No Throat swelling, No Other Cardiovascular: Other Respiratory: Shortness of breath Gastrointestinal: No Nausea, No Vomiting, No Abdominal Pain, No Diarrhea, No Constipation, No Melena, No Hematochezia, No Other Genitourinary: No Dysuria, No Frequency, No Incontinence, No Hematuria, No Retention, No Other Musculoskeletal: No other, No neck pain, No shoulder pain, No arm pain, No back pain, No hand pain, No leg pain, No foot pain Skin: No Rash, No Lesions, No Jaundice, No Bruising, No Other Objective Vitals Vital Signs Date Time Temp Pulse Resp B/P (MAP) Pulse Ox O2 Delivery O2 Flow Rate FiO2 02/20/24 14:00 76 23 107/50 (69) 92 02/20/24 12:25 Oxymizer 6.0 02/20/24 12:25 N/A 02/20/24 12:00 98.6 98.6 Intake/Output Intake and Output 02/20/24 07:00 Intake Total 1000 ml Output Total 1400 ml Balance -400 ml Intake Oral 700 ml IV Total 300 ml Output Urine Total 1400 ml General Appearance: Alert, Oriented X3, Cooperative, mild distress HEENT: Atraumatic, PERRLA, EOMI Lungs: Clear to auscultation, Normal air movement Cardiovascular: Normal S1, Normal S2 Abdomen: Normal bowel sounds, Soft, No tenderness, No hepatospenomegaly Musculoskeletal: Normal sensory function, Normal motor function Neuro: Normal gait, Normal speech Psych/Mental Status: Mental status NL, Mood NL Medications Current Medications Medications Dose Ordered Sig/Bria Route Start Time Stop Time Status Last Admin Dose Admin Acetaminophen/ Hydrocodone Bitart 1 tab Q4HP PRN PO 02/14/24 06:30 02/20/24 05:45 1 TAB Ondansetron HCl 4 mg Q4HP PRN IV 02/14/24 06:30 02/20/24 03:16 4 MG Acetaminophen 650 mg Q6HP PRN PO 02/14/24 06:30 Morphine Sulfate 2 mg Q4HPRN PRN IV 02/14/24 06:30 02/20/24 03:17 2 MG Nitroglycerin 0.4 mg Q5MINP PRN SL 02/14/24 06:30 Morphine Sulfate 2 mg Q30M PRN IV 02/14/24 06:30 02/18/24 01:31 2 MG Ceftriaxone Sodium 50 ml @ 100 mls/hr DAILY@09 IV 02/15/24 09:00 02/20/24 09:07 100 MLS/HR Albuterol 2.5 mg Q6HWA NEB 02/14/24 12:00 02/20/24 12:25 2.5 MG Albuterol 2.5 mg Q4HPRN PRN NEB 02/14/24 06:30 Ipratropium [place] 0.5 mg Q6HWA NEB 02/14/24 12:00 02/20/24 12:25 0.5 MG Ipratropium [place] 0.5 mg Q4HPRN PRN NEB 02/14/24 06:30 Budesonide 0.5 mg BID NEB 02/14/24 10:00 02/20/24 06:45 0.5 MG Aspirin 81 mg DAILY PO 02/14/24 10:00 02/20/24 09:55 81 MG Atorvastatin Calcium 40 mg HS PO 02/14/24 22:00 02/19/24 21:35 40 MG Metoprolol Tartrate 12.5 mg BID PO 02/14/24 10:00 02/20/24 09:55 12.5 MG Losartan Potassium 12.5 mg DAILY PO 02/14/24 10:00 02/20/24 10:01 12.5 MG Empaglifozin 10 mg DAILY PO 02/14/24 10:00 02/20/24 09:53 10 MG Spironolactone 25 mg DAILY PO 02/14/24 10:00 02/20/24 09:55 25 MG Citalopram Hydrobromide 20 mg DAILY PO 02/17/24 10:00 02/20/24 09:53 20 MG Magnesium Oxide 400 mg DAILY PO 02/17/24 10:00 02/20/24 09:53 400 MG Bumetanide 1 mg BIDD IV 02/17/24 18:00 02/20/24 05:38 1 MG Hydroxyzine HCl 10 mg Q6HP PRN PO 02/17/24 09:00 02/20/24 13:49 10 MG Enteral Nutritional Formula 240 ml TIDWM PO 02/18/24 08:00 02/20/24 12:00 240 ML Potassium Bicarbonate 25 meq DAILY PO 02/18/24 10:00 02/20/24 09:53 25 MEQ Apixaban 2.5 mg BID PO 02/18/24 10:00 02/20/24 09:53 2.5 MG Laboratory Results Laboratory Tests 02/20/24 05:36 Chemistry Test 02/20/24 05:36 Calcium Level 9.5 mg/dL (8.7-10.4) Urinalysis Test 02/14/24 14:32 Urine Color Light-yellow (Yellow) Urine Clarity Clear (Clear) Urine pH 6.5 (5.0-9.0) Urine Specific [place] 1.015 (1.001-1.035) Urine Protein 1+ (Negative) H Urine Ketones Negative (Negative) Urine Blood Negative /uL (Negative) Urine Nitrite Negative (Negative) Urine Bilirubin Negative (Negative) Urine Urobilinogen Normal mg/dL (Negative) Urine Leukocyte Esterase Negative /uL (Negative) Urine RBC 1 /hpf (0 - 4) Urine WBC 3 /hpf (0 - 5) Urine Squamous Epithelial Cells Few /hpf (<5) Urine Bacteria None seen /hpf (None Seen) Urine Mucus Few (None Seen) Urine Glucose 4+ mg/dL (Normal) H Microbiology Microbiology Date/Time Source Procedure Growth Status 02/15/24 19:57 Nose MRSA Screen - Final Complete 02/14/24 13:45 Blood Blood Culture - Final NO GROWTH AFTER 5 DAYS OF INCUBATION. Complete Labs and/or images reviewed: Labs reviewed by me, Image(s) reviewed by me Assessment/Plan Assessment/Plan Impression: -acute hypoxic respiratory failure -acute decompensated systolic heart failure -leukocytosis, rule out sepsis -hypothyroidism -dyslipidemia -primary hypertension -acute coronary syndrome -anxiety disorder Plan: -events: Patient on Oxymizer at 6 liters/minute. Patient was respiratory status improved. -continue bronchodilators, Pulmicort, Solu-Medrol -continue antianxiety medication -cardiology consultation: Recommendations reviewed -continue goal-directed medical therapy -PT consultation -transferred to telemetry floor Total time spent with patient discussing and formulating plan of care: 35 minutes. This medical document was created using an electronic medical record system with [employer] dictation system. Although this document has been carefully reviewed, there may still be some phonetic and typographical errors. These areas are purely typographical due to imperfections of the software programs, and do not reflect any compromise in the patient's medical care Plan discussed with: Patient, Other (RN) My Orders Orders - WILMAR MENDES NP Procedure Category Date Status Time Transfer Orders XFER 02/20/24 Transmitted 12:45 Pt Request For Service PT 02/20/24 Logged 12:45 Date of Service: Feb 20, 2024 Billing Provider: WILMAR MENDES NP Common Visit Codes: [id number] INP/OBS CARE(HIGH) WILMAR MENDES NP Feb 20, 2024 14:43
--- NOTE | 2024-02-20 19:00 | DVHPN2 ---
Progress Note - Dictate Date Seen: Feb 20, 2024 Medical Necessity Reason Pt with a Central, PICC or Fol: Yes The following are medically ne: Chaudhry Catheter Reason for chaudhry catheter: Strict I&O Subjective Patient seen and examined at bedside. On supplemental oxygen Overnight events reviewed. vital signs Vital Sign Date Time Temp Pulse Resp B/P (MAP) Pulse Ox O2 Delivery O2 Flow Rate FiO2 02/20/24 17:00 98.1 77 17 109/61 (77) 91 98.1 02/20/24 12:25 Oxymizer 6.0 02/20/24 12:25 N/A Total Intake and Output 02/19/24 02/19/24 02/20/24 15:00 23:00 07:00 Intake Total 300 ml 700 ml Output Total 700 ml 700 ml Balance 300 ml 0 ml -700 ml medications Current Medications Medications Dose Ordered Sig/Bria Route Start Time Stop Time Status Last Admin Dose Admin Acetaminophen/ Hydrocodone Bitart 1 tab Q4HP PRN PO 02/14/24 06:30 02/20/24 05:45 1 TAB Ondansetron HCl 4 mg Q4HP PRN IV 02/14/24 06:30 02/20/24 03:16 4 MG Acetaminophen 650 mg Q6HP PRN PO 02/14/24 06:30 Morphine Sulfate 2 mg Q4HPRN PRN IV 02/14/24 06:30 02/20/24 03:17 2 MG Nitroglycerin 0.4 mg Q5MINP PRN SL 02/14/24 06:30 Morphine Sulfate 2 mg Q30M PRN IV 02/14/24 06:30 02/18/24 01:31 2 MG Ceftriaxone Sodium 50 ml @ 100 mls/hr DAILY@09 IV 02/15/24 09:00 02/20/24 09:07 100 MLS/HR Albuterol 2.5 mg Q6HWA NEB 02/14/24 12:00 02/20/24 12:25 2.5 MG Albuterol 2.5 mg Q4HPRN PRN NEB 02/14/24 06:30 Ipratropium [place] 0.5 mg Q6HWA NEB 02/14/24 12:00 02/20/24 12:25 0.5 MG Ipratropium [place] 0.5 mg Q4HPRN PRN NEB 02/14/24 06:30 Budesonide 0.5 mg BID NEB 02/14/24 10:00 02/20/24 06:45 0.5 MG Aspirin 81 mg DAILY PO 02/14/24 10:00 02/20/24 09:55 81 MG Atorvastatin Calcium 40 mg HS PO 02/14/24 22:00 02/19/24 21:35 40 MG Metoprolol Tartrate 12.5 mg BID PO 02/14/24 10:00 02/20/24 09:55 12.5 MG Losartan Potassium 12.5 mg DAILY PO 02/14/24 10:00 02/20/24 10:01 12.5 MG Empaglifozin 10 mg DAILY PO 02/14/24 10:00 02/20/24 09:53 10 MG Spironolactone 25 mg DAILY PO 02/14/24 10:00 02/20/24 09:55 25 MG Citalopram Hydrobromide 20 mg DAILY PO 02/17/24 10:00 02/20/24 09:53 20 MG Magnesium Oxide 400 mg DAILY PO 02/17/24 10:00 02/20/24 09:53 400 MG Bumetanide 1 mg BIDD IV 02/17/24 18:00 02/20/24 05:38 1 MG Hydroxyzine HCl 10 mg Q6HP PRN PO 02/17/24 09:00 02/20/24 13:49 10 MG Enteral Nutritional Formula 240 ml TIDWM PO 02/18/24 08:00 02/20/24 12:00 240 ML Potassium Bicarbonate 25 meq DAILY PO 02/18/24 10:00 02/20/24 09:53 25 MEQ Apixaban 2.5 mg BID PO 02/18/24 10:00 02/20/24 09:53 2.5 MG objective Gen.: Patient lying in bed in no apparent distress. On supplemental oxygen Head: Normocephalic, atraumatic. Eyes: EOMI/PERRLA. Ears: Normal hearing. Normal anatomy. Neck/trachea: Trachea midline, supple. Nose: Normal external anatomy. Mouth: Moist mucous membranes. Chest: Decreased air entry bilaterally. No wheezing or rhonchi. Cardiovascular: Positive S1, positive S2. Regular rate and rhythm. Abdomen: Positive bowel sounds in all 4 quadrants. Soft, non-tender, non- distended. : Deferred. Rectal: Deferred. Skin: Warm, dry. Intact. Extremities: 2+ radial pulses bilaterally. No lower extremity edema. Neuro: Awake, alert, oriented x3. No gross motor or sensory deficits. Cranial nerves II through XII intact. Gait not assessed. laboratory and microbiology Laboratory Tests 02/20/24 05:36 Test 02/20/24 05:36 Range/Units Serum Glucose 111 H 74-106 mg/dL Assessment/Plan Impression: Acute hypoxic respiratory failure Dependence on supplemental oxygen Acute decompensated systolic heart failure Leukocytosis Hypertension Obesity Events: Remains on supplemental oxygen On 8 LPM Oxymizer Improved O2 requirements Continue bronchodilators Continue antibiotics Anxiolytic PRN anxiety Diurese as tolerated w/ Bumex BID Monitor renal function. Monitor electrolytes. Supplement as necessary. K, mag supplementation Pain control Avoid oversedation Patient is stable for downgrade to telemetry Labs and imaging reviewed. Rest of plan as noted below Plan: Supplemental oxygen Titrate to keep O2 sats above 92%. Continue antibiotics Monitor WBC Monitor blood pressure closely Start Levophed if SBP <90 mmHg Diurese to euvolemia Monitor renal function. Monitor electrolytes. Supplement as necessary. Monitor ins and outs. Cardiology recs appreciated. Anxiolytic PRN anxiety. Diet and lifestyle modifications for weight reduction Obesity - complicates all care DVT prophylaxis. Prognosis: Poor given patient's multiple co-morbidities. Condition: Critical Rest of plan per hospitalist and other consultants. A total of 35 minutes of critical care time was spent reviewing the patient record, examining the patient, making a diagnostic and therapeutic plan, discussing this plan with the medical personnel, following up on diagnostic studies and following the patient for clinical stability excluding any and all procedures. At least 50% of this time was spent in direct, [id number] contact. Thank you, KARI Cruz, for allowing me to participate in this patient's care. Further recommendations will depend on the patient's clinical course. Please do not hesitate to contact me if you have any questions or concerns. This medical document was created using an electronic medical record system with [employer] system. Although these documentations are being carefully reviewed, there may still be some phonetic and typographical changes. The errors are purely typographical, due to imperfection on the software program, and do not reflect any compromise in the patient's medical care. Dietary Evaluation Review Comments: Continue current plan of care Expected Outcomes/Goals: F/U in 3-5 days Plan discussed with: Other (MARIBELL Frey) Critical Care Time(min): 35 LANA PARHAM MD Feb 20, 2024 19:00
[2024-02-21] VITALS (17 sets, daily range): BP systolic 111–126; BP diastolic 40–60; PULSE 59–83; RESP 15–18; TEMP 97.5–98.6; O2SAT 92–99
[2024-02-21 08:16] LABS: Anion Gap 9 (5-15); Carbon Dioxide 28 mmol/L (20-31); Chloride 98 mmol/L (98-107); Potassium 3.6 mmol/L (3.5-5.1)
[2024-02-21 08:17] LABS: Calcium 9.6 mg/dL (8.7-10.4)
[2024-02-21 08:22] LABS: BUN/Creatinine Ratio 17.4 (10.0-20.0); Blood Urea Nitrogen 15 mg/dL (9-23); Glucose 102 mg/dL (74-106)
[2024-02-21 08:37] LABS: Sodium 135 mmol/L (136-145)
--- NOTE | 2024-02-21 15:15 | DVHPN2 ---
Subjective Patient denies any symptoms. Reviewed: Care Plan, H&P, Labs, Medications Changes from previous H/P or p: No Changes General: Per HPI Eyes: No Pain, No Vision change, No Conjunctivae inflammation, No Eyelid inflammation, No Other, No Redness ENT: No Ear pain, No Ear discharge, No Nose pain, No Nose discharge, No Nose congestion, No Mouth pain, No Mouth swelling, No Throat pain, No Throat swelling, No Other Cardiovascular: Other Respiratory: Shortness of breath Gastrointestinal: No Nausea, No Vomiting, No Abdominal Pain, No Diarrhea, No Constipation, No Melena, No Hematochezia, No Other Genitourinary: No Dysuria, No Frequency, No Incontinence, No Hematuria, No Retention, No Other Musculoskeletal: No other, No neck pain, No shoulder pain, No arm pain, No back pain, No hand pain, No leg pain, No foot pain Skin: No Rash, No Lesions, No Jaundice, No Bruising, No Other Objective Vitals Vital Signs Date Time Temp Pulse Resp B/P (MAP) Pulse Ox O2 Delivery O2 Flow Rate FiO2 02/21/24 13:00 97.6 60 16 116/40 (65) 95 97.6 02/21/24 11:52 Oxymizer 4 N/A Intake/Output Intake and Output 02/21/24 07:00 Intake Total 1330 ml Output Total 1300 ml Balance 30 ml Intake Oral 1280 ml IV Total 50 ml Output Urine Total 1300 ml # Bowel Movements 2 General Appearance: Alert, Oriented X3, Cooperative, mild distress HEENT: Atraumatic, PERRLA, EOMI Lungs: Clear to auscultation, Normal air movement Cardiovascular: Normal S1, Normal S2 Abdomen: Normal bowel sounds, Soft, No tenderness, No hepatospenomegaly Musculoskeletal: Normal sensory function, Normal motor function Neuro: Normal gait, Normal speech Skin: Dry, Intact Psych/Mental Status: Mental status NL, Mood NL Medications Current Medications Medications Dose Ordered Sig/Bria Route Start Time Stop Time Status Last Admin Dose Admin Acetaminophen/ Hydrocodone Bitart 1 tab Q4HP PRN PO 02/14/24 06:30 02/21/24 11:21 1 TAB Ondansetron HCl 4 mg Q4HP PRN IV 02/14/24 06:30 02/20/24 03:16 4 MG Acetaminophen 650 mg Q6HP PRN PO 02/14/24 06:30 Morphine Sulfate 2 mg Q4HPRN PRN IV 02/14/24 06:30 02/21/24 10:05 2 MG Nitroglycerin 0.4 mg Q5MINP PRN SL 02/14/24 06:30 Morphine Sulfate 2 mg Q30M PRN IV 02/14/24 06:30 02/18/24 01:31 2 MG Ceftriaxone Sodium 50 ml @ 100 mls/hr DAILY@09 IV 02/15/24 09:00 02/21/24 09:50 100 MLS/HR Albuterol 2.5 mg Q6HWA [facility] 02/14/24 12:00 02/21/24 11:52 2.5 MG Albuterol 2.5 mg Q4HPRN PRN NEB 02/14/24 06:30 Ipratropium [place] 0.5 mg Q6HWA [facility] 02/14/24 12:00 02/21/24 11:51 0.5 MG Ipratropium [place] 0.5 mg Q4HPRN PRN [facility] 02/14/24 06:30 Budesonide 0.5 mg BID [facility] 02/14/24 10:00 02/20/24 19:07 0.5 MG Aspirin 81 mg DAILY PO 02/14/24 10:00 02/21/24 09:58 81 MG Atorvastatin Calcium 40 mg HS PO 02/14/24 22:00 02/20/24 21:44 40 MG Metoprolol Tartrate 12.5 mg BID PO 02/14/24 10:00 02/21/24 10:03 12.5 MG Losartan Potassium 12.5 mg DAILY PO 02/14/24 10:00 02/21/24 10:03 12.5 MG Empaglifozin 10 mg DAILY PO 02/14/24 10:00 02/21/24 09:59 10 MG Spironolactone 25 mg DAILY PO 02/14/24 10:00 02/21/24 09:58 25 MG Citalopram Hydrobromide 20 mg DAILY PO 02/17/24 10:00 02/21/24 09:58 20 MG Magnesium Oxide 400 mg DAILY PO 02/17/24 10:00 02/21/24 09:58 400 MG Bumetanide 1 mg BIDD IV 02/17/24 18:00 02/21/24 05:50 1 MG Hydroxyzine HCl 10 mg Q6HP PRN PO 02/17/24 09:00 02/20/24 13:49 10 MG Enteral Nutritional Formula 240 ml TIDWM PO 02/18/24 08:00 02/21/24 08:00 240 ML Potassium Bicarbonate 25 meq DAILY PO 02/18/24 10:00 02/21/24 09:58 25 MEQ Apixaban 2.5 mg BID PO 02/18/24 10:00 02/21/24 09:59 2.5 MG Laboratory Results Laboratory Tests 02/20/24 05:36 02/21/24 06:50 Chemistry Test 02/21/24 06:50 Calcium Level 9.6 mg/dL (8.7-10.4) Urinalysis Test 02/14/24 14:32 Urine Color Light-yellow (Yellow) Urine Clarity Clear (Clear) Urine pH 6.5 (5.0-9.0) Urine Specific [place] 1.015 (1.001-1.035) Urine Protein 1+ (Negative) H Urine Ketones Negative (Negative) Urine Blood Negative /uL (Negative) Urine Nitrite Negative (Negative) Urine Bilirubin Negative (Negative) Urine Urobilinogen Normal mg/dL (Negative) Urine Leukocyte Esterase Negative /uL (Negative) Urine RBC 1 /hpf (0 - 4) Urine WBC 3 /hpf (0 - 5) Urine Squamous Epithelial Cells Few /hpf (<5) Urine Bacteria None seen /hpf (None Seen) Urine Mucus Few (None Seen) Urine Glucose 4+ mg/dL (Normal) H Microbiology Microbiology Date/Time Source Procedure Growth Status 02/15/24 19:57 Nose MRSA Screen - Final Complete 02/14/24 13:45 Blood Blood Culture - Final NO GROWTH AFTER 5 DAYS OF INCUBATION. Complete Labs and/or images reviewed: Labs reviewed by me, Image(s) reviewed by me Assessment/Plan Assessment/Plan Impression: -acute hypoxic respiratory failure -acute decompensated systolic heart failure -leukocytosis, rule out sepsis -hypothyroidism -dyslipidemia -primary hypertension -acute coronary syndrome -anxiety disorder Plan: -events: Patient currently on 4 L per minute via Oxymizer. Instructed primary nurse to wean O2 and off Oxymizer possible. -room air ABG -continue bronchodilators, Pulmicort, Solu-Medrol -continue antianxiety medication -cardiology consultation: Recommendations reviewed -continue goal-directed medical therapy -PT consultation -transferred to Medical/Surgical floor Total time spent with patient discussing and formulating plan of care: 35 minutes. This medical document was created using an electronic medical record system with [employer] dictation system. Although this document has been carefully reviewed, there may still be some phonetic and typographical errors. These areas are purely typographical due to imperfections of the software programs, and do not reflect any compromise in the patient's medical care Plan discussed with: Patient, Other (RN) My Orders Orders - WILMAR MENDES NP Procedure Category Date Status Time Electrocardigram EKG 02/20/24 Logged 15:33 Date of Service: Feb 21, 2024 Billing Provider: WILMAR MENDES NP Common Visit Codes: [id number] INP/OBS CARE(HIGH) WILMAR MENDES NP Feb 21, 2024 15:15
[2024-02-21 15:59] LABS: Base Excess 3.4 mmol/L (-2.0-3.0)
[2024-02-21] MEDS: NITROGLYCERIN 0.4 MG SL TAB SL PRN (21:52)
--- NOTE | 2024-02-21 22:23 | DVHPN2 ---
Progress Note - Dictate Date Seen: Feb 21, 2024 Medical Necessity Reason Pt with a Central, PICC or Fol: Yes The following are medically ne: Chaudhry Catheter Reason for chaudhry catheter: Strict I&O Subjective Patient seen and examined at bedside. On supplemental oxygen Overnight events reviewed. vital signs Vital Sign Date Time Temp Pulse Resp B/P (MAP) Pulse Ox O2 Delivery O2 Flow Rate FiO2 02/21/24 21:52 119/51 02/21/24 21:47 73 18 02/21/24 18:54 99 02/21/24 18:44 Nasal Cannula* 4 36 02/21/24 17:00 97.5 97.5 Total Intake and Output 02/20/24 02/20/24 02/21/24 15:00 23:00 07:00 Intake Total 50 ml 480 ml 800 ml Output Total 300 ml 1000 ml Balance 50 ml 180 ml -200 ml medications Current Medications Medications Dose Ordered Sig/Bria Route Start Time Stop Time Status Last Admin Dose Admin Acetaminophen/ Hydrocodone Bitart 1 tab Q4HP PRN PO 02/14/24 06:30 02/21/24 20:33 1 TAB Ondansetron HCl 4 mg Q4HP PRN IV 02/14/24 06:30 02/20/24 03:16 4 MG Acetaminophen 650 mg Q6HP PRN PO 02/14/24 06:30 Morphine Sulfate 2 mg Q4HPRN PRN IV 02/14/24 06:30 02/21/24 10:05 2 MG Nitroglycerin 0.4 mg Q5MINP PRN SL 02/14/24 06:30 02/21/24 21:52 0.4 MG Morphine Sulfate 2 mg Q30M PRN IV 02/14/24 06:30 02/21/24 21:47 2 MG Ceftriaxone Sodium 50 ml @ 100 mls/hr DAILY@09 IV 02/15/24 09:00 02/21/24 09:50 100 MLS/HR Albuterol 2.5 mg Q6HWA NEB 02/14/24 12:00 02/21/24 18:49 2.5 MG Albuterol 2.5 mg Q4HPRN PRN NEB 02/14/24 06:30 Ipratropium [place] 0.5 mg Q6HWA NEB 02/14/24 12:00 02/21/24 18:49 0.5 MG Ipratropium [place] 0.5 mg Q4HPRN PRN NEB 02/14/24 06:30 Budesonide 0.5 mg BID NEB 02/14/24 10:00 02/21/24 18:49 0.5 MG Aspirin 81 mg DAILY PO 02/14/24 10:00 02/21/24 09:58 81 MG Atorvastatin Calcium 40 mg HS PO 02/14/24 22:00 02/20/24 21:44 40 MG Metoprolol Tartrate 12.5 mg BID PO 02/14/24 10:00 02/21/24 10:03 12.5 MG Losartan Potassium 12.5 mg DAILY PO 02/14/24 10:00 02/21/24 10:03 12.5 MG Empaglifozin 10 mg DAILY PO 02/14/24 10:00 02/21/24 09:59 10 MG Spironolactone 25 mg DAILY PO 02/14/24 10:00 02/21/24 09:58 25 MG Citalopram Hydrobromide 20 mg DAILY PO 02/17/24 10:00 02/21/24 09:58 20 MG Magnesium Oxide 400 mg DAILY PO 02/17/24 10:00 02/21/24 09:58 400 MG Bumetanide 1 mg BIDD IV 02/17/24 18:00 02/21/24 05:50 1 MG Hydroxyzine HCl 10 mg Q6HP PRN PO 02/17/24 09:00 02/20/24 13:49 10 MG Enteral Nutritional Formula 240 ml TIDWM PO 02/18/24 08:00 02/20/24 18:00 240 ML Potassium Bicarbonate 25 meq DAILY PO 02/18/24 10:00 02/21/24 09:58 25 MEQ Apixaban 2.5 mg BID PO 02/18/24 10:00 02/21/24 09:59 2.5 MG objective Gen.: Patient lying in bed in no apparent distress. On supplemental oxygen Head: Normocephalic, atraumatic. Eyes: EOMI/PERRLA. Ears: Normal hearing. Normal anatomy. Neck/trachea: Trachea midline, supple. Nose: Normal external anatomy. Mouth: Moist mucous membranes. Chest: Decreased air entry bilaterally. No wheezing or rhonchi. Cardiovascular: Positive S1, positive S2. Regular rate and rhythm. Abdomen: Positive bowel sounds in all 4 quadrants. Soft, non-tender, non- distended. : Deferred. Rectal: Deferred. Skin: Warm, dry. Intact. Extremities: 2+ radial pulses bilaterally. No lower extremity edema. Neuro: Awake, alert, oriented x3. No gross motor or sensory deficits. Cranial nerves II through XII intact. Gait not assessed. laboratory and microbiology Laboratory Tests 02/21/24 06:50 02/20/24 05:36 Test 02/21/24 06:50 Range/Units Serum Glucose 102 74-106 mg/dL Assessment/Plan Impression: Acute hypoxic respiratory failure Dependence on supplemental oxygen Acute decompensated systolic heart failure Leukocytosis Hypertension Obesity Events: Remains on supplemental oxygen On 4 LPM Oxymizer (down from 8 LPM) Improved O2 requirements On spironolactone Continue bronchodilators Continue antibiotics Incentive spirometry Anxiolytic PRN anxiety Monitor renal function. Monitor electrolytes. Supplement as necessary. K, mag supplementation Pain control Avoid oversedation Labs and imaging reviewed. Rest of plan as noted below Plan: Supplemental oxygen Titrate to keep O2 sats above 92%. Continue antibiotics Monitor WBC Monitor blood pressure closely Start Levophed if SBP <90 mmHg Monitor renal function. Monitor electrolytes. Supplement as necessary. Monitor ins and outs. Cardiology recs appreciated. Anxiolytic PRN anxiety. Diet and lifestyle modifications for weight reduction Obesity - complicates all care DVT prophylaxis. Prognosis: Poor given patient's multiple co-morbidities. Rest of plan per hospitalist and other consultants. Thank you, KARI Cruz, for allowing me to participate in this patient's care. Further recommendations will depend on the patient's clinical course. Please do not hesitate to contact me if you have any questions or concerns. This medical document was created using an electronic medical record system with [employer] dictation system. Although these documentations are being carefully reviewed, there may still be some phonetic and typographical changes. The errors are purely typographical, due to imperfection on the software program, and do not reflect any compromise in the patient's medical care. Dietary Evaluation Review Comments: Continue current plan of care Expected Outcomes/Goals: F/U in 3-5 days Plan discussed with: Patient, Other (MARIBELL Gunter) LANA PARHAM MD Feb 21, 2024 22:23
[2024-02-22] VITALS (17 sets, daily range): BP systolic 84–129; BP diastolic 44–67; PULSE 67–92; RESP 15–19; TEMP 97.6–98.3; O2SAT 90–98
--- NOTE | 2024-02-22 09:42 | ECG ---
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
[2024-02-22 10:25] LABS: Anion Gap 5 (5-15); Carbon Dioxide 31 mmol/L (20-31); Potassium 3.9 mmol/L (3.5-5.1)
[2024-02-22 10:26] LABS: Calcium 9.9 mg/dL (8.7-10.4)
[2024-02-22 10:31] LABS: Blood Urea Nitrogen 12 mg/dL (9-23)
[2024-02-22 10:33] LABS: Chloride 94 mmol/L (98-107); Glucose 156 mg/dL (74-106); Sodium 130 mmol/L (136-145)
[2024-02-22 10:38] LABS: BUN/Creatinine Ratio 12.8 (10.0-20.0)
--- NOTE | 2024-02-22 12:26 | DVHPN2 ---
Subjective Patient denies any symptoms. Reviewed: Care Plan, H&P, Labs, Medications Changes from previous H/P or p: No Changes General: Per HPI Eyes: No Pain, No Vision change, No Conjunctivae inflammation, No Eyelid inflammation, No Other, No Redness ENT: No Ear pain, No Ear discharge, No Nose pain, No Nose discharge, No Nose congestion, No Mouth pain, No Mouth swelling, No Throat pain, No Throat swelling, No Other Cardiovascular: Other Respiratory: Shortness of breath Gastrointestinal: No Nausea, No Vomiting, No Abdominal Pain, No Diarrhea, No Constipation, No Melena, No Hematochezia, No Other Genitourinary: No Dysuria, No Frequency, No Incontinence, No Hematuria, No Retention, No Other Musculoskeletal: No other, No neck pain, No shoulder pain, No arm pain, No back pain, No hand pain, No leg pain, No foot pain Skin: No Rash, No Lesions, No Jaundice, No Bruising, No Other Objective Vitals Vital Signs Date Time Temp Pulse Resp B/P (MAP) Pulse Ox O2 Delivery O2 Flow Rate FiO2 02/22/24 11:52 67 15 97 02/22/24 11:44 Nasal Cannula* 4 36 02/22/24 09:47 114/45 02/22/24 09:05 98.1 98.1 Intake/Output Intake and Output 02/22/24 07:00 Intake Total 1300 ml Output Total 1500 ml Balance -200 ml Intake Oral 1250 ml IV Total 50 ml Output Urine Total 1500 ml General Appearance: Alert, Oriented X3, Cooperative, mild distress HEENT: Atraumatic, PERRLA, EOMI Lungs: Clear to auscultation, Normal air movement Cardiovascular: Normal S1, Normal S2 Abdomen: Normal bowel sounds, Soft, No tenderness, No hepatospenomegaly Musculoskeletal: Normal sensory function, Normal motor function Neuro: Normal gait, Normal speech Skin: Dry, Intact Psych/Mental Status: Mental status NL, Mood NL Medications Current Medications Medications Dose Ordered Sig/Bria Route Start Time Stop Time Status Last Admin Dose Admin Acetaminophen/ Hydrocodone Bitart 1 tab Q4HP PRN PO 02/14/24 06:30 02/21/24 20:33 1 TAB Ondansetron HCl 4 mg Q4HP PRN IV 02/14/24 06:30 02/20/24 03:16 4 MG Acetaminophen 650 mg Q6HP PRN PO 02/14/24 06:30 Morphine Sulfate 2 mg Q4HPRN PRN IV 02/14/24 06:30 02/21/24 10:05 2 MG Nitroglycerin 0.4 mg Q5MINP PRN SL 02/14/24 06:30 02/21/24 21:52 0.4 MG Morphine Sulfate 2 mg Q30M PRN IV 02/14/24 06:30 02/22/24 03:02 2 MG Ceftriaxone Sodium 50 ml @ 100 mls/hr DAILY@09 IV 02/15/24 09:00 02/22/24 09:45 100 MLS/HR Albuterol 2.5 mg Q6HWA NEB 02/14/24 12:00 02/22/24 11:44 2.5 MG Albuterol 2.5 mg Q4HPRN PRN NEB 02/14/24 06:30 Ipratropium [place] 0.5 mg Q6HWA [facility] 02/14/24 12:00 02/22/24 11:44 0.5 MG Ipratropium [place] 0.5 mg Q4HPRN PRN NEB 02/14/24 06:30 Budesonide 0.5 mg BID NEB 02/14/24 10:00 02/22/24 06:54 0.5 MG Aspirin 81 mg DAILY PO 02/14/24 10:00 02/22/24 09:45 81 MG Atorvastatin Calcium 40 mg HS PO 02/14/24 22:00 02/21/24 23:57 40 MG Metoprolol Tartrate 12.5 mg BID PO 02/14/24 10:00 02/22/24 09:47 12.5 MG Losartan Potassium 12.5 mg DAILY PO 02/14/24 10:00 02/22/24 09:47 12.5 MG Empaglifozin 10 mg DAILY PO 02/14/24 10:00 02/22/24 09:47 10 MG Spironolactone 25 mg DAILY PO 02/14/24 10:00 02/22/24 09:46 25 MG Citalopram Hydrobromide 20 mg DAILY PO 02/17/24 10:00 02/22/24 09:46 20 MG Magnesium Oxide 400 mg DAILY PO 02/17/24 10:00 02/22/24 09:45 400 MG Bumetanide 1 mg BIDD IV 02/17/24 18:00 02/22/24 03:31 1 MG Hydroxyzine HCl 10 mg Q6HP PRN PO 02/17/24 09:00 02/20/24 13:49 10 MG Enteral Nutritional Formula 240 ml TIDWM PO 02/18/24 08:00 02/20/24 18:00 240 ML Potassium Bicarbonate 25 meq DAILY PO 02/18/24 10:00 02/22/24 09:45 25 MEQ Apixaban 2.5 mg BID PO 02/18/24 10:00 02/22/24 09:46 2.5 MG Laboratory Results Laboratory Tests 02/20/24 05:36 02/22/24 09:10 Chemistry Test 02/21/24 22:57 02/22/24 09:10 Magnesium Level 2.3 mg/dL (1.6-2.6) Calcium Level 9.9 mg/dL (8.7-10.4) Urinalysis Test 02/14/24 14:32 Urine Color Light-yellow (Yellow) Urine Clarity Clear (Clear) Urine pH 6.5 (5.0-9.0) Urine Specific [place] 1.015 (1.001-1.035) Urine Protein 1+ (Negative) H Urine Ketones Negative (Negative) Urine Blood Negative /uL (Negative) Urine Nitrite Negative (Negative) Urine Bilirubin Negative (Negative) Urine Urobilinogen Normal mg/dL (Negative) Urine Leukocyte Esterase Negative /uL (Negative) Urine RBC 1 /hpf (0 - 4) Urine WBC 3 /hpf (0 - 5) Urine Squamous Epithelial Cells Few /hpf (<5) Urine Bacteria None seen /hpf (None Seen) Urine Mucus Few (None Seen) Urine Glucose 4+ mg/dL (Normal) H Blood Gas Results Test 02/21/24 15:53 Arterial Blood pH 7.458 (7.350-7.450) FiO2 % 21.0 Microbiology Microbiology Date/Time Source Procedure Growth Status 02/15/24 19:57 Nose MRSA Screen - Final Complete 02/14/24 13:45 Blood Blood Culture - Final NO GROWTH AFTER 5 DAYS OF INCUBATION. Complete Labs and/or images reviewed: Labs reviewed by me, Image(s) reviewed by me Assessment/Plan Assessment/Plan Impression: -acute hypoxic respiratory failure -acute decompensated systolic heart failure -leukocytosis, rule out sepsis -hypothyroidism -dyslipidemia -primary hypertension -acute coronary syndrome -anxiety disorder Plan: Events: pt on 4L NC -continue bronchodilators, Pulmicort, Solu-Medrol -continue antianxiety medication -cardiology consultation: Recommendations reviewed -continue goal-directed medical therapy -PT consultation -Chest x ray Total time spent with patient discussing and formulating plan of care: 35 minutes. This medical document was created using an electronic medical record system with [employer] dictation system. Although this document has been carefully reviewed, there may still be some phonetic and typographical errors. These areas are purely typographical due to imperfections of the software programs, and do not reflect any compromise in the patient's medical care Plan discussed with: Patient, Other (RN) My Orders Orders - WILMAR MENDES NP Procedure Category Date Status Time Abg W/ Co-Ox RT 02/21/24 Logged 15:13 Transfer Orders XFER 02/21/24 Transmitted 15:15 Chest Xray 1 View XY 02/22/24 Transmitted 12:22 Date of Service: Feb 22, 2024 Billing Provider: WILMAR MENDES NP Common Visit Codes: [id number] INP/OBS CARE(HIGH) WILMAR MENDES NP Feb 22, 2024 12:26
--- NOTE | 2024-02-22 12:41 | ECG ---
[facility] Test Date: 2024-02-22 Test Time: 03:30:49 Pat Name: SYL CULLEN Department: Respiratoy Room: 0219 B Gender: F Clinical Study Manager: MATTHIAS : 1940 Requested By: WILMAR MENDES Order Number: [id number] Reading MD: Brian Stanley Measurements Intervals [place] Rate: 85 P: 68 KS: 161 QRS: -6 QRSD: 83 T: -3 QT: 366 QTc: 436 Interpretive Statements Sinus rhythm Nonspecific repol abnormality diffuse leads Baseline wander in lead(s) V1 Electronically Signed On 02-23-2024 13:31:02 PST by Brian Stanley Please click the below link to view image of tracing.
--- NOTE | 2024-02-22 12:43 | ECG ---
[facility] Test Date: 2024-02-21 Test Time: 21:51:55 Pat Name: SYL CULLEN Department: Respiratoy Room: 0219 B Gender: F Mine Deputy: DONTRELL : 1940 Requested By: CHRISTIAN MENDENHALL Order Number: [id number] Reading MD: Brian Stanley Measurements Intervals [place] Rate: 80 P: 54 AL: 151 QRS: 8 QRSD: 87 T: 73 QT: 394 QTc: 455 Interpretive Statements Sinus rhythm Supraventricular bigeminy Borderline repolarization abnormality Electronically Signed On 02-23-2024 13:30:35 PST by Brian Stanley Please click the below link to view image of tracing.
--- NOTE | 2024-02-22 13:02 | DVH ---
EXAM: XY CHEST XRAY 1 VIEW Indication: chf Technique: Single frontal view of the chest was obtained Comparison: None FINDINGS: Lines and Tubes: None Lungs: Bibasilar opacities. Pleura: No effusion. No pneumothorax. Cardiomediastinal contours: Cardiomegaly. Bones: No acute osseous abnormality. IMPRESSION: Cardiomegaly. Bibasilar opacities.
--- NOTE | 2024-02-22 22:19 | DVHPN2 ---
Progress Note - Dictate Date Seen: Feb 22, 2024 Medical Necessity Reason Pt with a Central, PICC or Fol: Yes The following are medically ne: Chaudhry Catheter Reason for chaudhry catheter: Strict I&O Subjective Patient seen and examined at bedside. On supplemental oxygen Overnight events reviewed. vital signs Vital Sign Date Time Temp Pulse Resp B/P (MAP) Pulse Ox O2 Delivery O2 Flow Rate FiO2 02/22/24 19:32 78 16 98 02/22/24 19:18 Mask 4.0 02/22/24 19:18 50 02/22/24 18:32 121/43 02/22/24 17:00 98.3 98.3 Total Intake and Output 02/21/24 02/21/24 02/22/24 15:00 23:00 07:00 Intake Total 50 ml 650 ml 600 ml Output Total 750 ml 750 ml Balance 50 ml -100 ml -150 ml medications Current Medications Medications Dose Ordered Sig/Bria Route Start Time Stop Time Status Last Admin Dose Admin Acetaminophen/ Hydrocodone Bitart 1 tab Q4HP PRN PO 02/14/24 06:30 02/22/24 21:19 1 TAB Ondansetron HCl 4 mg Q4HP PRN IV 02/14/24 06:30 02/20/24 03:16 4 MG Acetaminophen 650 mg Q6HP PRN PO 02/14/24 06:30 Morphine Sulfate 2 mg Q4HPRN PRN IV 02/14/24 06:30 02/21/24 10:05 2 MG Nitroglycerin 0.4 mg Q5MINP PRN SL 02/14/24 06:30 02/21/24 21:52 0.4 MG Morphine Sulfate 2 mg Q30M PRN IV 02/14/24 06:30 02/22/24 03:02 2 MG Ceftriaxone Sodium 50 ml @ 100 mls/hr DAILY@09 IV 02/15/24 09:00 02/22/24 09:45 100 MLS/HR Albuterol 2.5 mg Q6HWA NEB 02/14/24 12:00 02/22/24 19:18 2.5 MG Albuterol 2.5 mg Q4HPRN PRN NEB 02/14/24 06:30 Ipratropium [place] 0.5 mg Q6HWA NEB 02/14/24 12:00 02/22/24 19:17 0.5 MG Ipratropium [place] 0.5 mg Q4HPRN PRN NEB 02/14/24 06:30 Budesonide 0.5 mg BID NEB 02/14/24 10:00 02/22/24 19:18 0.5 MG Aspirin 81 mg DAILY PO 02/14/24 10:00 02/22/24 09:45 81 MG Atorvastatin Calcium 40 mg HS PO 02/14/24 22:00 02/22/24 21:19 40 MG Metoprolol Tartrate 12.5 mg BID PO 02/14/24 10:00 02/22/24 09:47 12.5 MG Losartan Potassium 12.5 mg DAILY PO 02/14/24 10:00 02/22/24 09:47 12.5 MG Empaglifozin 10 mg DAILY PO 02/14/24 10:00 02/22/24 09:47 10 MG Spironolactone 25 mg DAILY PO 02/14/24 10:00 02/22/24 09:46 25 MG Citalopram Hydrobromide 20 mg DAILY PO 02/17/24 10:00 02/22/24 09:46 20 MG Magnesium Oxide 400 mg DAILY PO 02/17/24 10:00 02/22/24 09:45 400 MG Bumetanide 1 mg BIDD IV 02/17/24 18:00 02/22/24 18:32 1 MG Hydroxyzine HCl 10 mg Q6HP PRN PO 02/17/24 09:00 02/20/24 13:49 10 MG Enteral Nutritional Formula 240 ml TIDWM PO 02/18/24 08:00 02/20/24 18:00 240 ML Potassium Bicarbonate 25 meq DAILY PO 02/18/24 10:00 02/22/24 09:45 25 MEQ Apixaban 2.5 mg BID PO 02/18/24 10:00 02/22/24 21:19 2.5 MG objective Gen.: Patient lying in bed in no apparent distress. On supplemental oxygen Head: Normocephalic, atraumatic. Eyes: EOMI/PERRLA. Ears: Normal hearing. Normal anatomy. Neck/trachea: Trachea midline, supple. Nose: Normal external anatomy. Mouth: Moist mucous membranes. Chest: Decreased air entry bilaterally. No wheezing or rhonchi. Cardiovascular: Positive S1, positive S2. Regular rate and rhythm. Abdomen: Positive bowel sounds in all 4 quadrants. Soft, non-tender, non- distended. : Deferred. Rectal: Deferred. Skin: Warm, dry. Intact. Extremities: 2+ radial pulses bilaterally. No lower extremity edema. Neuro: Awake, alert, oriented x3. No gross motor or sensory deficits. Cranial nerves II through XII intact. Gait not assessed. laboratory and microbiology Laboratory Tests 02/22/24 09:10 02/20/24 05:36 Test 02/22/24 09:10 Range/Units Serum Glucose 156 H 74-106 mg/dL Assessment/Plan Impression: Acute hypoxic respiratory failure Dependence on supplemental oxygen Acute decompensated systolic heart failure Leukocytosis Hypertension Obesity Events: Remains on supplemental oxygen On 4 LPM NC, humidifier - tapered to Oxymizer Continue to taper as tolerated Continue antibiotics Continue bronchodilators Incentive spirometry Continue Aldactone Anxiolytic PRN anxiety Diurese w/ Bumex Monitor renal function. Monitor electrolytes. Supplement as necessary. K, mag supplementation Pain control Avoid oversedation Labs and imaging reviewed. Rest of plan as noted below Plan: Supplemental oxygen Titrate to keep O2 sats above 92%. Continue antibiotics Monitor WBC Monitor blood pressure closely Start Levophed if SBP <90 mmHg Monitor renal function. Monitor electrolytes. Supplement as necessary. Monitor ins and outs. Cardiology recs appreciated. Anxiolytic PRN anxiety. Diet and lifestyle modifications for weight reduction Obesity - complicates all care DVT prophylaxis. Prognosis: Poor given patient's multiple co-morbidities. Rest of plan per hospitalist and other consultants. Thank you, KARI Cruz, for allowing me to participate in this patient's care. Further recommendations will depend on the patient's clinical course. Please do not hesitate to contact me if you have any questions or concerns. This medical document was created using an electronic medical record system with [employer] dictation system. Although these documentations are being carefully reviewed, there may still be some phonetic and typographical changes. The errors are purely typographical, due to imperfection on the software program, and do not reflect any compromise in the patient's medical care. Dietary Evaluation Review Comments: Continue current plan of care Expected Outcomes/Goals: F/U in 3-5 days Plan discussed with: Patient, Other (MARIBELL Harris) LANA PARHAM MD Feb 22, 2024 22:19
[2024-02-22] MEDS: MELATONIN 5 MG TAB PO ONE (23:27)
[2024-02-23] VITALS (15 sets, daily range): BP systolic 109–156; BP diastolic 48–77; PULSE 63–91; RESP 16–18; TEMP 98–98.8; O2SAT 90–100
--- NOTE | 2024-02-23 13:26 | DVHPN2 ---
Subjective Patient denies any symptoms. Reviewed: Care Plan, H&P, Labs, Medications Changes from previous H/P or p: No Changes General: Per HPI Eyes: No Pain, No Vision change, No Conjunctivae inflammation, No Eyelid inflammation, No Other, No Redness ENT: No Ear pain, No Ear discharge, No Nose pain, No Nose discharge, No Nose congestion, No Mouth pain, No Mouth swelling, No Throat pain, No Throat swelling, No Other Cardiovascular: Other Respiratory: Shortness of breath Gastrointestinal: No Nausea, No Vomiting, No Abdominal Pain, No Diarrhea, No Constipation, No Melena, No Hematochezia, No Other Genitourinary: No Dysuria, No Frequency, No Incontinence, No Hematuria, No Retention, No Other Musculoskeletal: No other, No neck pain, No shoulder pain, No arm pain, No back pain, No hand pain, No leg pain, No foot pain Skin: No Rash, No Lesions, No Jaundice, No Bruising, No Other Objective Vitals Vital Signs Date Time Temp Pulse Resp B/P (MAP) Pulse Ox O2 Delivery O2 Flow Rate FiO2 02/23/24 12:32 63 16 93 02/23/24 12:27 98.2 156/48 (84) 98.2 02/23/24 12:26 Oxymizer 3.0 02/23/24 12:26 N/A Intake/Output Intake and Output 02/23/24 07:00 Intake Total 1680 ml Output Total 1500 ml Balance 180 ml Intake Oral 1630 ml IV Total 50 ml Output Urine Total 1500 ml # Bowel Movements 4 General Appearance: Alert, Oriented X3, Cooperative, mild distress HEENT: Atraumatic, PERRLA, EOMI Lungs: Clear to auscultation, Normal air movement Cardiovascular: Normal S1, Normal S2 Abdomen: Normal bowel sounds, Soft, No tenderness, No hepatospenomegaly Musculoskeletal: Normal sensory function, Normal motor function Neuro: Normal gait, Normal speech Skin: Dry, Intact Psych/Mental Status: Mental status NL, Mood NL Medications Current Medications Medications Dose Ordered Sig/Bria Route Start Time Stop Time Status Last Admin Dose Admin Acetaminophen/ Hydrocodone Bitart 1 tab Q4HP PRN PO 02/14/24 06:30 02/23/24 09:43 1 TAB Ondansetron HCl 4 mg Q4HP PRN IV 02/14/24 06:30 02/20/24 03:16 4 MG Acetaminophen 650 mg Q6HP PRN PO 02/14/24 06:30 Morphine Sulfate 2 mg Q4HPRN PRN IV 02/14/24 06:30 02/21/24 10:05 2 MG Nitroglycerin 0.4 mg Q5MINP PRN SL 02/14/24 06:30 02/21/24 21:52 0.4 MG Morphine Sulfate 2 mg Q30M PRN IV 02/14/24 06:30 02/22/24 03:02 2 MG Ceftriaxone Sodium 50 ml @ 100 mls/hr DAILY@09 IV 02/15/24 09:00 02/23/24 08:29 100 MLS/HR Albuterol 2.5 mg Q6HWA NEB 02/14/24 12:00 02/23/24 12:26 2.5 MG Albuterol 2.5 mg Q4HPRN PRN NEB 02/14/24 06:30 Ipratropium [place] 0.5 mg Q6HWA NEB 02/14/24 12:00 02/23/24 12:26 0.5 MG Ipratropium [place] 0.5 mg Q4HPRN PRN NEB 02/14/24 06:30 Budesonide 0.5 mg BID NEB 02/14/24 10:00 02/23/24 06:46 0.5 MG Aspirin 81 mg DAILY PO 02/14/24 10:00 02/23/24 09:41 81 MG Atorvastatin Calcium 40 mg HS PO 02/14/24 22:00 02/22/24 21:19 40 MG Metoprolol Tartrate 12.5 mg BID PO 02/14/24 10:00 02/23/24 09:42 12.5 MG Losartan Potassium 12.5 mg DAILY PO 02/14/24 10:00 02/23/24 09:41 12.5 MG Empaglifozin 10 mg DAILY PO 02/14/24 10:00 02/23/24 09:43 10 MG Spironolactone 25 mg DAILY PO 02/14/24 10:00 02/23/24 09:42 25 MG Citalopram Hydrobromide 20 mg DAILY PO 02/17/24 10:00 02/23/24 09:43 20 MG Magnesium Oxide 400 mg DAILY PO 02/17/24 10:00 02/23/24 09:41 400 MG Bumetanide 1 mg BIDD IV 02/17/24 18:00 02/23/24 05:12 1 MG Hydroxyzine HCl 10 mg Q6HP PRN PO 02/17/24 09:00 02/20/24 13:49 10 MG Enteral Nutritional Formula 240 ml TIDWM PO 02/18/24 08:00 02/20/24 18:00 240 ML Potassium Bicarbonate 25 meq DAILY PO 02/18/24 10:00 02/23/24 09:40 25 MEQ Apixaban 2.5 mg BID PO 02/18/24 10:00 02/23/24 09:41 2.5 MG Laboratory Results Laboratory Tests 02/20/24 05:36 02/22/24 09:10 Urinalysis Test 02/14/24 14:32 Urine Color Light-yellow (Yellow) Urine Clarity Clear (Clear) Urine pH 6.5 (5.0-9.0) Urine Specific [place] 1.015 (1.001-1.035) Urine Protein 1+ (Negative) H Urine Ketones Negative (Negative) Urine Blood Negative /uL (Negative) Urine Nitrite Negative (Negative) Urine Bilirubin Negative (Negative) Urine Urobilinogen Normal mg/dL (Negative) Urine Leukocyte Esterase Negative /uL (Negative) Urine RBC 1 /hpf (0 - 4) Urine WBC 3 /hpf (0 - 5) Urine Squamous Epithelial Cells Few /hpf (<5) Urine Bacteria None seen /hpf (None Seen) Urine Mucus Few (None Seen) Urine Glucose 4+ mg/dL (Normal) H Microbiology Microbiology Date/Time Source Procedure Growth Status 02/15/24 19:57 Nose MRSA Screen - Final Complete 02/14/24 13:45 Blood Blood Culture - Final NO GROWTH AFTER 5 DAYS OF INCUBATION. Complete Labs and/or images reviewed: Labs reviewed by me, Image(s) reviewed by me Assessment/Plan Assessment/Plan Impression: -acute hypoxic respiratory failure -acute decompensated systolic heart failure -leukocytosis, rule out sepsis -hypothyroidism -dyslipidemia -primary hypertension -acute coronary syndrome -anxiety disorder Plan: Events: pt decreased to Oxymizer at 4Lpm -continue bronchodilators, Pulmicort, Solu-Medrol -continue antianxiety medication -cardiology consultation: Recommendations reviewed -continue goal-directed medical therapy -PT consultation -Chest x ray Total time spent with patient discussing and formulating plan of care: 35 minutes. This medical document was created using an electronic medical record system with [employer] dictation system. Although this document has been carefully reviewed, there may still be some phonetic and typographical errors. These areas are purely typographical due to imperfections of the software programs, and do not reflect any compromise in the patient's medical care Plan discussed with: Patient, Other (RN) My Orders Orders - WILMAR MENDES NP Procedure Category Date Status Time Cardiac DIET 02/22/24 Transmitted Diet-2gna,Lofat,Lochol Dinner Date of Service: Feb 23, 2024 Billing Provider: WILMAR MENDES NP Common Visit Codes: [id number] INP/OBS CARE(HIGH) WILMAR MENDES NP Feb 23, 2024 13:26
--- NOTE | 2024-02-23 22:26 | DVHPN2 ---
Progress Note - Dictate Date Seen: Feb 23, 2024 Medical Necessity Reason Pt with a Central, PICC or Fol: Yes The following are medically ne: Chaudhry Catheter Reason for chaudhry catheter: Strict I&O Subjective Patient seen and examined at bedside. On supplemental oxygen Overnight events reviewed. vital signs Vital Sign Date Time Temp Pulse Resp B/P (MAP) Pulse Ox O2 Delivery O2 Flow Rate FiO2 02/23/24 22:20 91 127/66 02/23/24 20:00 Nasal Cannula* 3 32 02/23/24 19:35 18 95 02/23/24 16:58 98.0 98.0 Total Intake and Output 02/22/24 02/22/24 02/23/24 15:00 23:00 07:00 Intake Total 50 ml 1380 ml 250 ml Output Total 700 ml 800 ml Balance 50 ml 680 ml -550 ml medications Current Medications Medications Dose Ordered Sig/Bria Route Start Time Stop Time Status Last Admin Dose Admin Acetaminophen/ Hydrocodone Bitart 1 tab Q4HP PRN PO 02/14/24 06:30 02/23/24 09:43 1 TAB Ondansetron HCl 4 mg Q4HP PRN IV 02/14/24 06:30 02/20/24 03:16 4 MG Acetaminophen 650 mg Q6HP PRN PO 02/14/24 06:30 Morphine Sulfate 2 mg Q4HPRN PRN IV 02/14/24 06:30 02/21/24 10:05 2 MG Nitroglycerin 0.4 mg Q5MINP PRN SL 02/14/24 06:30 02/21/24 21:52 0.4 MG Morphine Sulfate 2 mg Q30M PRN IV 02/14/24 06:30 02/22/24 03:02 2 MG Ceftriaxone Sodium 50 ml @ 100 mls/hr DAILY@09 IV 02/15/24 09:00 02/23/24 08:29 100 MLS/HR Albuterol 2.5 mg Q6HWA NEB 02/14/24 12:00 02/23/24 19:12 2.5 MG Albuterol 2.5 mg Q4HPRN PRN NEB 02/14/24 06:30 Ipratropium [place] 0.5 mg Q6HWA NEB 02/14/24 12:00 02/23/24 19:12 0.5 MG Ipratropium [place] 0.5 mg Q4HPRN PRN NEB 02/14/24 06:30 Budesonide 0.5 mg BID NEB 02/14/24 10:00 02/23/24 19:12 0.5 MG Aspirin 81 mg DAILY PO 02/14/24 10:00 02/23/24 09:41 81 MG Atorvastatin Calcium 40 mg HS PO 02/14/24 22:00 02/23/24 22:20 40 MG Metoprolol Tartrate 12.5 mg BID PO 02/14/24 10:00 02/23/24 22:20 12.5 MG Losartan Potassium 12.5 mg DAILY PO 02/14/24 10:00 02/23/24 09:41 12.5 MG Empaglifozin 10 mg DAILY PO 02/14/24 10:00 02/23/24 09:43 10 MG Spironolactone 25 mg DAILY PO 02/14/24 10:00 02/23/24 09:42 25 MG Citalopram Hydrobromide 20 mg DAILY PO 02/17/24 10:00 02/23/24 09:43 20 MG Magnesium Oxide 400 mg DAILY PO 02/17/24 10:00 02/23/24 09:41 400 MG Bumetanide 1 mg BIDD IV 02/17/24 18:00 02/23/24 17:52 1 MG Hydroxyzine HCl 10 mg Q6HP PRN PO 02/17/24 09:00 02/20/24 13:49 10 MG Enteral Nutritional Formula 240 ml TIDWM PO 02/18/24 08:00 02/20/24 18:00 240 ML Potassium Bicarbonate 25 meq DAILY PO 02/18/24 10:00 02/23/24 09:40 25 MEQ Apixaban 2.5 mg BID PO 02/18/24 10:00 02/23/24 22:19 2.5 MG objective Gen.: Patient lying in bed in no apparent distress. On supplemental oxygen Head: Normocephalic, atraumatic. Eyes: EOMI/PERRLA. Ears: Normal hearing. Normal anatomy. Neck/trachea: Trachea midline, supple. Nose: Normal external anatomy. Mouth: Moist mucous membranes. Chest: Decreased air entry bilaterally. No wheezing or rhonchi. Cardiovascular: Positive S1, positive S2. Regular rate and rhythm. Abdomen: Positive bowel sounds in all 4 quadrants. Soft, non-tender, non- distended. : Deferred. Rectal: Deferred. Skin: Warm, dry. Intact. Extremities: 2+ radial pulses bilaterally. No lower extremity edema. Neuro: Awake, alert, oriented x3. No gross motor or sensory deficits. Cranial nerves II through XII intact. Gait not assessed. laboratory and microbiology Laboratory Tests 02/22/24 09:10 02/20/24 05:36 Test 02/22/24 09:10 Range/Units Serum Glucose 156 H 74-106 mg/dL Assessment/Plan Impression: Acute hypoxic respiratory failure Dependence on supplemental oxygen Acute decompensated systolic heart failure Leukocytosis Hypertension Obesity Events: Remains on supplemental oxygen On 3 LPM Oxymizer Continue to taper as tolerated Pt had epistaxis yesterday - improved. Continue antibiotics Continue bronchodilators Incentive spirometry Continue Aldactone Anxiolytic PRN anxiety Diurese w/ Bumex as tolerated Monitor renal function. Monitor electrolytes. Supplement as necessary. Pain control Avoid oversedation Labs and imaging reviewed. Rest of plan as noted below Plan: Supplemental oxygen Titrate to keep O2 sats above 92%. Continue antibiotics Monitor WBC Monitor blood pressure closely Start Levophed if SBP <90 mmHg Monitor renal function. Monitor electrolytes. Supplement as necessary. Monitor ins and outs. Cardiology recs appreciated. Anxiolytic PRN anxiety. Diet and lifestyle modifications for weight reduction Obesity - complicates all care DVT prophylaxis. Prognosis: Poor given patient's multiple co-morbidities. Rest of plan per hospitalist and other consultants. Thank you, KARI Cruz, for allowing me to participate in this patient's care. Further recommendations will depend on the patient's clinical course. Please do not hesitate to contact me if you have any questions or concerns. This medical document was created using an electronic medical record system with [employer] dictation system. Although these documentations are being carefully reviewed, there may still be some phonetic and typographical changes. The errors are purely typographical, due to imperfection on the software program, and do not reflect any compromise in the patient's medical care. Dietary Evaluation Review Comments: Continue current plan of care Expected Outcomes/Goals: F/U in 3-5 days Plan discussed with: Patient, Other (MARIBELL Denson) LANA PARHAM MD Feb 23, 2024 22:26
[2024-02-24] VITALS (18 sets, daily range): BP systolic 92–127; BP diastolic 43–71; PULSE 63–80; RESP 15–20; TEMP 98.1–98.8; O2SAT 91–99
--- NOTE | 2024-02-24 14:13 | DVHDS2 ---
Discharge Summary Date of Admission Feb 14, 2024 at 06:20 Date of Discharge: Feb 24, 2024 Admitting Diagnosis Acute systolic heart failure Labs/Diagnostic Data: Laboratory Results Test 02/22/24 09:10 02/21/24 22:57 02/21/24 15:53 02/20/24 05:36 Sodium Level 130 mmol/L (136-145) Potassium Level 3.9 mmol/L (3.5-5.1) Chloride Level 94 mmol/L (98-107) Carbon Dioxide Level 31 mmol/L (20-31) Anion Gap 5 (5-15) Blood Urea Nitrogen 12 mg/dL (9-23) Creatinine 0.94 mg/dL (0.550-1.02) Glomerular Filtration Rate Calc 61 mL/min (>90) BUN/Creatinine Ratio 12.8 (10.0-20.0) Serum Glucose 156 mg/dL (74-106) Calcium Level 9.9 mg/dL (8.7-10.4) Magnesium Level 2.3 mg/dL (1.6-2.6) Troponin I High Sensitivity 10 ng/L (</=34) Blood Gas Specimen Type Arterial Blood Gas Sample Site Right radial Blood Gas Patient Temperature 37.0 Arterial Blood Date Drawn [id number] Arterial Blood pH 7.458 (7.350-7.450) Arterial Blood Partial Pressure CO2 39.7 mmHg (32.0-45.0) Arterial Blood Partial Pressure O2 58.5 mmHg (83.0-108.0) Arterial Blood HCO3 27.5 mmol/L (21.0-28.0) Arterial Blood Oxygen Saturation 88.6 % (94.0-98.0) Arterial Blood Base Excess 3.4 mmol/L (-2.0-3.0) Arterial Blood Oxyhemoglobin 87.6 % (94.0-98.0) Arterial Blood Carboxyhemoglobin 0.6 % (0.5-1.5) Arterial Blood Methemoglobin 0.5 % (0.0-1.5) [place] Test Yes Blood Gas Total Hemoglobin 12.40 g/dL (12.0-16.0) Blood Gas Modality Room air FiO2 % 21.0 White Blood Count 11.8 10^3/uL (4.4-10.8) Red Blood Count 4.77 10^6/uL (4.0-5.20) Hemoglobin 12.4 g/dL (12.2-16.2) Hematocrit 37.0 % (36.0-46.0) Mean Corpuscular Volume 77.5 fL (80.0-100.0) Mean Corpuscular Hemoglobin 25.9 pg (28.0-32.0) Mean Corpuscular Hemoglobin Concent 33.5 g/dL (32.0-36.0) Red Cell Distribution Width 14.5 % (11.8-14.3) Platelet Count 443 10^3/uL (140-450) Mean Platelet Volume 8.3 fL (6.9-10.8) Neutrophils (%) (Auto) 71.1 % (37.0-80.0) Lymphocytes (%) (Auto) 18.9 % (10.0-50.0) Monocytes (%) (Auto) 8.3 % (0.0-12.0) Eosinophils (%) (Auto) 1.4 % (0.0-7.0) Basophils (%) (Auto) 0.3 % (0.0-2.0) Neutrophils # (Auto) 8.4 10 ^3/uL (1.6-8.6) Lymphocytes # (Auto) 2.2 10 ^3/uL (0.4-5.4) Monocytes # (Auto) 1.0 10 ^3/uL (0-1.3) Eosinophils # (Auto) 0.2 10 ^3/uL (0-0.8) Basophils # (Auto) 0 10 ^3/uL (0-0.2) Nucleated Red Blood Cells 0.0 % Test 02/17/24 11:40 02/16/24 05:55 02/15/24 09:03 02/15/24 03:50 POC Glucose 119 mg/dl (70-106) Specimen Drawn [facility] Prothrombin Time 11.8 sec (9.3-11.8) Prothrombin Time INR 1.12 (0.9-1.15) Activated Partial Thromboplast Time 106.3 SEC (24.5-34.5) Total Bilirubin 0.3 mg/dL (0.2-1.0) Aspartate Amino Transferase (AST) 23 U/L (13-40) Alanine Aminotransferase (ALT) 31 U/L (7-40) Alkaline Phosphatase 116 U/L (46-116) Total Protein 6.0 g/dL (5.7-8.2) Albumin 3.8 g/dL (3.2-4.8) Test 02/14/24 14:32 02/14/24 13:45 02/14/24 05:59 02/14/24 04:04 Urine Color Light-yellow (Yellow) Urine Clarity Clear (Clear) Urine pH 6.5 (5.0-9.0) Urine Specific [place] 1.015 (1.001-1.035) Urine Protein 1+ (Negative) Urine Ketones Negative (Negative) Urine Blood Negative /uL (Negative) Urine Nitrite Negative (Negative) Urine Bilirubin Negative (Negative) Urine Urobilinogen Normal mg/dL (Negative) Urine Leukocyte Esterase Negative /uL (Negative) Urine RBC 1 /hpf (0 - 4) Urine WBC 3 /hpf (0 - 5) Urine Squamous Epithelial Cells Few /hpf (<5) Urine Bacteria None seen /hpf (None Seen) Urine Mucus Few (None Seen) Urine Glucose 4+ mg/dL (Normal) Lactic Acid Level 2.8 mmol/L (0.4-2.0) Influenza Type A Antigen Negative (Negative) Influenza Type B Antigen Negative (Negative) SARS-CoV-2 Antigen (Rapid) Negative (NEGATIVE) Hemoglobin A1c 6.2 % A1C (<5.7) B-Type Natriuretic Peptide 439.38 pg/mL (0-100) Thyroid Stimulating Hormone (TSH) 1.28 uIU/mL (0.55-4.78) Test 02/14/24 03:38 Blood Gas Spontaneous Rate 27 Blood Gas EPAP 6 Blood Gas IPAP 12 Other Laboratory Tests 02/22/24 09:10 02/20/24 05:36 Brief Hx & Hospital Course: History of Present Illness María Padilla is a an 83-year-old female with past medical history of hypertension, hyperlipidemia, depression, oa, and anxiety who presents to the ED for shortness of breath x1 day. Patient reports that she lives with her family and she just suddenly woke up feeling short of breath was in a tripod position. EMS was called placed her on a CPAP and brought her to the ER for evaluation. Patient also reports that she uses about 2-3 L of nasal cannula on and off at home for shortness of breath. Patient states that there are no triggering or alleviating factors. Patient also reports that she is compliant with her medications and she has been seeing her PCP regularly. Patient denies any chest pain, fever, chills, nausea, vomiting, abdominal pain, lightheadedness, dizziness, any recent sick contacts, and any recent travels. Course of hospitalization: Patient was placed on high-flow nasal cannula, alternating with BiPAP. During her initial days in the hospital she developed severe chest pain, noted to be clenching left side of her chest with noted ST depression in precordial leads. 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 Patient was eventually weaned off of high- flow nasal cannula, currently on 2 L via nasal cannula now. Patient was found to be in severe pulmonary vascular congestion which resolved with Lasix drip, which was transitioned to pulse dose Lasix daily, which is now given orally. Patient was titrated up with goal-directed medical therapy for heart failure given improvement with the patient's blood pressure. Patient was now ambulating with a walker, which she states that she has not home, as well as O2 supplementation at home. She was instructed to continue medications as described in her medication reconciliation, and will be provided home health services for medication management as well as assistance with physical therapy. Family was bedside with the discharge planning. All parties are in agreement. She will follow up with her PCP in 1-2 weeks. Physical exam General: Alert and Oriented x3. No acute distress. Well-nourished. Eyes: EOMI. Anicteric. HENT: Moist mucous membranes. Lungs: Clear to auscultation bilaterally. No accessory muscle use. Cardiovascular: Regular rate and rhythm. No murmur. No JVD. Abdomen: Soft, non-tender and non-distended. No palpable masses. Extremities: No edema. Non-tender. Skin: No rashes or lesions. Warm. Neurologic: No focal neurological deficits. CN II-XII grossly intact, but not individually tested. Psychiatric: Cooperative. Appropriate mood and affect. Total time spent with patient discussing and formulating plan of care: 35 minutes. This medical document was created using an electronic medical record system with [employer] dictation system. Although this document has been carefully reviewed, there may still be some phonetic and typographical errors. These areas are purely typographical due to imperfections of the software programs, and do not reflect any compromise in the patient's medical care. Consults/Reason for consult Cardiology: Decompensated heart failure, NSTEMI type 2 Condition at Discharge: Guarded Final Diagnosis/Problems List Decompensated systolic heart failure Secondary Diagnosis: -acute hypoxic respiratory failure -acute decompensated systolic heart failure -leukocytosis, rule out sepsis -hypothyroidism -dyslipidemia -primary hypertension -acute coronary syndrome -anxiety disorder Discharge Disposition: Home with Health Services Discharge Instruct/Medications Diet: Consistent carbohydrate, Cardiac 2g Na,low cholest Activity: No Restrictions, As Tolerated Follow Up/Referral: [place] clinic in 1 week Medications: Refer to med rec form 36 Discharge Statement: "Patient was advised to return to the ER or call 911 if any headaches, dizziness, shortness of breath, chest pain, abdominal pain, bleeding, fevers, or worsening of medical condition. Patient was counseled about treatment plan, medications, possible side effects, patientverbalized understanding. All questions were answered to the best of my ability. This discharge took greater then 30 minutes in planning, reviewing documentation, counseling the patient, and discussing with other team members." ASSESSMENT ASSESSMENT Assessment Decompensated systolic heart failure Date of Service: Feb 24, 2024 Billing Provider: WILMAR MENDES NP Common Visit Codes: 33166-FXJ/OBS DISCH DAY >30min WILMAR MENDES NP Feb 24, 2024 14:13
[2024-02-24] MEDS ORDERED: MET25T PO (14:18)
[2024-02-24] MEDS ORDERED: LOS25T PO (14:18)
[2024-02-24] MEDS ORDERED: ATOR20TA50 PO (14:18)
[2024-02-24] MEDS ORDERED: EMPA1TAB PO (14:18)
[2024-02-24] MEDS ORDERED: APIX2.5T PO (14:18)
[2024-02-24] MEDS ORDERED: HYDRX10T PO (14:18)
[2024-02-24] MEDS ORDERED: FURO1TAB31 PO (14:18)
--- NOTE | 2024-02-24 23:43 | DVHPN2 ---
Progress Note - Dictate Date Seen: Feb 24, 2024 Medical Necessity Reason Pt with a Central, PICC or Fol: Yes The following are medically ne: Chaudhry Catheter Reason for chaudhry catheter: Strict I&O Subjective Patient seen and examined at bedside. On supplemental oxygen Overnight events reviewed. vital signs Vital Sign Date Time Temp Pulse Resp B/P (MAP) Pulse Ox O2 Delivery O2 Flow Rate FiO2 02/24/24 22:13 74 106/52 02/24/24 21:00 98.4 18 92 98.4 02/24/24 20:00 Nasal Cannula* 2 28 Total Intake and Output 02/23/24 02/23/24 02/24/24 15:00 23:00 07:00 Intake Total 50 ml 1040 ml 140 ml Output Total 1100 ml 700 ml Balance 50 ml -60 ml -560 ml medications Current Medications Medications Dose Ordered Sig/Bria Route Start Time Stop Time Status Last Admin Dose Admin Acetaminophen/ Hydrocodone Bitart 1 tab Q4HP PRN PO 02/14/24 06:30 02/24/24 21:12 1 TAB Ondansetron HCl 4 mg Q4HP PRN IV 02/14/24 06:30 02/20/24 03:16 4 MG Acetaminophen 650 mg Q6HP PRN PO 02/14/24 06:30 Morphine Sulfate 2 mg Q4HPRN PRN IV 02/14/24 06:30 02/21/24 10:05 2 MG Nitroglycerin 0.4 mg Q5MINP PRN SL 02/14/24 06:30 02/21/24 21:52 0.4 MG Morphine Sulfate 2 mg Q30M PRN IV 02/14/24 06:30 02/22/24 03:02 2 MG Ceftriaxone Sodium 50 ml @ 100 mls/hr DAILY@09 IV 02/15/24 09:00 02/24/24 09:10 100 MLS/HR Albuterol 2.5 mg Q6HWA NEB 02/14/24 12:00 02/24/24 18:19 2.5 MG Albuterol 2.5 mg Q4HPRN PRN NEB 02/14/24 06:30 Ipratropium [place] 0.5 mg Q6HWA NEB 02/14/24 12:00 02/24/24 18:19 0.5 MG Ipratropium [place] 0.5 mg Q4HPRN PRN NEB 02/14/24 06:30 Budesonide 0.5 mg BID NEB 02/14/24 10:00 02/24/24 18:19 0.5 MG Aspirin 81 mg DAILY PO 02/14/24 10:00 02/24/24 09:30 81 MG Atorvastatin Calcium 40 mg HS PO 02/14/24 22:00 02/24/24 21:11 40 MG Metoprolol Tartrate 12.5 mg BID PO 02/14/24 10:00 02/24/24 21:13 12.5 MG Losartan Potassium 12.5 mg DAILY PO 02/14/24 10:00 02/24/24 09:33 12.5 MG Empaglifozin 10 mg DAILY PO 02/14/24 10:00 02/24/24 09:31 10 MG Spironolactone 25 mg DAILY PO 02/14/24 10:00 02/24/24 09:33 25 MG Citalopram Hydrobromide 20 mg DAILY PO 02/17/24 10:00 02/24/24 09:33 20 MG Magnesium Oxide 400 mg DAILY PO 02/17/24 10:00 02/24/24 09:33 400 MG Bumetanide 1 mg BIDD IV 02/17/24 18:00 02/24/24 17:50 1 MG Hydroxyzine HCl 10 mg Q6HP PRN PO 02/17/24 09:00 02/20/24 13:49 10 MG Enteral Nutritional Formula 240 ml TIDWM PO 02/18/24 08:00 02/20/24 18:00 240 ML Potassium Bicarbonate 25 meq DAILY PO 02/18/24 10:00 02/24/24 09:28 25 MEQ Apixaban 2.5 mg BID PO 02/18/24 10:00 02/24/24 21:10 2.5 MG objective Gen.: Patient lying in bed in no apparent distress. On supplemental oxygen Head: Normocephalic, atraumatic. Eyes: EOMI/PERRLA. Ears: Normal hearing. Normal anatomy. Neck/trachea: Trachea midline, supple. Nose: Normal external anatomy. Mouth: Moist mucous membranes. Chest: Decreased air entry bilaterally. No wheezing or rhonchi. Cardiovascular: Positive S1, positive S2. Regular rate and rhythm. Abdomen: Positive bowel sounds in all 4 quadrants. Soft, non-tender, non- distended. : Deferred. Rectal: Deferred. Skin: Warm, dry. Intact. Extremities: 2+ radial pulses bilaterally. No lower extremity edema. Neuro: Awake, alert, oriented x3. No gross motor or sensory deficits. Cranial nerves II through XII intact. Gait not assessed. laboratory and microbiology Laboratory Tests 02/22/24 09:10 02/20/24 05:36 Test 02/22/24 09:10 Range/Units Serum Glucose 156 H 74-106 mg/dL Assessment/Plan Impression: Acute hypoxic respiratory failure Dependence on supplemental oxygen Acute decompensated systolic heart failure Leukocytosis Hypertension Obesity Events: Remains on supplemental oxygen On 4 LPM NC Continue to taper as tolerated Epistaxis is resolved. Continue antibiotics Continue bronchodilators Incentive spirometry Continue Aldactone Anxiolytic PRN anxiety Diurese w/ Bumex as tolerated Monitor renal function. Monitor electrolytes. Supplement as necessary. Pain control Avoid oversedation Labs and imaging reviewed. Rest of plan as noted below Plan: Supplemental oxygen Titrate to keep O2 sats above 92%. Continue antibiotics Monitor WBC Monitor blood pressure closely Start Levophed if SBP <90 mmHg Monitor renal function. Monitor electrolytes. Supplement as necessary. Monitor ins and outs. Cardiology recs appreciated. Anxiolytic PRN anxiety. Diet and lifestyle modifications for weight reduction Obesity - complicates all care DVT prophylaxis. Prognosis: Poor given patient's multiple co-morbidities. Rest of plan per hospitalist and other consultants. Thank you, KARI Cruz, for allowing me to participate in this patient's care. Further recommendations will depend on the patient's clinical course. Please do not hesitate to contact me if you have any questions or concerns. This medical document was created using an electronic medical record system with [employer] dictation system. Although these documentations are being carefully reviewed, there may still be some phonetic and typographical changes. The errors are purely typographical, due to imperfection on the software program, and do not reflect any compromise in the patient's medical care. Dietary Evaluation Review Comments: Continue current plan of care Expected Outcomes/Goals: F/U in 3-5 days Plan discussed with: Patient, Other (MARIBELL Denson) LANA PARHAM MD Feb 24, 2024 23:42
[2024-02-25] VITALS (13 sets, daily range): BP systolic 92–132; BP diastolic 46–60; PULSE 61–78; RESP 16–20; TEMP 97.7–98.4; O2SAT 91–98
[2024-02-25] MEDS: ACETAMINOPHEN 325 MG TAB PO PRN (00:51)
--- NOTE | 2024-02-25 14:15 | DVHPN2 ---
Reviewed: Care Plan, H&P, Labs, Medications Changes from previous H/P or p: No Changes General: Per HPI Eyes: No Pain, No Vision change, No Conjunctivae inflammation, No Eyelid inflammation, No Other, No Redness ENT: No Ear pain, No Ear discharge, No Nose pain, No Nose discharge, No Nose congestion, No Mouth pain, No Mouth swelling, No Throat pain, No Throat swelling, No Other Cardiovascular: Other Respiratory: Shortness of breath Gastrointestinal: No Nausea, No Vomiting, No Abdominal Pain, No Diarrhea, No Constipation, No Melena, No Hematochezia, No Other Genitourinary: No Dysuria, No Frequency, No Incontinence, No Hematuria, No Retention, No Other Musculoskeletal: No other, No neck pain, No shoulder pain, No arm pain, No back pain, No hand pain, No leg pain, No foot pain Skin: No Rash, No Lesions, No Jaundice, No Bruising, No Other Objective Vitals Vital Signs Date Time Temp Pulse Resp B/P (MAP) Pulse Ox O2 Delivery O2 Flow Rate FiO2 02/25/24 13:00 98.4 71 16 116/46 (69) 95 98.4 02/25/24 11:11 Nasal Cannula 2.0 02/25/24 11:11 28 Intake/Output Intake and Output 02/25/24 07:00 Intake Total 1214 ml Output Total 350 ml Balance 864 ml Intake Oral 1214 ml Output Urine Total 350 ml # Bowel Movements 1 General Appearance: Alert, Oriented X3, Cooperative, mild distress HEENT: Atraumatic, PERRLA, EOMI Lungs: Clear to auscultation, Normal air movement Cardiovascular: Normal S1, Normal S2 Abdomen: Normal bowel sounds, Soft, No tenderness, No hepatospenomegaly Musculoskeletal: Normal sensory function, Normal motor function Neuro: Normal gait, Normal speech Skin: Dry, Intact Psych/Mental Status: Mental status NL, Mood NL Medications Current Medications Medications Dose Ordered Sig/Bria Route Start Time Stop Time Status Last Admin Dose Admin Acetaminophen/ Hydrocodone Bitart 1 tab Q4HP PRN PO 02/14/24 06:30 02/25/24 05:32 1 TAB Ondansetron HCl 4 mg Q4HP PRN IV 02/14/24 06:30 02/20/24 03:16 4 MG Acetaminophen 650 mg Q6HP PRN PO 02/14/24 06:30 02/25/24 00:51 650 MG Morphine Sulfate 2 mg Q4HPRN PRN IV 02/14/24 06:30 02/21/24 10:05 2 MG Nitroglycerin 0.4 mg Q5MINP PRN SL 02/14/24 06:30 02/21/24 21:52 0.4 MG Morphine Sulfate 2 mg Q30M PRN IV 02/14/24 06:30 02/22/24 03:02 2 MG Ceftriaxone Sodium 50 ml @ 100 mls/hr DAILY@09 IV 02/15/24 09:00 02/25/24 10:29 100 MLS/HR Albuterol 2.5 mg Q6HWA [facility] 02/14/24 12:00 02/25/24 11:11 2.5 MG Albuterol 2.5 mg Q4HPRN PRN [facility] 02/14/24 06:30 Ipratropium [place] 0.5 mg Q6HWA [facility] 02/14/24 12:00 02/25/24 11:11 0.5 MG Ipratropium [place] 0.5 mg Q4HPRN PRN [facility] 02/14/24 06:30 Budesonide 0.5 mg BID [facility] 02/14/24 10:00 02/24/24 18:19 0.5 MG Aspirin 81 mg DAILY PO 02/14/24 10:00 02/25/24 10:53 81 MG Atorvastatin Calcium 40 mg HS PO 02/14/24 22:00 02/24/24 21:11 40 MG Metoprolol Tartrate 12.5 mg BID PO 02/14/24 10:00 02/25/24 10:51 12.5 MG Losartan Potassium 12.5 mg DAILY PO 02/14/24 10:00 02/25/24 10:54 12.5 MG Empaglifozin 10 mg DAILY PO 02/14/24 10:00 02/25/24 10:54 10 MG Spironolactone 25 mg DAILY PO 02/14/24 10:00 02/25/24 10:52 25 MG Citalopram Hydrobromide 20 mg DAILY PO 02/17/24 10:00 02/25/24 10:53 20 MG Magnesium Oxide 400 mg DAILY PO 02/17/24 10:00 02/25/24 10:52 400 MG Bumetanide 1 mg BIDD IV 02/17/24 18:00 02/25/24 05:30 1 MG Hydroxyzine HCl 10 mg Q6HP PRN PO 02/17/24 09:00 02/20/24 13:49 10 MG Enteral Nutritional Formula 240 ml TIDWM PO 02/18/24 08:00 02/25/24 12:00 240 ML Potassium Bicarbonate 25 meq DAILY PO 02/18/24 10:00 02/25/24 10:50 25 MEQ Apixaban 2.5 mg BID PO 02/18/24 10:00 02/25/24 10:53 2.5 MG Laboratory Results Laboratory Tests 02/20/24 05:36 02/22/24 09:10 Urinalysis Test 02/14/24 14:32 Urine Color Light-yellow (Yellow) Urine Clarity Clear (Clear) Urine pH 6.5 (5.0-9.0) Urine Specific [place] 1.015 (1.001-1.035) Urine Protein 1+ (Negative) H Urine Ketones Negative (Negative) Urine Blood Negative /uL (Negative) Urine Nitrite Negative (Negative) Urine Bilirubin Negative (Negative) Urine Urobilinogen Normal mg/dL (Negative) Urine Leukocyte Esterase Negative /uL (Negative) Urine RBC 1 /hpf (0 - 4) Urine WBC 3 /hpf (0 - 5) Urine Squamous Epithelial Cells Few /hpf (<5) Urine Bacteria None seen /hpf (None Seen) Urine Mucus Few (None Seen) Urine Glucose 4+ mg/dL (Normal) H Microbiology Microbiology Date/Time Source Procedure Growth Status 02/15/24 19:57 Nose MRSA Screen - Final Complete 02/14/24 13:45 Blood Blood Culture - Final NO GROWTH AFTER 5 DAYS OF INCUBATION. Complete Labs and/or images reviewed: Labs reviewed by me, Image(s) reviewed by me Assessment/Plan Assessment/Plan Covering for nurse practitioner oMmo Cruz -acute hypoxic respiratory failure -acute decompensated systolic heart failure -leukocytosis, rule out sepsis -hypothyroidism -dyslipidemia -primary hypertension -acute coronary syndrome -anxiety disorder Patient was Discharged home on home health on 02-24-24 Director Of Software [employer] arranging home health Examined today. No new complaints. The patient's daughter at the bedside. Plan discussed with: Patient Date of Service: Feb 25, 2024 Billing Provider: KARYNA TOVAR MD Common Visit Codes: [id number] INP/OBS CARE(HIGH) KARYNA TOVAR MD Feb 25, 2024 14:15
--- NOTE | 2024-02-25 22:34 | DVHPN2 ---
Progress Note - Dictate Date Seen: Feb 25, 2024 Medical Necessity Reason Pt with a Central, PICC or Fol: No The following are medically ne: Chaudhry Catheter Reason for chaudhry catheter: Strict I&O Subjective Patient seen and examined at bedside. On supplemental oxygen Overnight events reviewed. vital signs Vital Sign Date Time Temp Pulse Resp B/P (MAP) Pulse Ox O2 Delivery O2 Flow Rate FiO2 02/25/24 16:00 71 02/25/24 13:00 98.4 16 116/46 (69) 95 98.4 02/25/24 11:11 Nasal Cannula 2.0 02/25/24 11:11 28 Total Intake and Output 02/24/24 02/24/24 02/25/24 15:00 23:00 07:00 Intake Total 700 ml 514 ml Output Total 350 ml Balance 700 ml 164 ml objective Gen.: Patient lying in bed in no apparent distress. On supplemental oxygen Head: Normocephalic, atraumatic. Eyes: EOMI/PERRLA. Ears: Normal hearing. Normal anatomy. Neck/trachea: Trachea midline, supple. Nose: Normal external anatomy. Mouth: Moist mucous membranes. Chest: Decreased air entry bilaterally. No wheezing or rhonchi. Cardiovascular: Positive S1, positive S2. Regular rate and rhythm. Abdomen: Positive bowel sounds in all 4 quadrants. Soft, non-tender, non- distended. : Deferred. Rectal: Deferred. Skin: Warm, dry. Intact. Extremities: 2+ radial pulses bilaterally. No lower extremity edema. Neuro: Awake, alert, oriented x3. No gross motor or sensory deficits. Cranial nerves II through XII intact. Gait not assessed. laboratory and microbiology Laboratory Tests 02/22/24 09:10 02/20/24 05:36 Test 02/22/24 09:10 Range/Units Serum Glucose 156 H 74-106 mg/dL Assessment/Plan Impression: Acute hypoxic respiratory failure Dependence on supplemental oxygen Acute decompensated systolic heart failure Leukocytosis Hypertension Obesity Events: Remains on supplemental oxygen On 2 LPM NC Improving O2 requirements Continue to taper as tolerated Epistaxis is resolved. Continue antibiotics Continue bronchodilators Incentive spirometry Continue Aldactone Anxiolytic PRN anxiety Diurese w/ Bumex as tolerated Monitor renal function. Monitor electrolytes. Supplement as necessary. Pain control Avoid oversedation Patient is stable for discharge from the pulmonary standpoint. Disposition per hospitalist. Awaiting home O2 arrangements Labs and imaging reviewed. Rest of plan as noted below Plan: Supplemental oxygen Titrate to keep O2 sats above 92%. Continue antibiotics Monitor WBC Monitor blood pressure closely Start Levophed if SBP <90 mmHg Monitor renal function. Monitor electrolytes. Supplement as necessary. Monitor ins and outs. Cardiology recs appreciated. Anxiolytic PRN anxiety. Diet and lifestyle modifications for weight reduction Obesity - complicates all care DVT prophylaxis. Prognosis: Poor given patient's multiple co-morbidities. Rest of plan per hospitalist and other consultants. Thank you, KARI Cruz, for allowing me to participate in this patient's care. Further recommendations will depend on the patient's clinical course. Please do not hesitate to contact me if you have any questions or concerns. This medical document was created using an electronic medical record system with [employer] dictation system. Although these documentations are being carefully reviewed, there may still be some phonetic and typographical changes. The errors are purely typographical, due to imperfection on the software program, and do not reflect any compromise in the patient's medical care. Dietary Evaluation Review Comments: Continue current plan of care Expected Outcomes/Goals: F/U in 3-5 days Plan discussed with: Patient, Other (MARIBELL Ewing) LANA PARHAM MD Feb 25, 2024 22:34
== END 2024-02-25 17:45 | disposition home health service (06) | DRG 286 ==
LOC: ER 02:25 → EDBD 02:25 → EDUNIT# 06:20 → TELE 06:20 → ICU WEST 02-15 18:16 → DOU IN ICU 02-19 14:50 → CENTRAL 02-20 16:36 → TELE-CENTR 02-20 16:40 → CENTRAL 02-21 22:09
PROVIDERS: ADMIT Nurse Practitioner Acute Care; ATTEND Nurse Practitioner Acute Care
PROC: 5A09457 Assistance with Respiratory Ventilation, 24-96 Consecutive Hours, Continuous Positive Airway Pressure (ICD-10-PCS; 2024-02-14)
PROC: 4A023N7 Measurement of Cardiac Sampling and Pressure, Left Heart, Percutaneous Approach (ICD-10-PCS; principal; 2024-02-15)
PROC: B211YZZ Fluoroscopy of Multiple Coronary Arteries using Other Contrast (ICD-10-PCS; 2024-02-15)
PROC: 5A09357 Assistance with Respiratory Ventilation, Less than 24 Consecutive Hours, Continuous Positive Airway Pressure (ICD-10-PCS; 2024-02-16)
PROC: 5A0935A Assistance with Respiratory Ventilation, Less than 24 Consecutive Hours, High Flow/Velocity Cannula (ICD-10-PCS; 2024-02-16)
PROC: 5A09357 Assistance with Respiratory Ventilation, Less than 24 Consecutive Hours, Continuous Positive Airway Pressure (ICD-10-PCS; 2024-02-17)
PROC: 5A0935A Assistance with Respiratory Ventilation, Less than 24 Consecutive Hours, High Flow/Velocity Cannula (ICD-10-PCS; 2024-02-17)
PROC: 5A0935A Assistance with Respiratory Ventilation, Less than 24 Consecutive Hours, High Flow/Velocity Cannula (ICD-10-PCS; 2024-02-18)
DX: I11.0 Hypertensive heart disease with heart failure (principal); I50.23 Acute on chronic systolic (congestive) heart failure; J18.9 Pneumonia, unspecified organism; J96.21 Acute and chronic respiratory failure with hypoxia; J96.22 Acute and chronic respiratory failure with hypercapnia; I24.9 Acute ischemic heart disease, unspecified; J44.0 Chronic obstructive pulmonary disease with (acute) lower respiratory infection; J98.11 Atelectasis; I42.8 Other cardiomyopathies; Z20.822 Contact with and (suspected) exposure to COVID-19; E03.9 Hypothyroidism, unspecified; E78.5 Hyperlipidemia, unspecified; F32.A Depression, unspecified; M81.0 Age-related osteoporosis without current pathological fracture; R73.03 Prediabetes; E66.9 Obesity, unspecified; F41.0 Panic disorder [episodic paroxysmal anxiety]; G62.9 Polyneuropathy, unspecified; I34.0 Nonrheumatic mitral (valve) insufficiency; R04.0 Epistaxis; Z80.8 Family history of malignant neoplasm of other organs or systems; Z82.5 Family history of asthma and other chronic lower respiratory diseases; Z99.81 Dependence on supplemental oxygen; Z87.891 Personal history of nicotine dependence; Z90.710 Acquired absence of both cervix and uterus; Z79.899 Other long term (current) drug therapy; Z68.31 Body mass index [BMI] 31.0-31.9, adult
CPT/HCPCS: 36415; 36600; 71045; 71250; 76604; 80048; 80053; 81001; 82040; 82805; 82962; 83036; 83605; 83735; 83880; 84132; 84443; 84484; 85025; 85610; 85730; 86850; 86900; 86901; 87040; 87081; 87426; 87804; 93005; 93306; 93458; 94003; 94640; 94660; 97116; 97163; 97530; 99152; G0378; J1815; J2003; J2250; J2405; J3480; J3490; Q9967